=== PATIENT | female | born 1940 | race Caucasian/White ===

== ENCOUNTER → 2017-09-28 | Outpatient (REF) | payer MEDICARE ==
[2014-06-05 15:19] VITALS: BMI 27.3
[~2017-09-28] MED LIST: ACET-1748 PO; ACET-2031 PO; ALB0.5 INH; ALBU8.5H IH; ALBU8.5H12 IH; AMLO-99 PO; ASP325 PO; ASPI-1441 PO; ASPI-1471 PO; ASPI-715 PO; ASPI-719 PO; ASPI-757 PO; ASPI81TA94 PO; AZIT500T47 PO; BACDS PO; BENZ100C4 PO; CALC-488 PO; CEF300 PO; CEFD300C35 PO; CEFU250 PO; CELE100C79 PO; CELEXA; CEPH500C24; CEPH500T7 PO; CHOL200021 PO; CIP500 PO; CIPR-326 PO; CIPR-344 PO; CLO75 PO; CLON-393 PO; CLON1 PO; CRAN400C2 PO; CYC10 PO; DIAZ-308 PO; DOCU-202 PO; DOXY-228 PO; DUONEB INH; ENAL20TA99 PO; GAB300 PO; GABA-549 PO; GLIP-152 PO; GLIP-175 PO; GUA5L PO; GUALA600 PO; HCTZ25 PO; HYDEL PO; HYDR-2966 PO; HYDR-3078 PO; HYDR-385 PO; HYDR2TAB4 PO; HYDR473S4 PO; INSU100C12 SQ; INSU100I30 SQ; INSU500V2 SC; INSU500V2 SUBQ; IPRA3AMP IH; KET10 PO; LANI SC; LANI SQ; LANI SUBQ; LEV500 PO; LEVE500 PO; LEVE500T88 PO; LEVO75TA73 PO; LOR5/325; LOR5/325 PO; LORA-1221 PO; LORA-1254 PO; LORA-1455 PO; LORA-630 PO; MECL25TA9 PO; MEMA10TA18 PO; METF-420 PO; METO-222 PO; METO-235 PO; METO-257 PO; METO200T32 PO; METO200T33 PO; METXL50 PO; NAPR-1043 PO; NEUROTIN; NIT100 PO; NIT4 SL; NITR0.4T3 SL; NITROPATCH TD; NOVOLOG SUBQ; NPH,100V10 SQ; ONDA-153 SL; ONDA-2 PO; ONDA4TAB PO; OXYGEN INH; OXYGENHOME INH; PANT40TA65 PO; PER PO; POLY17PO25 PO; POTA-23 PO; POTA10CA40 PO; POTA20PA10 PO; PRA20 PO; PRAV20TA66 PO; PRE10 PO; PRE20 PO; PRED-314 PO; QUIN20TA43 PO; SERT-184 PO; SULF-198 PO; SUMA100T32 PO; TRAM-420 PO; TRAM100T22 PO; TRAM100T30 PO; VERS120 PO; ZOLP-350 PO; [UNRECOGNIZED DRUG - CODE] PO; [UNRECOGNIZED DRUG - CODE] SQ; [UNRECOGNIZED DRUG - OTHER]; [UNRECOGNIZED DRUG - OTHER] SQ; [UNRECOGNIZED DRUG - OTHER] TOP
== END ==
LOC: ZZSENDIN 15:25
PROVIDERS: ATTEND Physician Assistant
DX: I50.30 Unspecified diastolic (congestive) heart failure (principal)
CPT/HCPCS: 83880

== ENCOUNTER 2017-10-05 17:23 | Inpatient (IN) | payer MEDICARE ==
[~2017-10-05] VITALS: Ht 160 cm; Wt 87.7 kg
[~2017-10-05 17:23] MED LIST changes: -ALB18R INH; -FURO20TA19 PO; -INSU100I30 SUBQ; -INSU200I SQ; -NITR-1 PO; -TAMS0.4C70 PO
[2017-10-05] MEDS ORDERED: NS(*) 0.9% 1000 ML BAG 1,000 ML IV ONE (17:27)
[2017-10-05] MEDS ORDERED: ONDANSETRON 4 MG/2 ML VIAL IVP ONE (17:30)
--- NOTE | 2017-10-05 17:31 | ER Report ---
History and Physical Time Seen By MD: 17:29 Hx. of Stated Complaint: fall head pain HPI/ROS 77-year-old female was out shopping with her family members became weak and dizzy L exiting a store passed out and hit her head on a gas pipe and has a bruise on her right parietal area of her head complains of head pain and neck pain states she has not eaten since breakfast this morning and does have a long history of COPD he is oxygen dependent and sats were mid 80s on ambulances arrival. Daughter tells me she's been working with Esequiel Wooten they have given her Lasix which she's taken a little over one week Allergies: Coded Allergies: morphine (Verified Allergy, Unknown, HIVES, 05/20/17) codeine (Verified Adverse Reaction, Unknown, NAUSEA/VOMITING, 05/20/17) Home Meds Active Scripts Albuterol Sul Hfa 90 Mcg 8 Gm (VENTOLIN HFA 90 MCG 8 GM) 8.5 Gm Hfa.aer.ad, 2 PUFF IH Q4-6H, #1 Prov:DINORAH BLANCO DO 11/21/14 Reported Medications Furosemide (LASIX) 20 Mg Tablet, 1 TAB PO Q8H, TAB 10/05/17 Sertraline Hcl (SERTRALINE HCL) 50 Mg Tablet, 1 TAB PO QDAY, TAB 01/25/17 Oxygen (OXYGEN) Inha, 0 INH, L 06/21/15 Nitroglycerin (NITROSTAT) 0.4 Mg Subl, 0.4 MG SL PRN, TAB 06/21/15 Insulin Aspart (NOVOLOG) 100 Unit/Ml Soln, 14 UNIT SUBQ TID, UNITS 06/21/15 Insulin Glargine (LANTUS) 100 Unit/Ml Soln, 30 UNIT SUBQ BID, UNITS 06/21/15 Aspirin (ASPIR 81) 81 Mg Tablet.dr, 81 MG PO QDAY, TAB 06/21/15 Gabapentin (GABAPENTIN) 300 Mg Capsule, 300 MG PO TID, CAPSULE 06/21/15 Potassium Chloride (POTASSIUM CHLORIDE) 10 Meq Capsule.er, 10 MEQ PO BID, CAP 06/21/15 Pravastatin Sodium (PRAVASTATIN SODIUM) 20 Mg Tablet, 20 MG PO QDAY, TAB 06/21/15 Pantoprazole Sodium (PANTOPRAZOLE SODIUM) 40 Mg Tablet.dr, 40 MG PO QDAY, TAB.SR 06/21/15 Metoprolol Tartrate (METOPROLOL TARTRATE) 100 Mg Tablet, 1 TAB PO BID, TAB 06/21/15 Enalapril Maleate (ENALAPRIL MALEATE) 20 Mg Tablet, 20 MG PO BID, TAB 06/21/15 Amlodipine Besylate (AMLODIPINE BESYLATE) 10 Mg Tablet, 1 TAB PO QDAY, TAB 06/21/15 Past Medical/Surgical History History of laser surgery to the left eye, history of glaucoma, tonsillectomy, CVA, dementia, seizures, peripheral neuropathy, head trauma, memory loss, weakness, NM, CHF, CAD, cardiac catheter, coronary stent, anticoagulate and therapy,Diabetes Reviewed Nurses Notes: Yes Old Medical Records Reviewed: Yes Hx Smoking: No Smoking Status: Former Smoker Exposure to Second Hand Smoke?: Yes Hx Substance Use Disorder: No Hx Alcohol Use: No Family History of: Diabetes Constitutional Vital Sign - Last 24 Hours 10/05/17 10/05/17 10/05/17 10/05/17 17:23 17:27 17:30 17:31 Temp 97.9 Pulse ??? 63 Resp 18 B/P (MAP) 147/93 137/125 (129) 147/93 (111) Pulse Ox 93 O2 Delivery Room Air 10/05/17 10/05/17 10/05/17 10/05/17 17:38 17:45 17:53 18:00 Pulse 63 62 Resp 91 8 B/P (MAP) 138/105 (116) 132/87 (102) Pulse Ox 92 98 10/05/17 10/05/17 10/05/17 10/05/17 18:08 18:17 18:23 18:30 Pulse ??? 62 Resp 11 B/P (MAP) 128/52 (77) 133/72 (92) Pulse Ox 92 10/05/17 10/05/17 10/05/17 10/05/17 18:38 18:45 18:53 19:00 Pulse 70 71 Resp 21 14 B/P (MAP) 137/99 (112) 145/93 (110) Pulse Ox 92 96 10/05/17 10/05/17 10/05/17 19:08 19:15 19:33 Pulse 68 Resp 15 B/P (MAP) 136/75 (95) Pulse Ox 98 O2 Flow Rate 3.0 Physical Exam 77-year-old female is awake alert answers questions had normocephalic she does have bruising in her right parietal aspect of her head tympanic membranes are non-reddened throat is non-reddened neck is supple no JVD slight pain right side with movement she is wearing a c-collar on arrival placed by EMS heart rate is regular chest wall intact abdomen is obese the pain palpation bowel sounds 4 moves all extremities trace edema to bilateral lower extremities Medical Decision Making Data Points Result Diagram: 10/05/17174910/05/171749 Laboratory Hematology Test 10/05/17 17:50 10/05/17 17:51 10/05/17 19:01 Red Blood Count 4.58 M/uL (4.17-5.56) Mean Corpuscular Volume 81.6 fL (80.0-96.0) Mean Corpuscular Hemoglobin 26.9 pg (26.0-33.0) Mean Corpuscular Hemoglobin Concent 33.0 g/dL (32.0-36.0) Red Cell Distribution Width 14.7 % (11.5-14.5) Mean Platelet Volume 9.4 fL (7.2-11.1) Neutrophils (%) (Auto) 44.5 % (39.4-72.5) Lymphocytes (%) (Auto) 42.8 % (17.6-49.6) Monocytes (%) (Auto) 8.8 % (4.1-12.4) Eosinophils (%) (Auto) 3.1 % (0.4-6.7) Basophils (%) (Auto) 0.8 % (0.3-1.4) Nucleated RBC Relative Count (auto) 0.0 /100WBC Neutrophils # (Auto) 3.1 K/uL (2.0-7.4) Lymphocytes # (Auto) 3.0 K/uL (1.3-3.6) Monocytes # (Auto) 0.6 K/uL (0.3-1.0) Eosinophils # (Auto) 0.2 K/uL (0.0-0.5) Basophils # (Auto) 0.1 K/uL (0.0-0.1) Nucleated RBC Absolute Count (auto) 0.00 K/uL Prothrombin Time 14.4 seconds (12.0-14.4) Prothromb Time International Ratio 1.12 Activated Partial Thromboplast Time 30 seconds (23-35) Sodium Level 136 mmol/L (137-145) Potassium Level 4.9 mmol/L (3.5-5.0) Chloride Level 101 mmol/L (98-107) Carbon Dioxide Level 25 mmol/L (22-31) Blood Urea Nitrogen 37 mg/dl (7-18) Creatinine 1.60 mg/dl (0.52-1.04) Glomerular Filtration Rate Calc 31.4 Random Glucose 247 mg/dl (75-110) Calcium Level 9.0 mg/dl (8.4-10.2) Total Bilirubin 0.4 mg/dl (0.2-1.3) Aspartate Amino Transf (AST/SGOT) 30 U/L (0-35) Alanine Aminotransferase (ALT/SGPT) 33 U/L (0-56) Alkaline Phosphatase 103 U/L (0-126) Troponin I < 0.012 ng/ml B-Type Natriuretic Peptide 458 pg/ml (0-100) Total Protein 7.6 gm/dl (6.3-8.2) Albumin 3.8 g/dl (3.5-5.0) Lipase 40 U/L (23-300) Whole Blood Glucose 234 mg/DL (75-110) Urine Color Yellow Urine Clarity Slightly-cloudy Urine pH 5.0 pH (4.8-9.5) Urine Specific [place] 1.012 Urine Protein Negative mg/dL (NEGATIVE) Urine Glucose (UA) 50 mg/dL (NEGATIVE) Urine Ketones Negative mg/dL (NEGATIVE) Urine Blood Negative (NEGATIVE) Urine Nitrite Negative (NEGATIVE) Urine Bilirubin Negative (NEGATIVE) Urine Urobilinogen Negative mg/dL (0.2-1.9) Urine Leukocyte Esterase Negative (NEGATIVE) Urine RBC 1 /HPF (0-2/HPF) Urine WBC 1 /HPF (0-5/HPF) Urine Squamous Epithelial Cells Many /LPF (</=FEW) Urine Bacteria Few /HPF (NONE-FEW) Urine Hyaline Casts Moderate /LPF (NONE-FEW) Urine Mucus Few /HPF (NONE-FEW) Chemistry Test 10/05/17 17:50 10/05/17 17:51 10/05/17 19:01 White Blood Count 7.1 k/uL (4.5-11.0) Red Blood Count 4.58 M/uL (4.17-5.56) Hemoglobin 12.3 g/dL (12.0-16.0) Hematocrit 37.4 % (34.0-47.0) Mean Corpuscular Volume 81.6 fL (80.0-96.0) Mean Corpuscular Hemoglobin 26.9 pg (26.0-33.0) Mean Corpuscular Hemoglobin Concent 33.0 g/dL (32.0-36.0) Red Cell Distribution Width 14.7 % (11.5-14.5) Platelet Count 166 K/uL (150-450) Mean Platelet Volume 9.4 fL (7.2-11.1) Neutrophils (%) (Auto) 44.5 % (39.4-72.5) Lymphocytes (%) (Auto) 42.8 % (17.6-49.6) Monocytes (%) (Auto) 8.8 % (4.1-12.4) Eosinophils (%) (Auto) 3.1 % (0.4-6.7) Basophils (%) (Auto) 0.8 % (0.3-1.4) Nucleated RBC Relative Count (auto) 0.0 /100WBC Neutrophils # (Auto) 3.1 K/uL (2.0-7.4) Lymphocytes # (Auto) 3.0 K/uL (1.3-3.6) Monocytes # (Auto) 0.6 K/uL (0.3-1.0) Eosinophils # (Auto) 0.2 K/uL (0.0-0.5) Basophils # (Auto) 0.1 K/uL (0.0-0.1) Nucleated RBC Absolute Count (auto) 0.00 K/uL Prothrombin Time 14.4 seconds (12.0-14.4) Prothromb Time International Ratio 1.12 Activated Partial Thromboplast Time 30 seconds (23-35) Glomerular Filtration Rate Calc 31.4 Calcium Level 9.0 mg/dl (8.4-10.2) Total Bilirubin 0.4 mg/dl (0.2-1.3) Aspartate Amino Transf (AST/SGOT) 30 U/L (0-35) Alanine Aminotransferase (ALT/SGPT) 33 U/L (0-56) Alkaline Phosphatase 103 U/L (0-126) Troponin I < 0.012 ng/ml B-Type Natriuretic Peptide 458 pg/ml (0-100) Total Protein 7.6 gm/dl (6.3-8.2) Albumin 3.8 g/dl (3.5-5.0) Lipase 40 U/L (23-300) Whole Blood Glucose 234 mg/DL (75-110) Urine Color Yellow Urine Clarity Slightly-cloudy Urine pH 5.0 pH (4.8-9.5) Urine Specific [place] 1.012 Urine Protein Negative mg/dL (NEGATIVE) Urine Glucose (UA) 50 mg/dL (NEGATIVE) Urine Ketones Negative mg/dL (NEGATIVE) Urine Blood Negative (NEGATIVE) Urine Nitrite Negative (NEGATIVE) Urine Bilirubin Negative (NEGATIVE) Urine Urobilinogen Negative mg/dL (0.2-1.9) Urine Leukocyte Esterase Negative (NEGATIVE) Urine RBC 1 /HPF (0-2/HPF) Urine WBC 1 /HPF (0-5/HPF) Urine Squamous Epithelial Cells Many /LPF (</=FEW) Urine Bacteria Few /HPF (NONE-FEW) Urine Hyaline Casts Moderate /LPF (NONE-FEW) Urine Mucus Few /HPF (NONE-FEW) Coagulation Test 10/05/17 17:50 Prothrombin Time 14.4 seconds Prothromb Time International Ratio 1.12 Activated Partial Thromboplast Time 30 seconds Urinalysis Test 10/05/17 19:01 Urine Color Yellow Urine Clarity Slightly-cloudy Urine pH 5.0 pH (4.8-9.5) Urine Specific [place] 1.012 Urine Protein Negative mg/dL (NEGATIVE) Urine Glucose (UA) 50 mg/dL (NEGATIVE) Urine Ketones Negative mg/dL (NEGATIVE) Urine Blood Negative (NEGATIVE) Urine Nitrite Negative (NEGATIVE) Urine Bilirubin Negative (NEGATIVE) Urine Urobilinogen Negative mg/dL (0.2-1.9) Urine Leukocyte Esterase Negative (NEGATIVE) Urine RBC 1 /HPF (0-2/HPF) Urine WBC 1 /HPF (0-5/HPF) Urine Squamous Epithelial Cells Many /LPF (</=FEW) Urine Bacteria Few /HPF (NONE-FEW) Urine Hyaline Casts Moderate /LPF (NONE-FEW) Urine Mucus Few /HPF (NONE-FEW) EKG/Imaging Imaging FACILITY: [facility] [place] PATIENT NAME: Ambar Rodriguez : 1940 MR: [id number] V: [id number] EXAM DATE: ORDERING PHYSICIAN: YARI FLORES TECHNOLOGIST: Location: [facility] [place] Patient: Ambar Rodriguez : 1940 Visit/Account:[id number] Date of Sevice: 10/05/2017 CT Head without contrast and CT Cervical spine: Indication: Fall and hit head. Comparison: CT of the head and cervical spine on 12/07/2014. Technique: CT head: Axial CT images were obtained through the brain from the skull base to the vertex without administration of IV contrast. Reformatted coronal and sagittal images were also obtained. Technique: CT cervical spine: Axial CT imaging of the cervical spine was performed. 2-D sagittal and coronal CT reformats were also obtained. One of the following dose optimization techniques was utilized in the performance of this exam: Automated exposure control; adjustment of the mA and/ or kV according to the patient's size; or use of an iterative reconstruction technique. Specific details can be referenced in the facility's radiology CT exam operational policy. FINDINGS: CT head: No intracranial bleed, midline shift, mass effect, extra-axial fluid collection or hydrocephalus. Age-related shoe atrophy. Periventricular white matter ischemic changes consistent small vessel disease. Small lacunar infarct seen in the right basal ganglia. Mcmahan/white matter differentiation appears normal. No significant change from previous examination. Mild bilateral internal carotid artery calcifications. Bony structures show no fractures or lesions. Sinuses and mastoids visualized are clear. CT cervical spine: The vertebral bodies are aligned. There is mild reverse curvature present most from degenerative changes. No indication of acute fracture or facet dislocation. There is again mild decreased height in the C6 vertebral body. Diffuse osteopenia. There is diffuse bbeh-er-bzrdzpkg degenerative change including disc space narrowing, endplate changes, osteophytes and facet arthropathy. No discrete bony canal stenosis. Multilevel neural foramina narrowing. No obvious disc herniation. The endplates are maintained. Prevertebral soft tissues are normal. Surrounding soft tissues are unremarkable. The thyroid is again mildly enlarged and multinodular with calcination in the left lobe. Lung apices are clear. IMPRESSION: 1. The brain shows senescent changes without acute abnormality. No fracture. 2. No acute osseous or acute alignment abnormality of the cervical spine. Degenerative changes and osteopenia. 3. Continued mild enlarged multinodular thyroid. Report Dictated By: Dave Mckenna at 10/05/2017 6:33 PM Report E-Signed By: Dave Mckenna at 10/05/2017 6:43 PM WSN:[id number]: [facility] [place] PATIENT NAME: Ambar Rodriguez : 1940 MR: [id number] V: [id number] EXAM DATE: ORDERING PHYSICIAN: YARI FLORES TECHNOLOGIST: Location: [facility] [place] Patient: Ambar Rodriguez : 1940 Visit/Account:[id number] Date of Sevice: 10/05/2017 CT Head without contrast and CT Cervical spine: Indication: Fall and hit head. Comparison: CT of the head and cervical spine on 12/07/2014. Technique: CT head: Axial CT images were obtained through the brain from the skull base to the vertex without administration of IV contrast. Reformatted coronal and sagittal images were also obtained. Technique: CT cervical spine: Axial CT imaging of the cervical spine was performed. 2-D sagittal and coronal CT reformats were also obtained. One of the following dose optimization techniques was utilized in the performance of this exam: Automated exposure control; adjustment of the mA and/ or kV according to the patient's size; or use of an iterative reconstruction technique. Specific details can be referenced in the facility's radiology CT exam operational policy. FINDINGS: CT head: No intracranial bleed, midline shift, mass effect, extra-axial fluid collection or hydrocephalus. Age-related shoe atrophy. Periventricular white matter ischemic changes consistent small vessel disease. Small lacunar infarct seen in the right basal ganglia. Mcmahan/white matter differentiation appears normal. No significant change from previous examination. Mild bilateral internal carotid artery calcifications. Bony structures show no fractures or lesions. Sinuses and mastoids visualized are clear. CT cervical spine: The vertebral bodies are aligned. There is mild reverse curvature present most from degenerative changes. No indication of acute fracture or facet dislocation. There is again mild decreased height in the C6 vertebral body. Diffuse osteopenia. There is diffuse zhbo-tu-dqdefugu degenerative change including disc space narrowing, endplate changes, osteophytes and facet arthropathy. No discrete bony canal stenosis. Multilevel neural foramina narrowing. No obvious disc herniation. The endplates are maintained. Prevertebral soft tissues are normal. Surrounding soft tissues are unremarkable. The thyroid is again mildly enlarged and multinodular with calcination in the left lobe. Lung apices are clear. IMPRESSION: 1. The brain shows senescent changes without acute abnormality. No fracture. 2. No acute osseous or acute alignment abnormality of the cervical spine. Degenerative changes and osteopenia. 3. Continued mild enlarged multinodular thyroid. ED Course/Re-evaluation Clinical Indication for ER IV: Hydration ED Course Failed outpatient treatment for fluid diuresis creatinine tonight is 1.6 be [address] Keyes overnight for gentle fluid hydration and repeat check labs tomorrow morning c-collar has been removed CT head and neck have been read as negative Re-evaluation Feeling some better after treatment and still has a headache she rates as a 7 on a 0-10 scale she has been given fentanyl IV for this did talk to family and daughter and daughter in January of aspirated her to be admitted overnight, I did talk to Dr. Keyes hospitalist and he agrees to keep her for IV hydration and recheck labs in the morning Decision to Disposition Date: Oct 05, 2017 Decision to Disposition Time: 19:32 Depart Departure Latest Vital Signs Vital Signs Date Time Temp Pulse Resp B/P (MAP) Pulse Ox O2 Delivery O2 Flow Rate FiO2 10/05/17 19:33 3.0 10/05/17 19:15 136/75 (95) 10/05/17 19:08 68 15 98 10/05/17 17:27 97.9 Room Air Impression: Primary Impression: Syncope Additional Impressions: Dehydration Head injury Diabetes type 2, uncontrolled Condition: Improved Disposition: Admitted from ER Referrals: ESEQUIEL WOOTEN PA-C (PCP) Problem Qualifiers YARI FLORES Oct 05, 2017 17:31
--- NOTE | 2017-10-05 17:49 | EKG ---
[place] [facility] [place] NAME: FAHAD MORENO : [id number] MR: [id number] V: [id number] EXAM DATE: ORDERING PHYSICIAN: YARI FLORES TECHNOLOGIST: NEERU Test Reason : DIZZY Blood Pressure : / mmHG Vent. Rate : 063 BPM Atrial Rate : 063 BPM P-R Int : 182 ms QRS Dur : 086 ms QT Int : 448 ms P-R-T Axes : 071 -12 060 degrees QTc Int : 458 ms Sinus rhythm Left axis No acute appearing findings Confirmed by KALYN MADISON ([id number]) on 10/05/2017 8:19:20 PM Referred By: SHILOH Confirmed By:KALYN MADISON
[2017-10-05 18:05] LABS: PLATELET COUNT, AUTOMATED 166 K/uL (150-450)
[2017-10-05 18:16] LABS: INR 1.12
[2017-10-05] MEDS ORDERED: fentaNYL CITR 100 MCG/2 ML AMP IVP ONE (18:40)
--- NOTE | 2017-10-05 18:48 | RADIOLOGY IMAGING REPORT ---
FACILITY: PATIENT NAME: Ambar Rodriguez : 1940 MR: [id number] V: [id number] EXAM DATE: ORDERING PHYSICIAN: YARI FLORES TECHNOLOGIST: Location: [facility] - [place], [place] Patient: Ambar Rodriguez : 1940 Visit/Account:[id number] Date of Sevice: 10/05/2017 CT Head without contrast and CT Cervical spine: Indication: Fall and hit head. Comparison: CT of the head and cervical spine on 12/07/2014. Technique: CT head: Axial CT images were obtained through the brain from the skull base to the verte x without administration of IV contrast. Reformatted coronal and sagittal images were also obtained. Technique: CT cervical spine: Axial CT imaging of the cervical spine was performed. 2-D sagittal and coronal CT reformats were also obtained. One of the following dose optimization techniques was utilized in the performance of this exam: Autom ated exposure control; adjustment of the mA and/or kV according to the patient's size; or use of an i terative reconstruction technique. Specific details can be referenced in the facility's radiology C T exam operational policy. FINDINGS: CT head: No intracranial bleed, midline shift, mass effect, extra-axial fluid collection or hydrocephalus. Age -related shoe atrophy. Periventricular white matter ischemic changes consistent small vessel disease. Small lacunar infarct seen in the right basal ganglia. Mcmahan/white matter differentiation appears nor mal. No significant change from previous examination. Mild bilateral internal carotid artery calcific ations. Bony structures show no fractures or lesions. Sinuses and mastoids visualized are clear. CT cervical spine: The vertebral bodies are aligned. There is mild reverse curvature present most from degenerative borges ges. No indication of acute fracture or facet dislocation. There is again mild decreased height in th e C6 vertebral body. Diffuse osteopenia. There is diffuse tifb-tl-idstdofg degenerative change includ ing disc space narrowing, endplate changes, osteophytes and facet arthropathy. No discrete bony canal stenosis. Multilevel neural foramina narrowing. No obvious disc herniation. The endplates are mainta ined. Prevertebral soft tissues are normal. Surrounding soft tissues are unremarkable. The thyroid is again mildly enlarged and multinodular with calcination in the left lobe. Lung apices are clear. IMPRESSION: 1. The brain shows senescent changes without acute abnormality. No fracture. 2. No acute osseous or acute alignment abnormality of the cervical spine. Degenerative changes and os teopenia. 3. Continued mild enlarged multinodular thyroid. Report Dictated By: Dave Mckenna at 10/05/2017 6:33 PM Report E-Signed By: Dave Mckenna at 10/05/2017 6:43 PM WSN:[id number]
--- NOTE | 2017-10-05 18:48 | RADIOLOGY IMAGING REPORT ---
FACILITY: [facility] [place] PATIENT NAME: Ambar Rodriguez : 1940 MR: [id number] V: [id number] EXAM DATE: ORDERING PHYSICIAN: YARI FLORES TECHNOLOGIST: Location: [facility] Patient: Ambar Rodriguez : 1940 Visit/Account:[id number] Date of Sevice: 10/05/2017 CT Head without contrast and CT Cervical spine: Indication: Fall and hit head. Comparison: CT of the head and cervical spine on 12/07/2014. Technique: CT head: Axial CT images were obtained through the brain from the skull base to the verte x without administration of IV contrast. Reformatted coronal and sagittal images were also obtained. Technique: CT cervical spine: Axial CT imaging of the cervical spine was performed. 2-D sagittal and coronal CT reformats were also obtained. One of the following dose optimization techniques was utilized in the performance of this exam: Autom ated exposure control; adjustment of the mA and/or kV according to the patient's size; or use of an i terative reconstruction technique. Specific details can be referenced in the facility's radiology C T exam operational policy. FINDINGS: CT head: No intracranial bleed, midline shift, mass effect, extra-axial fluid collection or hydrocephalus. Age -related shoe atrophy. Periventricular white matter ischemic changes consistent small vessel disease. Small lacunar infarct seen in the right basal ganglia. Mcmahan/white matter differentiation appears nor mal. No significant change from previous examination. Mild bilateral internal carotid artery calcific ations. Bony structures show no fractures or lesions. Sinuses and mastoids visualized are clear. CT cervical spine: The vertebral bodies are aligned. There is mild reverse curvature present most from degenerative borges ges. No indication of acute fracture or facet dislocation. There is again mild decreased height in th e C6 vertebral body. Diffuse osteopenia. There is diffuse svyx-sq-pbrmvoup degenerative change includ ing disc space narrowing, endplate changes, osteophytes and facet arthropathy. No discrete bony canal stenosis. Multilevel neural foramina narrowing. No obvious disc herniation. The endplates are mainta ined. Prevertebral soft tissues are normal. Surrounding soft tissues are unremarkable. The thyroid is again mildly enlarged and multinodular with calcination in the left lobe. Lung apices are clear. IMPRESSION: 1. The brain shows senescent changes without acute abnormality. No fracture. 2. No acute osseous or acute alignment abnormality of the cervical spine. Degenerative changes and os teopenia. 3. Continued mild enlarged multinodular thyroid. Report Dictated By: Dave Mckenna at 10/05/2017 6:33 PM Report E-Signed By: Dave Mckenna at 10/05/2017 6:43 PM WSN:[id number]
[2017-10-05] MEDS ORDERED: FURO20TA19 PO (19:04)
[2017-10-05 21:00] VITALS: BP 151/69
[2017-10-05] MEDS ORDERED: INFLUENZA VIRUS VAC 0.5 ML SYR IM ONLY ONE (21:05)
--- NOTE | 2017-10-05 21:19 | History & Physical ---
History of Present Illness Chief Complaint Passed out History of Present Illness 77yo female with PMHx significant for HTN, type 2 DM, dementia, possible CHF. She reports feeling very lightheaded/dizzy and ultimately passing out earlier today while shopping. She struck her right frontal area. She was with family and it is reported she awoke quickly. No reported seizure activity. She denied any other prodromal symptoms such as CP/palpitations/dyspnea. She now has some headache and upper chest pain from striking these areas in her fall. She was evaluated in the ER and found to have evidence of dehydration. Rest of her evaluation was rather unremarkable. She was recommended for admission. History Problems: (1) Type 2 diabetes mellitus Status: Chronic (2) DVT (deep venous thrombosis) Status: Resolved (3) Depression with anxiety Status: Chronic (4) CAD (coronary artery disease) Status: Chronic (5) Fibromyalgia Status: Chronic (6) Intracranial hemorrhage Status: Resolved (7) HTN (hypertension) Status: Chronic (8) Diastolic heart failure Status: Chronic (9) Cerebral vascular disease Status: Chronic (10) Dementia Status: Chronic Home Meds Active Scripts Albuterol Sul Hfa 90 Mcg 8 Gm (VENTOLIN HFA 90 MCG 8 GM) 8.5 Gm Hfa.aer.ad, 2 PUFF IH Q4-6H, #1 Prov:DINORAH BLANCO DO 11/21/14 Reported Medications Furosemide (LASIX) 20 Mg Tablet, 1 TAB PO Q8H, TAB 10/05/17 Sertraline Hcl (SERTRALINE HCL) 50 Mg Tablet, 1 TAB PO QDAY, TAB 01/25/17 Oxygen (OXYGEN) Inha, 0 INH, L 06/21/15 Nitroglycerin (NITROSTAT) 0.4 Mg Subl, 0.4 MG SL PRN, TAB 06/21/15 Insulin Aspart (NOVOLOG) 100 Unit/Ml Soln, 14 UNIT SUBQ TID, UNITS 06/21/15 Insulin Glargine (LANTUS) 100 Unit/Ml Soln, 30 UNIT SUBQ BID, UNITS 06/21/15 Aspirin (ASPIR 81) 81 Mg Tablet.dr, 81 MG PO QDAY, TAB 06/21/15 Gabapentin (GABAPENTIN) 300 Mg Capsule, 300 MG PO TID, CAPSULE 06/21/15 Potassium Chloride (POTASSIUM CHLORIDE) 10 Meq Capsule.er, 10 MEQ PO BID, CAP 06/21/15 Pravastatin Sodium (PRAVASTATIN SODIUM) 20 Mg Tablet, 20 MG PO QDAY, TAB 06/21/15 Pantoprazole Sodium (PANTOPRAZOLE SODIUM) 40 Mg Tablet.dr, 40 MG PO QDAY, TAB.SR 06/21/15 Metoprolol Tartrate (METOPROLOL TARTRATE) 100 Mg Tablet, 1 TAB PO BID, TAB 06/21/15 Enalapril Maleate (ENALAPRIL MALEATE) 20 Mg Tablet, 20 MG PO BID, TAB 06/21/15 Amlodipine Besylate (AMLODIPINE BESYLATE) 10 Mg Tablet, 1 TAB PO QDAY, TAB 06/21/15 Allergies: Coded Allergies: morphine (Verified Allergy, Unknown, HIVES, 05/20/17) codeine (Verified Adverse Reaction, Unknown, NAUSEA/VOMITING, 05/20/17) Patient History: FH: diabetes mellitus FATHER, , Age:56 MOTHER, BROTHER OR SISTER CHILD FH: hypertension FATHER, , Age:56 MOTHER, BROTHER OR SISTER CHILD CHILD Gangrene FATHER, , Age:56 Hx Smoking: No Smoking Status: Former Smoker Exposure to Second Hand Smoke?: Yes Caffeine Intake: Coffee Caffeine/Cups Per Day: 2-3 Hx Alcohol Use: Yes (none currently) Hx Substance Use Disorder: No Social Drug Use: Former Review of Systems Constitutional: No Fever, No Chills Neurological: Syncope, Confusion, Weakness, Dizziness Eyes: No Vision Change ENT: No Hearing Loss Cardiovascular: Chest Pain, Orthostatic Hypotension, No Palpitations Respiratory: No Shortness of Breath, No Cough Gastrointestinal: No Nausea, No Vomiting, No Diarrhea, No Hematemesis, No Hematochezia, No Melena, No Abdominal Pain Genitourinary: No Dysuria, No Hematuria Musculoskeletal: Pain Psychiatric: Depression Exam Vital Signs Vital Signs Date Time Temp Pulse Resp B/P (MAP) Pulse Ox O2 Delivery O2 Flow Rate FiO2 10/05/17 20:12 97.7 10/05/17 19:33 3.0 10/05/17 19:15 136/75 (95) 10/05/17 19:08 68 15 98 10/05/17 17:27 Room Air General Appearance: Alert, Awake, No Acute Distress Neuro: No Gross deficits Eyes: PERRLA (EOMI) ENT: Oropharynx Clear, Other (ecchymosis/hematoma over right frontal area) Neck: No Masses Cardiovascular: Regular Rate and Rhythm Respiratory: Clear to Auscultation Chest: Other (tender over upper sternum/manubrium) GI: Abd Soft and Non-Tender : No CVA Tenderness Extremities: Warm, Perfused Integumentary: Scaly / Dry Skin Medical Decision Making Data Points Result Diagram: 10/05/17 17510/05/17 175 Item Value Date Time B-Type Natriuretic Peptide 458 pg/ml H 10/05/17 1750 Troponin I < 0.012 ng/ml 10/05/17 1750 Lipase 40 U/L 10/05/17 1750 Albumin 3.8 g/dl 10/05/17 1750 Total Protein 7.6 gm/dl 10/05/17 1750 Alkaline Phosphatase 103 U/L 10/05/17 1750 Alanine Aminotransferase (ALT/SGPT) 33 U/L 10/05/17 1750 Aspartate Amino Transf (AST/SGOT) 30 U/L 10/05/17 1750 Total Bilirubin 0.4 mg/dl 10/05/17 1750 Calcium Level 9.0 mg/dl 10/05/17 1750 Activated Partial Thromboplast Time 30 seconds 10/05/17 1750 Prothromb Time International Ratio 1.12 10/05/17 1750 Prothrombin Time 14.4 seconds 10/05/17 1750 Urine Color Yellow 10/05/17 190 Urine Clarity Slightly-cloudy 10/05/171900 Urine pH 5.0 pH 10/05/17 190 Urine Specific [place] 1.012 10/05/17 1901 Urine Protein Negative mg/dL 10/05/17 190 Urine Glucose (UA) 50 mg/dL H 10/05/17 1901 Urine Ketones Negative mg/dL 10/05/17 190 Urine Blood Negative 10/05/17 190 Urine Nitrite Negative 10/05/17 190 Urine Bilirubin Negative 10/05/17 190 Urine Leukocyte Esterase Negative 10/05/17 190 Urine Urobilinogen Negative mg/dL 10/05/17 1901 Urine RBC 1 /HPF 10/05/17 1901 Urine WBC 1 /HPF 10/05/17 1901 Urine Squamous Epithelial Cells Many /LPF H 10/05/17 1901 Urine Bacteria Few /HPF 10/05/17 1901 Urine Hyaline Casts Moderate /LPF H 10/05/171900 Urine Mucus Few /HPF 10/05/171900 EKG / Imaging EKG Interpretation PATIENT NAME: FAHAD RODRIGUEZ : [id number] MR: [id number] V: [id number] EXAM DATE: ORDERING PHYSICIAN: YARI FLORES TECHNOLOGIST: Test Reason : DIZZY Blood Pressure : / mmHG Vent. Rate : 063 BPM Atrial Rate : 063 BPM P-R Int : 182 ms QRS Dur : 086 ms QT Int : 448 ms P-R-T Axes : 071 -12 060 degrees QTc Int : 458 ms Sinus rhythm Left axis No acute appearing findings Confirmed by KALYN MADISON ([id number]) on 10/05/2017 8:19:20 PM Referred By: SHILOH Confirmed By:KALYN MADISON Imaging PATIENT NAME: Fahad Rodriguez : 1940 MR: [id number] V: [id number] EXAM DATE: ORDERING PHYSICIAN: YARI FLORES TECHNOLOGIST: Location: Patient: Fahad Rodriguez : 1940 Visit/Account:[id number] Date of Sevice: 10/05/2017 CT Head without contrast and CT Cervical spine: Indication: Fall and hit head. Comparison: CT of the head and cervical spine on 12/07/2014. Technique: CT head: Axial CT images were obtained through the brain from the skull base to the vertex without administration of IV contrast. Reformatted coronal and sagittal images were also obtained. Technique: CT cervical spine: Axial CT imaging of the cervical spine was performed. 2-D sagittal and coronal CT reformats were also obtained. One of the following dose optimization techniques was utilized in the performance of this exam: Automated exposure control; adjustment of the mA and/ or kV according to the patient's size; or use of an iterative reconstruction technique. Specific details can be referenced in the facility's radiology CT exam operational policy. FINDINGS: CT head: No intracranial bleed, midline shift, mass effect, extra-axial fluid collection or hydrocephalus. Age-related shoe atrophy. Periventricular white matter ischemic changes consistent small vessel disease. Small lacunar infarct seen in the right basal ganglia. Mcmahan/white matter differentiation appears normal. No significant change from previous examination. Mild bilateral internal carotid artery calcifications. Bony structures show no fractures or lesions. Sinuses and mastoids visualized are clear. CT cervical spine: The vertebral bodies are aligned. There is mild reverse curvature present most from degenerative changes. No indication of acute fracture or facet dislocation. There is again mild decreased height in the C6 vertebral body. Diffuse osteopenia. There is diffuse [id number] degenerative change including disc space narrowing, endplate changes, osteophytes and facet arthropathy. No discrete bony canal stenosis. Multilevel neural foramina narrowing. No obvious disc herniation. The endplates are maintained. Prevertebral soft tissues are normal. Surrounding soft tissues are unremarkable. The thyroid is again mildly enlarged and multinodular with calcination in the left lobe. Lung apices are clear. IMPRESSION: 1. The brain shows senescent changes without acute abnormality. No fracture. 2. No acute osseous or acute alignment abnormality of the cervical spine. Degenerative changes and osteopenia. 3. Continued mild enlarged multinodular thyroid. Report Dictated By: Dave Mckenna at 10/05/2017 6:33 PM Report E-Signed By: Dave Mckenna at 10/05/2017 6:43 PM [id number] Assessment and Plan Problems: (1) Syncope Status: Acute Assessment & Plan: Most likely secondary to dehydration secondary to diuretic use. Will give gentle IV fluids and hold diuretics. Will also monitor on telemetry for any dysrhythmias. (2) Dehydration Status: Acute Assessment & Plan: Due to diuretic use. Her Lasix was recently started for LE edema. Will stop this for now. Give gentle IV fluids. (3) Head injury Status: Acute Assessment & Plan: Secondary to fall. CT scan is negative. Watch closely. She has had previous intracranial hemorrhage in past. Will hold off on Lovenox for DVT prophylaxis due to this. Will use GENNARO hose/ambulate. (4) Type 2 diabetes mellitus Status: Chronic Assessment & Plan: Will continue her Lantus 30 units BID and SSI as needed. (5) HTN (hypertension) Status: Chronic Assessment & Plan: Continue her metoprolol. Watch BPs and resume her other medications if needed. (6) Diastolic heart failure Status: Chronic Assessment & Plan: She had an echocardiogram with her telephone claims representative earlier today. Results are not available as of yet. (7) Dementia Status: Chronic Assessment & Plan: Appears fairly mild. Her mental status is reported to be at her baseline. Monitor. (8) Intracranial hemorrhage Status: Resolved Assessment & Plan: Occurred after a fall in 2012. Will hold off on Lovenox for DVT prophylaxis. Copies to: ESEQUIEL WOOTEN PA-C Venous Thromboembolism Antithrombotics Is Pt On Any Antithrombotics?: No Prophylaxis Tx Contraindicated Pharmacological Contraindicati: Hemorrhagic CVA (in past) Heart Failure Ejection Fraction %: 62 RVSP (mmHg): 28 NYHA Class: I Is Patient on LORNA Inhibitor?: Yes Is Patient on Beta Agus?: Yes Admission Weight: 165 Exam Sepsis Risk: No Definite Risk KALYN MADISON MD Oct 05, 2017 21:19
[2017-10-05] MEDS: NS(*) 0.9% 1000 ML BAG 1,000 ML IV PRN (21:30)
[2017-10-05] MEDS: ACETAMINOPHEN 325 MG TAB PO PRN (21:31)
[2017-10-05 23:17] VITALS: BP 123/80
[2017-10-05] MEDS: INSULIN HUM LISPRO 100 UN/ML 3 ML VIAL SUBQ PRN (23:20)
[2017-10-06 05:36] VITALS: BP 124/65
[2017-10-06] MEDS: ACETAMINOPHEN 325 MG TAB PO PRN ×3 (05:39→20:20)
[2017-10-06] MEDS: NS(*) 0.9% 1000 ML BAG 1,000 ML IV PRN ×2 (05:40→21:41)
[2017-10-06 05:45] LABS: PLATELET COUNT, AUTOMATED 149 K/uL (150-450)
[2017-10-06 07:24] VITALS: BP 114/60
[2017-10-06] MEDS ORDERED: INS GLAR 100 UN/ML (ER ONLY) 100 UNIT/ML SUBQ SCH (09:00)
[2017-10-06] MEDS: PANTOPRAZOLE SOD 40 MG TABEC PO SCH (09:33)
[2017-10-06] MEDS: PRAVASTATIN SOD 20 MG TAB PO SCH (09:33)
[2017-10-06] MEDS: SERTRALINE HCL 50 MG TAB PO SCH (09:33)
[2017-10-06] MEDS: GABAPENTIN 300 MG CAP PO SCH ×3 (09:33→20:20)
[2017-10-06] MEDS: METOPROLOL TART 50 MG TAB PO SCH ×2 (09:34→20:20)
[2017-10-06] MEDS ORDERED: INSULIN GLARGINE 100 U/ML 3 ML PEN SUBQ ONE (09:40)
[2017-10-06 11:19] VITALS: BP 128/71
[2017-10-06] MEDS: INSULIN HUM LISPRO 100 UN/ML 3 ML VIAL SUBQ PRN ×3 (12:21→20:21)
--- NOTE | 2017-10-06 12:53 | Hospitalist Progress Note ---
Subjective Progress Notes Subjective The patient states she feels weak. Physical Exam Vital Signs Date Time Temp Pulse Resp B/P (MAP) Pulse Ox O2 Delivery O2 Flow Rate FiO2 10/06/17 11:19 98.0 62 18 128/71 (90) 92 Nasal Cannula 2.0 Intake and Output 10/07/17 07:00 # Voids 1 General Appearance: Alert, Awake Cardiovascular: Regular Rate and Rhythm Result Diagram: 10/06/17 0532 10/06/17 0532 Assessment and Plan Problems: (1) Syncope Status: Chronic Assessment & Plan: Most likely secondary to dehydration secondary to diuretic use. Will give gentle IV fluids and hold diuretics. Will also monitor on telemetry for any dysrhythmias. No dysrhythmias noted thus far. (2) Dehydration Status: Acute Assessment & Plan: Due to diuretic use. Her Lasix was recently started for LE edema. Will stop this for now. Give gentle IV fluids. (3) Acute kidney failure Status: Acute Assessment & Plan: Due to above. Creatinine is improving with IV fluids. (4) Head injury Status: Acute Assessment & Plan: Secondary to fall. CT scan is negative. Watch closely. She has had previous intracranial hemorrhage in past. Will hold off on Lovenox for DVT prophylaxis due to this. Will use GENNARO hose/ambulate. (5) Type 2 diabetes mellitus Status: Chronic Assessment & Plan: Will continue her Lantus 30 units BID and SSI as needed. (6) HTN (hypertension) Status: Chronic Assessment & Plan: Continue her metoprolol. Watch BPs and resume her other medications if needed. (7) Diastolic heart failure Status: Chronic Assessment & Plan: She had an echocardiogram with her salvage clerk earlier today. Results are not available as of yet. (8) Dementia Status: Chronic Assessment & Plan: Appears fairly mild. Her mental status is reported to be at her baseline. Monitor. (9) Intracranial hemorrhage Status: Resolved Assessment & Plan: Occurred after a fall in 2012. Will hold off on Lovenox for DVT prophylaxis. Time Spent on Plan of Care: < 30 min Heart Failure Ejection Fraction %: 62 RVSP (mmHg): 28 NYHA Class: I Is Patient on LORNA Inhibitor?: Yes Is Patient on Beta Agus?: Yes Admission Weight: 165 Exam Sepsis Risk: No Definite Risk OXANA MADISON MD Oct 06, 2017 12:52
[2017-10-06 13:03] VITALS: BMI 34.2
[2017-10-06 15:29] VITALS: BP 133/75
[2017-10-06] MEDS ORDERED: INSU200I SQ (16:52)
[2017-10-06] MEDS ORDERED: NITR-1 PO (16:52)
[2017-10-06] MEDS ORDERED: GABA-549 PO (16:52)
[2017-10-06 19:20] VITALS: BP 132/63
[2017-10-06] MEDS ORDERED: MAGNESIUM HYDROXIDE* 30ML UDCP PO PRN (20:30)
[2017-10-06] MEDS ORDERED: BISACODYL 10 MG SUPP PR PRN (20:30)
[2017-10-06] MEDS: POLYETHYLENE GLYCOL 17 GM PKT PO SCH (20:30)
[2017-10-06] MEDS ORDERED: INSULIN GLARGINE 100 U/ML 3 ML PEN SUBQ SCH (21:00)
[2017-10-06] MEDS: DOCUSATE SODIUM 100 MG CAP PO SCH (21:05)
[2017-10-06 23:08] VITALS: BP 153/70
[2017-10-07 03:51] VITALS: BP 154/108
[2017-10-07 06:07] LABS: PLATELET COUNT, AUTOMATED 144 K/uL (150-450)
[2017-10-07 07:36] VITALS: BP 135/65
[2017-10-07] MEDS: METOPROLOL TART 50 MG TAB PO SCH ×2 (08:54→20:51)
[2017-10-07] MEDS: GABAPENTIN 300 MG CAP PO SCH ×3 (08:54→20:51)
[2017-10-07] MEDS: SERTRALINE HCL 50 MG TAB PO SCH (08:54)
[2017-10-07] MEDS: PANTOPRAZOLE SOD 40 MG TABEC PO SCH (08:54)
[2017-10-07] MEDS: PRAVASTATIN SOD 20 MG TAB PO SCH (08:54)
[2017-10-07] MEDS: POLYETHYLENE GLYCOL 17 GM PKT PO SCH (08:54)
[2017-10-07] MEDS: ACETAMINOPHEN 325 MG TAB PO PRN ×2 (08:54→14:13)
[2017-10-07] MEDS: DOCUSATE SODIUM 100 MG CAP PO SCH ×2 (08:54→20:51)
[2017-10-07] MEDS ORDERED: INSULIN GLARGINE 100 U/ML 3 ML PEN SUBQ SCH (09:00)
[2017-10-07 11:34] VITALS: BP 141/76
--- NOTE | 2017-10-07 11:42 | Hospitalist Progress Note ---
Subjective Progress Notes Subjective She is moving in the room near baseline. She reports a continued head ache and neck pain. Glucose was 43 this morning and she was a little groggy. It was 83 about 1.5 hours later. She runs in the 200-300's at home. Physical Exam Vital Signs Date Time Temp Pulse Resp B/P (MAP) Pulse Ox O2 Delivery O2 Flow Rate FiO2 10/07/17 11:34 98.0 64 18 141/76 (97) 95 Nasal Cannula 1.5 Intake and Output 10/08/17 07:00 Intake Total 1533 ml Balance 1533 ml Intake Oral 240 ml IV Total 1293 ml # Voids 1 General Appearance: Alert, Awake, No Acute Distress Cardiovascular: Regular Rate and Rhythm Respiratory: Clear to Auscultation Result Diagram: 10/07/1752110/07/17521 Assessment and Plan Problems: (1) Syncope Status: Chronic Assessment & Plan: Most likely secondary to dehydration secondary to diuretic use. Cannot rule out hypoglycemia. Improving with hydration. Will saline lock. Continue telemetry for any dysrhythmias. No dysrhythmias noted thus far. (2) Dehydration Status: Acute Assessment & Plan: Due to diuretic use. Her Lasix was recently started for LE edema. Will stop this for now. Hydrated. Will saline lock and follow. (3) Acute kidney failure Status: Acute Assessment & Plan: Due to above. Creatinine is improving with IV fluids. (4) Type 2 diabetes mellitus Status: Chronic Assessment & Plan: She had a glucose of 43 this morning and she felt groggy. Will hold her Lantus 30 units BID and follow glucose. Will restart at a reduced dose when glucose stabilizes. SSI as needed, but only before meals. (5) Head injury Status: Acute Assessment & Plan: Secondary to fall. CT scan is negative. Watch closely. She has had previous intracranial hemorrhage in past. Will hold off on Lovenox for DVT prophylaxis due to this. Will use GENNARO hose/ambulate. (6) HTN (hypertension) Status: Chronic Assessment & Plan: Continue her metoprolol. Watch BPs and resume her other medications if needed. (7) Diastolic heart failure Status: Chronic Assessment & Plan: She had an echocardiogram with her sanitarian inspector the day of admission. It showed an EF of 59% and was relatively unchanged from previous. (8) Dementia Status: Chronic Assessment & Plan: Appears fairly mild. Her mental status is reported to be at her baseline. Monitor. (9) Intracranial hemorrhage Status: Resolved Assessment & Plan: Occurred after a fall in 2012. Will hold off on Lovenox for DVT prophylaxis. Heart Failure Ejection Fraction %: 62 RVSP (mmHg): 28 NYHA Class: I Is Patient on LORNA Inhibitor?: Yes Is Patient on Beta Agus?: Yes Admission Weight: 165 Exam Sepsis Risk: No Definite Risk VASU CURTIS MD Oct 07, 2017 11:42
[2017-10-07] MEDS: INSULIN HUM LISPRO 100 UN/ML 3 ML VIAL SUBQ PRN ×2 (11:46→16:47)
[2017-10-07] MEDS ORDERED: CYCLOBENZAPRINE HCL 10 MG TAB PO PRN (15:25)
[2017-10-07 15:42] VITALS: BP 168/79
[2017-10-07 19:11] VITALS: BP 155/66
[2017-10-07 23:28] VITALS: BP 185/86
[2017-10-08] MEDS: ACETAMINOPHEN 325 MG TAB PO PRN ×3 (01:10→20:03)
[2017-10-08] MEDS: EUCALYPTUS/MENTHOL LOZ MM PRN (01:11)
[2017-10-08 02:34] VITALS: BP 162/76
[2017-10-08 05:40] LABS: PLATELET COUNT, AUTOMATED 142 K/uL (150-450)
[2017-10-08 07:53] VITALS: BP 157/76
[2017-10-08] MEDS: INSULIN HUM LISPRO 100 UN/ML 3 ML VIAL SUBQ PRN ×3 (08:00→17:27)
[2017-10-08] MEDS ORDERED: ALB18R INH (08:30)
[2017-10-08] MEDS: DOCUSATE SODIUM 100 MG CAP PO SCH ×2 (08:58→21:19)
[2017-10-08] MEDS: PRAVASTATIN SOD 20 MG TAB PO SCH (08:58)
[2017-10-08] MEDS: METOPROLOL TART 50 MG TAB PO SCH ×2 (08:58→21:25)
[2017-10-08] MEDS: POLYETHYLENE GLYCOL 17 GM PKT PO SCH (08:58)
[2017-10-08] MEDS: SERTRALINE HCL 50 MG TAB PO SCH (08:58)
[2017-10-08] MEDS: GABAPENTIN 300 MG CAP PO SCH ×3 (08:58→21:25)
[2017-10-08] MEDS: PANTOPRAZOLE SOD 40 MG TABEC PO SCH (08:58)
[2017-10-08] MEDS ORDERED: INSULIN GLARGINE 100 U/ML 3 ML PEN SUBQ SCH (09:00)
--- NOTE | 2017-10-08 13:22 | Hospitalist Progress Note ---
Subjective Progress Notes Subjective She c/o pelvic discomfort and urinary incontinence. Otherwise she reports feeling improved. Physical Exam Vital Signs Date Time Temp Pulse Resp B/P (MAP) Pulse Ox O2 Delivery O2 Flow Rate FiO2 10/08/17 07:53 98.3 68 20 157/76 (103) 96 Nasal Cannula 1.5 Intake and Output 10/09/17 07:00 Intake Total 200 ml Balance 200 ml Intake Oral 200 ml General Appearance: Alert, Awake Cardiovascular: Regular Rate and Rhythm Respiratory: Clear to Auscultation Chest: No Tenderness GI: Other (Soft with reported tenderness over suprapubic region/no guarding/ rebound) Extremities: Warm, Perfused Result Diagram: 10/08/17 0530 10/08/17 0530 Assessment and Plan Problems: (1) Syncope Status: Chronic Assessment & Plan: Most likely secondary to dehydration secondary to diuretic use. Improved with hydration. Continue telemetry for any dysrhythmias - none noted thus far. (2) Dehydration Status: Acute Assessment & Plan: Due to diuretic use. Her Lasix was recently started for LE edema. We have stopped it for now. Will allow PCP to decide if necessary to resume. (3) Acute kidney failure Status: Acute Assessment & Plan: Due to above. Creatinine is improved (0.9 this AM) with IV fluids. (4) Type 2 diabetes mellitus Status: Chronic Assessment & Plan: She had a glucose of 43 yesterday AM and she felt groggy. We stopped her Lantus 30 units BID. We restarted at a reduced dose (20 units daily) this AM. Will use SSI as needed, but only before meals. (5) Head injury Status: Acute Assessment & Plan: Secondary to fall. CT scan is negative. Watch closely. She has had previous intracranial hemorrhage in past. Will hold off on Lovenox for DVT prophylaxis due to this. Will use GENNARO hose/ambulate. (6) HTN (hypertension) Status: Chronic Assessment & Plan: Continue her metoprolol. Watch BPs and resume her other medications if needed. (7) Diastolic heart failure Status: Chronic Assessment & Plan: She had an echocardiogram with her info specialist the day of admission. It showed an EF of 59% and was relatively unchanged from previous. (8) Dementia Status: Chronic Assessment & Plan: Appears fairly mild. Her mental status is reported to be at her baseline. Monitor. (9) Intracranial hemorrhage Status: Resolved Assessment & Plan: Occurred after a fall in 2012. Will hold off on Lovenox for DVT prophylaxis. (10) Urinary retention Status: Chronic Assessment & Plan: She has approximately 500ml post-void residual on bladder scan. Will place Núñez cath today. Will contact Dr. Vilchis who has seen Mrs. Rodriguez in the past and has performed several urologic procedures. Heart Failure Ejection Fraction %: 62 RVSP (mmHg): 28 NYHA Class: I Is Patient on LORNA Inhibitor?: Yes Is Patient on Beta Agus?: Yes Admission Weight: 165 Exam Sepsis Risk: No Definite Risk KALYN MADISON MD Oct 08, 2017 13:22
[2017-10-08 14:18] VITALS: BP 148/66
[2017-10-08 19:45] VITALS: BP 153/78
[2017-10-09 06:29] VITALS: BP 171/80
[2017-10-09 08:00] VITALS: BP 162/77
[2017-10-09] MEDS: INSULIN HUM LISPRO 100 UN/ML 3 ML VIAL SUBQ PRN ×4 (08:11→20:50)
[2017-10-09] MEDS ORDERED: ALBUTEROL 2.5 MG/3 ML NEB NEB PRN (08:45)
[2017-10-09] MEDS: DOCUSATE SODIUM 100 MG CAP PO SCH ×2 (09:15→20:49)
[2017-10-09] MEDS: METOPROLOL TART 50 MG TAB PO SCH ×2 (09:15→20:49)
[2017-10-09] MEDS: PANTOPRAZOLE SOD 40 MG TABEC PO SCH (09:16)
[2017-10-09] MEDS: GABAPENTIN 300 MG CAP PO SCH ×3 (09:16→20:49)
[2017-10-09] MEDS: PRAVASTATIN SOD 20 MG TAB PO SCH (09:16)
[2017-10-09] MEDS: SERTRALINE HCL 50 MG TAB PO SCH (09:17)
[2017-10-09] MEDS: INSULIN GLARGINE 100 U/ML 3 ML PEN SUBQ SCH ×2 (09:18→20:49)
[2017-10-09] MEDS: POLYETHYLENE GLYCOL 17 GM PKT PO SCH (09:18)
[2017-10-09] MEDS: amLODIPine BESYL(*) 5 MG TAB PO SCH (10:48)
[2017-10-09 12:09] VITALS: BP 157/84
--- NOTE | 2017-10-09 12:15 | Hospitalist Progress Note ---
Subjective Progress Notes Subjective The patient complains that her vision in her R eye remains blurry after falling and hitting her head. Physical Exam Vital Signs Date Time Temp Pulse Resp B/P (MAP) Pulse Ox O2 Delivery O2 Flow Rate FiO2 10/09/17 08:00 97.6 67 12 162/77 (105) 96 Nasal Cannula 1.0 Intake and Output 10/10/17 07:00 Intake Total 200 ml Balance 200 ml Intake Oral 200 ml # Bowel Movements 1 General Appearance: Alert, Awake, No Acute Distress Eyes: Other (Will perform fundoscopic exam after rounds.) Cardiovascular: Regular Rate and Rhythm Respiratory: Clear to Auscultation GI: Soft and Non-Tender Extremities: Perfused Psych: Appropriate Mood & Affect Result Diagram: 10/08/1752910/08/17529 Assessment and Plan Problems: (1) Syncope Status: Chronic Assessment & Plan: Most likely secondary to dehydration secondary to diuretic use. Improved with hydration. Continue telemetry for any dysrhythmias - none noted thus far. BP has improved with hydration. (2) Dehydration Status: Acute Assessment & Plan: Due to diuretic use. Her Lasix was recently started for LE edema. We have stopped it for now. Will allow PCP to decide if necessary to resume. (3) Acute kidney failure Status: Acute Assessment & Plan: Due to above. Creatinine is improved (0.9 this AM) with IV fluids. (4) Type 2 diabetes mellitus Status: Chronic Assessment & Plan: She had a glucose of 43 yesterday AM and she felt groggy. We stopped her Lantus 30 units BID. We restarted at a reduced dose (20 units daily) this AM, but BS were high. Will place on 15u bid. . Will use SSI as needed, but only before meals. (5) Head injury Status: Acute Assessment & Plan: Secondary to fall. CT scan is negative. Watch closely. She has had previous intracranial hemorrhage in past. Will hold off on Lovenox for DVT prophylaxis due to this. Will use GENNARO hose/ambulate. (6) HTN (hypertension) Status: Chronic Assessment & Plan: BP now high. Continue her metoprolol. Will add back amlodipine today. Watch BPs and resume her enalapril if needed. (7) Diastolic heart failure Status: Chronic Assessment & Plan: She had an echocardiogram with her milk collector the day of admission. It showed an EF of 59% and was relatively unchanged from previous. (8) Dementia Status: Chronic Assessment & Plan: Appears fairly mild. Her mental status is reported to be at her baseline. Monitor. (9) Intracranial hemorrhage Status: Resolved Assessment & Plan: Occurred after a fall in 2012. Will hold off on Lovenox for DVT prophylaxis. (10) Urinary retention Status: Chronic Assessment & Plan: She has approximately 500ml post-void residual on bladder scan. Núñez cath placed. Dr. Vilchis, who has seen Mrs. Rodriguez in the past and has performed several urologic procedures, has been consulted. Time Spent on Plan of Care: < 30 min Heart Failure Ejection Fraction %: 62 RVSP (mmHg): 28 NYHA Class: I Is Patient on LORNA Inhibitor?: Yes Is Patient on Beta Agus?: Yes Admission Weight: 165 Exam Sepsis Risk: No Definite Risk OXANA MADISON MD Oct 09, 2017 12:15
--- NOTE | 2017-10-09 14:40 | Miscellaneous Provider Note ---
Miscellaneous Provider Note Note The patient complains that her R eye is painful and her vision is blurred. Attempted to perform fundoscopic exam on patient. She was unable to hold her eyelids open and could not hold her eye still. When I could get a quick look it appeared her lens was cloudy and I could not see the retina at all. The patient states she had cataract surgery many years ago. She will need to see her eye doctor as an outpatient. OXANA MADISON MD Oct 09, 2017 14:40
[2017-10-09 15:46] VITALS: BP 167/70
[2017-10-09] MEDS: ACETAMINOPHEN 325 MG TAB PO PRN (18:02)
[2017-10-09 19:58] VITALS: BP 152/85
[2017-10-10 00:39] VITALS: BP 137/71
[2017-10-10 02:42] VITALS: BP 134/74
[2017-10-10 05:48] LABS: PLATELET COUNT, AUTOMATED 170 K/uL (150-450)
[2017-10-10 08:00] VITALS: BP 149/85
[2017-10-10] MEDS: SERTRALINE HCL 50 MG TAB PO SCH (09:45)
[2017-10-10] MEDS: POLYETHYLENE GLYCOL 17 GM PKT PO SCH (09:45)
[2017-10-10] MEDS: amLODIPine BESYL(*) 5 MG TAB PO SCH ×2 (09:45→10:23)
[2017-10-10] MEDS: DOCUSATE SODIUM 100 MG CAP PO SCH ×2 (09:45→20:43)
[2017-10-10] MEDS: PRAVASTATIN SOD 20 MG TAB PO SCH (09:45)
[2017-10-10] MEDS: INSULIN GLARGINE 100 U/ML 3 ML PEN SUBQ SCH ×2 (09:45→20:43)
[2017-10-10] MEDS: PANTOPRAZOLE SOD 40 MG TABEC PO SCH (09:45)
[2017-10-10] MEDS: GABAPENTIN 300 MG CAP PO SCH ×3 (09:45→20:43)
[2017-10-10 10:05] VITALS: Ht 160 cm; Wt 87.7 kg
--- NOTE | 2017-10-10 11:15 | Hospitalist Progress Note ---
Subjective Progress Notes Subjective This patient was admitted for syncope. She had no acute events overnight. Patient Complains of: Cardiovascular: No: Chest Pain Respiratory: No: Shortness of Breath Physical Exam Vital Signs Date Time Temp Pulse Resp B/P (MAP) Pulse Ox O2 Delivery O2 Flow Rate FiO2 10/10/17 02:42 98.0 65 18 134/74 (94) 99 Nasal Cannula 2.0 Cardiovascular: Regular Rate and Rhythm Respiratory: Clear to Auscultation Result Diagram: 10/10/1751610/10/17516 Assessment and Plan Problems: (1) Syncope Status: Chronic Assessment & Plan: Most likely secondary to dehydration from diuretic use. She has improved with IV fluids and stopping her Lasix. (2) Dehydration Status: Acute Assessment & Plan: Resolved with IV fluids. (3) Acute kidney failure Status: Acute Assessment & Plan: Resolved with IV fluids. (4) Type 2 diabetes mellitus Status: Chronic Assessment & Plan: She is on chronic treatment with Lantus, but we did decrease her dose secondary to hypoglycemia. She is on coverage with sliding scale level #2. (5) Head injury Status: Acute Assessment & Plan: A CT of the head was negative for acute injury. (6) HTN (hypertension) Status: Chronic Assessment & Plan: She has been on chronic treatment with metoprolol, amlodipine, and enalapril. We have restarted the metoprolol and amlodipine, but the enalapril remains on hold. (7) Diastolic heart failure Status: Chronic Assessment & Plan: She had an echocardiogram with her tow feeder the day of admission. It showed an EF of 59% and was relatively unchanged from previous. Her daily weights have been stable. (8) Dementia Status: Chronic Assessment & Plan: Appears fairly mild. Her mental status is reported to be at her baseline. Monitor. (9) Intracranial hemorrhage Status: Resolved Assessment & Plan: Occurred after a fall in 2012. Will hold off on Lovenox for DVT prophylaxis. (10) Urinary retention Status: Chronic Assessment & Plan: Dr. Vilchis has been following this. Heart Failure Ejection Fraction %: 62 RVSP (mmHg): 28 NYHA Class: I Is Patient on LORNA Inhibitor?: Yes Is Patient on Beta Agus?: Yes Admission Weight: 165 Exam Sepsis Risk: No Definite Risk KAMRAN SANDERS DO Oct 10, 2017 11:15
[2017-10-10] MEDS: INSULIN HUM LISPRO 100 UN/ML 3 ML VIAL SUBQ PRN ×2 (12:22→17:07)
[2017-10-10] MEDS: METOPROLOL TART 50 MG TAB PO SCH ×2 (12:38→20:43)
[2017-10-10] MEDS ORDERED: TAMSULOSIN HCL 0.4 MG CAP PO SCH (15:00)
--- NOTE | 2017-10-10 16:32 | CONSULTATION ---
EVENT DATE: October 10, 2017 ATTENDING PHYSICIAN Jessie Keyes MD CONSULTING PHYSICIAN Meet Vilchis MD REASON FOR CONSULTATION This is a 77-year-old [place] female whom I was asked to see for urinary retention. Catheterization drained 500 mL. Patient states she gets up to void five to seven times at night and leaks all the way to the bathroom. Patient states also during the daytime whenever she needs to urinate, she is urinating every 30 minutes to an hour. Patient goes through approximately six to eight pads per day. Patient has a problem with recurrent urinary tract infections and yeast infections especially over the past year. Patient is status post severe cerebrovascular accident approximately five years ago and had the onset of issues with urinary incontinence since that time. Patient was found to have a creatinine of 1.6 which readily resolved itself to 0.9 after rehydration. IMPRESSION 1. Dehydration. 2. Probable flow urinary incontinence. 3. Probable neurogenic bladder secondary to cerebral vascular accident approximately five years ago. PLAN Urine for culture and sensitivity. Patient will probably need cystoscopy and cystometrics to evaluate her lower urinary tract. Thank you for letting me share in the care of your patient. REYES
[2017-10-10 18:08] VITALS: BP 136/76
[2017-10-10] MEDS: ACETAMINOPHEN 325 MG TAB PO PRN (18:40)
[2017-10-10] MEDS: CIPROFLOXACIN 500 MG TAB PO SCH (20:43)
[2017-10-10] MEDS: EUCALYPTUS/MENTHOL LOZ MM PRN (20:44)
[2017-10-11] MEDS: ACETAMINOPHEN 325 MG TAB PO PRN (03:09)
[2017-10-11 03:35] VITALS: BP 139/70
[2017-10-11 07:45] VITALS: BP 125/60
[2017-10-11] MEDS: DOCUSATE SODIUM 100 MG CAP PO SCH (08:04)
[2017-10-11] MEDS: METOPROLOL TART 50 MG TAB PO SCH (08:04)
[2017-10-11] MEDS: GABAPENTIN 300 MG CAP PO SCH ×2 (08:04→13:37)
[2017-10-11] MEDS: PRAVASTATIN SOD 20 MG TAB PO SCH (08:05)
[2017-10-11] MEDS: PANTOPRAZOLE SOD 40 MG TABEC PO SCH (08:05)
[2017-10-11] MEDS: SERTRALINE HCL 50 MG TAB PO SCH (08:05)
[2017-10-11] MEDS: POLYETHYLENE GLYCOL 17 GM PKT PO SCH (08:06)
[2017-10-11] MEDS: INSULIN GLARGINE 100 U/ML 3 ML PEN SUBQ SCH (08:06)
[2017-10-11] MEDS ORDERED: TAMSULOSIN HCL 0.4 MG CAP PO SCH (09:00)
[2017-10-11] MEDS ORDERED: amLODIPine BESYL(*) 5 MG TAB PO SCH (09:00)
[2017-10-11] MEDS: CIPROFLOXACIN 500 MG TAB PO SCH (09:27)
[2017-10-11] MEDS ORDERED: INFLUENZA VIRUS VAC 0.5 ML SYR IM ONLY ONE (09:43)
[2017-10-11] MEDS: INSULIN HUM LISPRO 100 UN/ML 3 ML VIAL SUBQ PRN (12:22)
[2017-10-11] MEDS ORDERED: GABA-549 PO (12:52)
[2017-10-11] MEDS ORDERED: INSU100I30 SUBQ (12:52)
[2017-10-11] MEDS ORDERED: TAMS0.4C70 PO (12:52)
--- NOTE | 2017-10-11 13:08 | Hospitalist Depart ---
Discharge Summary Reason for Hosp/Final Diag: (1) Syncope Status: Chronic Hospital Course & Plan: Most likely secondary to dehydration from diuretic use. She has improved with IV fluids and stopping her Lasix. (2) Type 2 diabetes mellitus Status: Chronic Hospital Course & Plan: She is on chronic treatment with Lantus, but we did decrease her dose secondary to hypoglycemia. Now she is on 15 units bid. Her HgA1c is 10, so suspect dietary non-compliance and potentially medication non- compliance. She is in more danger of hypoglycemia causing morbidity then the hyperglycemia, but will defer to her PCP about changes in the regimen. (3) Dehydration Status: Resolved Hospital Course & Plan: Resolved with IV fluids. (4) Acute kidney failure Status: Resolved Hospital Course & Plan: Resolved with IV fluids. (5) Head injury Status: Acute Hospital Course & Plan: A CT of the head was negative for acute injury. She still has a mild headache, but no worrisome signs or symptoms. (6) HTN (hypertension) Status: Chronic Hospital Course & Plan: She has been on chronic treatment with metoprolol, amlodipine, and enalapril. We have restarted the metoprolol and amlodipine, but the enalapril remains on hold. BP is stable. She will follow up with her PCP to revaluate need for it. (7) Diastolic heart failure Status: Chronic Hospital Course & Plan: She had an echocardiogram with her tong hooker the day of admission. It showed an EF of 59% and was relatively unchanged from previous. Her daily weights have been stable. (8) Dementia Status: Chronic Hospital Course & Plan: Appears fairly mild. Her mental status is reported to be at her baseline. Monitor. (9) Intracranial hemorrhage Status: Resolved Hospital Course & Plan: Occurred after a fall in 2012. She never received Lovenox for DVT prophylaxis. (10) Urinary retention Status: Chronic Hospital Course & Plan: Dr. Pan has been following this. Departure Weight (Pounds): 193 Weight (Ounces): 6.0 Result Diagram: 10/10/17 0517 10/10/17 0517 Item Value Date Time White Blood Count 7.1 k/uL 10/05/17 1750 White Blood Count 6.7 k/uL 10/06/17 0532 White Blood Count 7.7 k/uL 10/07/17 0522 White Blood Count 10.2 k/uL 10/08/17 0530 White Blood Count 7.2 k/uL 10/10/17 0517 Hemoglobin 11.6 g/dL L 10/10/17 0517 Hemoglobin 11.0 g/dL L 10/08/17 0530 Hemoglobin 10.7 g/dL L 10/07/17 0522 Hemoglobin 11.4 g/dL L 10/06/17 0532 Hemoglobin 12.3 g/dL 10/05/17 1750 Platelet Count 166 K/uL 10/05/17 1750 Platelet Count 149 K/uL L 10/06/17 0532 Platelet Count 144 K/uL L 10/07/17 0522 Platelet Count 142 K/uL L 10/08/17 0530 Platelet Count 170 K/uL 10/10/17 0517 Prothromb Time International Ratio 1.12 10/05/17 1750 Troponin I < 0.012 ng/ml 10/05/17 1750 Total Bilirubin 0.4 mg/dl 10/05/17 1750 Aspartate Amino Transf (AST/SGOT) 30 U/L 10/05/17 1750 Alanine Aminotransferase (ALT/SGPT) 33 U/L 10/05/17 1750 Alkaline Phosphatase 103 U/L 10/05/17 1750 Lipase 40 U/L 10/05/17 1750 Blood Urea Nitrogen 37 mg/dl H 10/05/17 1750 Creatinine 1.60 mg/dl H 10/05/17 1750 Sodium Level 136 mmol/L L 10/05/17 1750 Potassium Level 4.9 mmol/L 10/05/17 1750 Random Glucose 247 mg/dl H 10/05/17 1750 B-Type Natriuretic Peptide 458 pg/ml H 10/05/17 1750 Troponin I < 0.012 ng/ml 10/06/17 0532 Thyroid Stimulating Hormone (TSH) 0.62 uIU/ml 10/06/17 0532 Blood Urea Nitrogen 33 mg/dl H 10/06/17 0532 Creatinine 1.30 mg/dl H 10/06/17 0532 Sodium Level 137 mmol/L 10/06/17 0532 Potassium Level 4.9 mmol/L 10/06/17 0532 Chloride Level 106 mmol/L 10/06/17 0532 Carbon Dioxide Level 23 mmol/L 10/06/17 0532 Random Glucose 43 mg/dl *L 10/07/17521 Creatinine 1.00 mg/dl 10/07/17 0522 Blood Urea Nitrogen 27 mg/dl H 10/07/17 0522 Carbon Dioxide Level 24 mmol/L 10/07/17 0522 Chloride Level 109 mmol/L H 10/07/17 0522 Potassium Level 4.5 mmol/L 10/07/17 0522 Sodium Level 141 mmol/L 10/07/17 0522 Hemoglobin A1c 10.0 % H 10/07/17 0522 Sodium Level 137 mmol/L 10/08/17 0530 Potassium Level 4.5 mmol/L 10/08/17 0530 Chloride Level 106 mmol/L 10/08/17 0530 Carbon Dioxide Level 24 mmol/L 10/08/17 0530 Blood Urea Nitrogen 17 mg/dl 10/08/17 0530 Creatinine 0.90 mg/dl 10/08/17 05 Glomerular Filtration Rate Calc > 60.0 10/08/17 05 Random Glucose 175 mg/dl H 10/08/17 0530 Sodium Level 138 mmol/L 10/10/17 0517 Potassium Level 4.3 mmol/L 10/10/17 0517 Chloride Level 105 mmol/L 10/10/17 0517 Carbon Dioxide Level 27 mmol/L 10/10/17 0517 Blood Urea Nitrogen 18 mg/dl 10/10/17 0517 Creatinine 0.80 mg/dl 10/10/17516 SPEC #: [id number] THANG: 10/09/17 STATUS: COMP REQ #: [id number] RECD: 10/09/[address]: MIKE PAN MD SOURCE: [facility] ENTR: 10/09/[address] [facility] [address]: ESEQUIEL WOOTEN PA-C SPDESC: KALYN MADISON MD ORDERED: CULT URINE COMMENTS: Has specimen been collected/obtained? Y Procedure Result Verified URINE CULTURE Final 10/11/17-917 NO GROWTH AFTER 2 DAYS Imaging 10/05/[address] - 1. The brain shows senescent changes without acute abnormality. No fracture. 2. No acute osseous or acute alignment abnormality of the cervical spine. Degenerative changes and osteopenia. 3. Continued mild enlarged multinodular thyroid. 10/05/[address] - 1. The brain shows senescent changes without acute abnormality. No fracture. 2. No acute osseous or acute alignment abnormality of the cervical spine. Degenerative changes and osteopenia. 3. Continued mild enlarged multinodular thyroid. EKG Vent. Rate : 063 BPM Atrial Rate : 063 BPM P-R Int : 182 ms QRS Dur : 086 ms QT Int : 448 ms P-R-T Axes : 071 -12 060 degrees QTc Int : 458 ms Sinus rhythm Left axis No acute appearing findings Confirmed by KALYN MADISON ([id number]) on 10/05/2017 8:19:20 PM Referred By: SHILOH Confirmed By:KALYN MADISON Condition: Improved Discharge: Home Health PT/OT Follow Up For: PT For Strengthening Home Health RN Follow Up For: Nursing Assessment Home Health TERRITORY SERVICE REPRESENTATIVE Follow Up For: ADL Assistance Discharge Instructions Home Meds Active Scripts Gabapentin (GABAPENTIN) 300 Mg Capsule, 300 MG PO TID for 30 Days, CAPSULE Prov:VASU CURTIS MD 10/11/17 Tamsulosin Hcl (TAMSULOSIN HCL) 0.4 Mg Cap.er.24h, 0.4 MG PO QDAY for 30 Days, Prov:VASU CURTIS MD 10/11/17 Insulin Glargine,Hum.rec.anlog (LANTUS SOLOSTAR) 100 Unit/1 Ml Insuln.pen, 15 UNIT SUBQ BID for 30 Days, Prov:VASU CURTIS MD 10/11/17 Reported Medications Albuterol Sulfate (VENTOLIN HFA) 18 Gm Inh, 1-2 PUFF INH Q4-6H Y for SHORTNESS OF BREATH, INH 10/08/17 Insulin Lispro (Humalog Kwikpen) 200 Unit/1 Ml Insuln.pen, 18 UNITS SQ TID 10/06/17 Oxygen (OXYGEN) Inha, 0 INH, L 06/21/15 Nitroglycerin (NITROSTAT) 0.4 Mg Subl, 0.4 MG SL PRN, TAB 06/21/15 Aspirin (ASPIR 81) 81 Mg Tablet.dr, 81 MG PO QDAY, TAB 06/21/15 Pravastatin Sodium (PRAVASTATIN SODIUM) 20 Mg Tablet, 20 MG PO HS, TAB 06/21/15 Pantoprazole Sodium (PANTOPRAZOLE SODIUM) 40 Mg Tablet.dr, 40 MG PO QDAY, TAB.SR 06/21/15 Metoprolol Tartrate (METOPROLOL TARTRATE) 100 Mg Tablet, 50 MG PO BID, TAB 06/21/15 Amlodipine Besylate (AMLODIPINE BESYLATE) 10 Mg Tablet, 1 TAB PO QDAY, TAB 06/21/15 Discontinued Reported Medications Nitrofurantoin Macrocrystal (NITROFURANTOIN) 100 Mg Capsule, 100 MG PO BID, CAPSULE 10/06/17 Gabapentin (GABAPENTIN) 300 Mg Capsule, 300 MG PO NOON, CAPSULE 10/06/17 Furosemide (LASIX) 20 Mg Tablet, 1 TAB PO DAILY, TAB 10/05/17 Insulin Glargine (LANTUS) 100 Unit/Ml Soln, 30 UNIT SUBQ BID, UNITS 06/21/15 Gabapentin (GABAPENTIN) 300 Mg Capsule, 600 MG PO BID, CAPSULE 06/21/15 Potassium Chloride (POTASSIUM CHLORIDE) 10 Meq Capsule.er, 10 MEQ PO DAILY, CAP 06/21/15 Enalapril Maleate (ENALAPRIL MALEATE) 20 Mg Tablet, 20 MG PO BID, TAB 06/21/15 Sertraline Hcl (SERTRALINE HCL) 50 Mg Tablet, 1 TAB PO QDAY, TAB 01/25/17 Insulin Aspart (NOVOLOG) 100 Unit/Ml Soln, 14 UNIT SUBQ TID, UNITS 06/21/15 Discontinued Scripts Albuterol Sul Hfa 90 Mcg 8 Gm (VENTOLIN HFA 90 MCG 8 GM) 8.5 Gm Hfa.aer.ad, 2 PUFF IH Q4-6H, #1 Prov:DINORAH BLANCO DO 11/21/14 Diet: Diabetic, Fluid Restricted, No Added Salt (ANUP) Activity: As Tolerated Special Instructions: Follow up with PCP in 1-2 weeks. Go to ER for glucose <60 or >400. Call your PCP for glucose consistently <80 or >300. Don't drink more than 2 quarts daily of all fluid. Weigh yourself daily. Call your PCP for an increase of 5 pounds from baseline Copies to: ESEQUIEL WOOTEN PA-C Venous Thromboembolism Antithrombotics Is Pt On Any Antithrombotics?: No Heart Failure Ejection Fraction %: 62 RVSP (mmHg): 28 NYHA Class: I Is Patient on LORNA Inhibitor?: Yes Is Patient on Beta Agus?: Yes Admission Weight: 165 [id number] Certification Face to Face Home Health Certification Institutional Provider conducted the [id number] encounter. Electronic Undersigning Physician Certifies Home Health. I certify that the patient has been under my care and that I had a [id number] encounter that meets the physician [id number] encounter requirements with this patient. This patient is home-bound due to safety issues and continues to require assistance with ADL's. I certify that based on my findings, that Nursing, Aides and the following Home Health services are medically necessary: Medical Necessity: Nursing, Rehab Date Face to Face Conducted: Oct 11, 2017 VASU CURTIS MD Oct 11, 2017 13:08
[2017-10-11] MEDS ORDERED: SULF-198 PO (13:38)
== END 2017-10-11 14:05 | disposition home health service (06) | DRG 683 ==
LOC: ER 17:32 → MED 19:55 → INTOOBSV 19:55 → OBSVTOIN 10-08
PROVIDERS: ADMIT Internal Medicine; ATTEND Internal Medicine
DX: N17.9 Acute kidney failure, unspecified (principal); I50.32 Chronic diastolic (congestive) heart failure; E86.0 Dehydration; T50.2X5A Adverse effect of carbonic-anhydrase inhibitors, benzothiadiazides and other diuretics, initial encounter; E11.649 Type 2 diabetes mellitus with hypoglycemia without coma; S09.90XA Unspecified injury of head, initial encounter; I11.0 Hypertensive heart disease with heart failure; F03.90 Unspecified dementia, unspecified severity, without behavioral disturbance, psychotic disturbance, mood disturbance, and anxiety; R33.9 Retention of urine, unspecified; S00.83XA Contusion of other part of head, initial encounter; H40.9 Unspecified glaucoma; E11.42 Type 2 diabetes mellitus with diabetic polyneuropathy; I25.2 Old myocardial infarction; I25.10 Atherosclerotic heart disease of native coronary artery without angina pectoris; J44.9 Chronic obstructive pulmonary disease, unspecified; R55 Syncope and collapse; E11.65 Type 2 diabetes mellitus with hyperglycemia; M79.7 Fibromyalgia; F41.8 Other specified anxiety disorders; Z23 Encounter for immunization; N39.490 Overflow incontinence; I67.9 Cerebrovascular disease, unspecified; I69.398 Other sequelae of cerebral infarction; H53.8 Other visual disturbances; N31.9 Neuromuscular dysfunction of bladder, unspecified; W18.00XA Striking against unspecified object with subsequent fall, initial encounter; Y93.89 Activity, other specified; Y92.512 Supermarket, store or market as the place of occurrence of the external cause; Y99.8 Other external cause status; Z86.718 Personal history of other venous thrombosis and embolism; Z90.49 Acquired absence of other specified parts of digestive tract; Z79.4 Long term (current) use of insulin; Z88.5 Allergy status to narcotic agent; Z88.8 Allergy status to other drugs, medicaments and biological substances; Z95.1 Presence of aortocoronary bypass graft; Z79.01 Long term (current) use of anticoagulants; Z87.891 Personal history of nicotine dependence; Z99.81 Dependence on supplemental oxygen; Z91.14 Patient's other noncompliance with medication regimen; Z91.11 Patient's noncompliance with dietary regimen; Z90.710 Acquired absence of both cervix and uterus
CPT/HCPCS: 36415; 36416; 70450; 72125; 81001; 82040; 82247; 82310; 82374; 82435; 82565; 82947; 82948; 83036; 83690; 83880; 84075; 84132; 84155; 84295; 84443; 84450; 84460; 84484; 84520; 85025; 85610; 85730; 87088; 90471; 90674; 93005; 93306; 94640; 96361; 96372; 96374; 96375; 97161; 97165; 99284; G0378; J1815; J2405; J3010; J7030; J7613

== ENCOUNTER → 2017-10-05 | Outpatient (CLI) | payer MEDICARE ==
[2014-06-05 15:19] VITALS: BMI 27.3
[~2017-10-05] MED LIST changes: +ALB18R INH; +FURO20TA19 PO; +INSU200I SQ; +NITR-1 PO
--- NOTE | 2017-10-07 20:07 | RADIOLOGY IMAGING REPORT ---
FACILITY: [facility] [place] PATIENT NAME: FAHAD MORENO : [id number] MR: [id number] V: [id number] EXAM DATE: ORDERING PHYSICIAN: ESEQUIEL WOOTEN TECHNOLOGIST: Ale De Leon EXAMINATION:TWO-DIMENSIONAL ECHOCARDIOGRAPH REASON:CONGESTIVE HEART FAILURE AND SHORTNESS OF BREATH. 2D Measurements (normal values in centimeters) LV endLV endRV endVent.LV PostAorticLeftPercent DiastolicSystolicDiastolicSeptumWallRootAtriumShortening (3.5-5.7)(0.9-2.6)(0.6-1.1)(0.6-1.1)(2.0-3.7)(1.9-4.0)(25-35%) [id number]% STROKE VOLUME: 60 mL ESTIMATED EJECTION FRACTION:59% PARASTERNAL LONG AXIS: Overall left ventricular systolic function does appear to be normal. No specific wall motion abnormalities are noted. The aortic valve and mitral valve both appear to open normally. Color examination of the valves reveals a trace of mitral and tricuspid insufficiency present. PARASTERNAL SHORT AXIS: Overall left ventricular function again appears to be normal and chamber sizes appear to be normal. Aortic valve is trileaflet in configuration and appears to open normally with mild aortic sclerosis but no stenosis. Color examination of the pulmonic valve reveals a trace of pulmonic insufficiency present. APICAL FOUR AND TWO CHAMBER: Normal left ventricular ejection fraction and normal chamber sizes. Aortic valve area and mitral valve area both measure within normal ranges at 2.2 and 2.9 cm2 respectively. Left atrial volume is mildly increased in size. It is 35 mL/m2. Right atrial volume is measured within normal range at 23 mL/m2. Trace of mitral and tricuspid insufficiency is noted. The tricuspid regurgitation V-max is measured at 2.85 m/sec. SUBCOSTAL VIEW: Difficult to obtain but no pericardial effusion was noted. No atrial septal or ventricular septal defects were detected but the view was technically difficult. The TAPSE is measured within normal range at 2.3%. Doppler examination of the mitral valve in diastole does reveal a normal pattern but there is reversal with Valsalva suggesting moderate decrease in diastolic function. IVC is normal in size. OVERALL IMPRESSION: 1. Normal left ventricular ejection fraction of 59% with a grade 2( moderate) decrease in diastolic function. 2. Chamber sizes are normal except the left atrial volume which is mildly increased at 35 mL/m2. 3. A trileaflet aortic valve with mild aortic sclerosis and no other abnormalities are noted. 4. A trace of mitral, tricuspid and pulmonic insufficiency with estimated right ventricular systolic pressures at the upper range of normal at 35 mmHg. 5. In comparison to the last examination done on 12/17/2011 diastolic function has decreased, otherwise, no changes. Dictated by: Elisabet Rangel M.D. on 10/05/2017 at 20:41 Transcribed by: MAITE on 10/07/2017 at 9:42 Approved by: Elisabet Rangel M.D. on 10/07/2017 at 20:06 [facility]
== END ==
LOC: US 04:27
PROVIDERS: ATTEND Physician Assistant
DX: I70.0 Atherosclerosis of aorta (principal); I34.0 Nonrheumatic mitral (valve) insufficiency; I07.1 Rheumatic tricuspid insufficiency; I37.1 Nonrheumatic pulmonary valve insufficiency; I51.7 Cardiomegaly
CPT/HCPCS: 93306

== ENCOUNTER → 2017-10-05 | Outpatient (CLI) | payer MEDICARE ==
[~2017-10-05] MED LIST changes: +INSU100I30 SUBQ; +TAMS0.4C70 PO
[2017-10-10 10:05] VITALS: BMI 34.2
== END ==
LOC: AMB 17:02
PROVIDERS: ATTEND Nurse Practitioner
DX: S00.83XA Contusion of other part of head, initial encounter (principal); M54.2 Cervicalgia; R51 Headache; W18.39XA Other fall on same level, initial encounter
CPT/HCPCS: A0425; A0427

== ENCOUNTER 2017-10-24 12:56 | Emergency (ER) | payer MEDICARE ==
[2017-10-10 10:05] VITALS: Ht 160 cm; Wt 87.7 kg
[~2017-10-24] VITALS: Ht 160 cm; Wt 87.7 kg
--- NOTE | 2017-10-24 13:06 | ER Report ---
History and Physical Time Seen By MD: 13:04 HPI/ROS CHIEF COMPLAINT: Abdominal pain and dark stool chest pain shortness of breath and dizziness HISTORY OF PRESENT ILLNESS: 77-year-old female comes in via EMS she said less today she's noticed some darkened stools and some bloody stool condition she's had vague nonspecific nonlocalized abdominal pain also describing some shortness of breath and she had intermittent bout of chest discomfort which is subsequently resolved. Patient describes her abdominal pain is dull aching cramping in all 4 quadrants. Patient denies any urinary concerns or issues. Patient states she is not actively short of breath just doesn't feel right. Patient reportedly has a stroke history. REVIEW OF SYSTEMS: Respiratory: No cough, no dyspnea. Cardiovascular: No chest pain, no palpitations. Gastrointestinal: Nonspecific nonlocalized abdominal pain Musculoskeletal: No back pain. Remainder of the 14 system rev: Yes Allergies: Coded Allergies: morphine (Verified Allergy, Unknown, HIVES, 10/24/17) codeine (Verified Adverse Reaction, Unknown, NAUSEA/VOMITING, 10/24/17) Home Meds Active Scripts Gabapentin (GABAPENTIN) 300 Mg Capsule, 300 MG PO TID for 30 Days, CAPSULE Prov:VASU CURTIS MD 10/11/17 Tamsulosin Hcl (TAMSULOSIN HCL) 0.4 Mg Cap.er.24h, 0.4 MG PO QDAY for 30 Days, Prov:VASU CURTIS MD 10/11/17 Insulin Glargine,Hum.rec.anlog (LANTUS SOLOSTAR) 100 Unit/1 Ml Insuln.pen, 15 UNIT SUBQ BID for 30 Days, Prov:VASU CURTIS MD 10/11/17 Reported Medications Sulfamethoxazole/Trimet 800-160 Mg Tab (BACTRIM DS TABLET) 1 Each Tablet, 1 TAB PO Q12H, #15 TAB 10/11/17 Insulin Lispro (Humalog Kwikpen) 200 Unit/1 Ml Insuln.pen, 18 UNITS SQ TID 10/06/17 Oxygen (OXYGEN) Inha, 0 INH, L 06/21/15 Nitroglycerin (NITROSTAT) 0.4 Mg Subl, 0.4 MG SL PRN, TAB 06/21/15 Aspirin (ASPIR 81) 81 Mg Tablet.dr, 81 MG PO QDAY, TAB 06/21/15 Pravastatin Sodium (PRAVASTATIN SODIUM) 20 Mg Tablet, 20 MG PO HS, TAB 06/21/15 Pantoprazole Sodium (PANTOPRAZOLE SODIUM) 40 Mg Tablet.dr, 40 MG PO QDAY, TAB.SR 06/21/15 Metoprolol Tartrate (METOPROLOL TARTRATE) 100 Mg Tablet, 50 MG PO BID, TAB 06/21/15 Amlodipine Besylate (AMLODIPINE BESYLATE) 10 Mg Tablet, 1 TAB PO QDAY, TAB 06/21/15 Discontinued Reported Medications Albuterol Sulfate (VENTOLIN HFA) 18 Gm Inh, 1-2 PUFF INH Q4-6H Y for SHORTNESS OF BREATH, INH 10/08/17 Reviewed Nurses Notes: Yes Old Medical Records Reviewed: Yes Hx Smoking: No Smoking Status: Former Smoker Exposure to Second Hand Smoke?: Yes Hx Substance Use Disorder: No Hx Alcohol Use: Yes (none currently) Constitutional Vital Sign - Last 24 Hours 10/24/17 10/24/17 10/24/17 10/24/17 13:02 13:04 13:04 13:08 Temp 97.9 Pulse 60 Resp 14 B/P (MAP) 143/78 (99) 145/84 145/84 (104) Pulse Ox 90 O2 Delivery Nasal Cannula O2 Flow Rate 2.0 10/24/17 10/24/17 10/24/17 10/24/17 13:11 13:26 13:30 13:41 Pulse 57 60 60 Resp 13 8 12 B/P (MAP) 151/78 (102) Pulse Ox 99 99 99 10/24/17 10/24/17 10/24/17 10/24/17 13:56 14:00 14:11 14:34 Pulse 61 57 Resp 10 B/P (MAP) 136/80 (98) 143/72 (95) Pulse Ox 99 10/24/17 10/24/17 10/24/17 10/24/17 14:41 14:46 15:00 15:16 Pulse 56 55 56 Resp 12 15 14 B/P (MAP) 147/66 (93) Pulse Ox 99 99 100 10/24/17 10/24/17 15:30 15:31 Pulse 56 Resp 11 B/P (MAP) 140/90 (107) Pulse Ox 100 Physical Exam General Appearance: The patient is alert, has no immediate need for airway protection and no current signs of toxicity. [ ] Eyes: Pupils equal and round no injection. Respiratory: Chest is non tender, lungs are clear to auscultation. Cardiac: regular rate and rhythm [ ] Gastrointestinal: Abdomen is cut some mild tenderness to deep palpation primarily in the left lower quadrant no rebound guarding or masses rectal exam deferred Musculoskeletal: Neck: Neck is supple and non tender. Extremities have full range of motion and are non tender. Skin: No rashes or lesions. Neurological exam GCS of 15 alert and oriented 4 no focal neurological deficits noted DIFFERENTIAL DIAGNOSIS: After history and physical exam differential diagnosis was considered for enteritis gastroenteritis small bowel obstruction GI bleed cardiac abnormality Medical Decision Making Data Points Result Diagram: 10/24/17 1250 10/24/17 1250 Laboratory Hematology Test 10/24/17 12:50 10/24/17 16:45 Red Blood Count 4.60 M/uL (4.17-5.56) Mean Corpuscular Volume 82.8 fL (80.0-96.0) Mean Corpuscular Hemoglobin 27.0 pg (26.0-33.0) Mean Corpuscular Hemoglobin Concent 32.6 g/dL (32.0-36.0) Red Cell Distribution Width 14.3 % (11.5-14.5) Mean Platelet Volume 9.0 fL (7.2-11.1) Neutrophils (%) (Auto) 55.9 % (39.4-72.5) Lymphocytes (%) (Auto) 31.3 % (17.6-49.6) Monocytes (%) (Auto) 7.9 % (4.1-12.4) Eosinophils (%) (Auto) 3.9 % (0.4-6.7) Basophils (%) (Auto) 1.0 % (0.3-1.4) Nucleated RBC Relative Count (auto) 0.1 /100WBC Neutrophils # (Auto) 3.5 K/uL (2.0-7.4) Lymphocytes # (Auto) 2.0 K/uL (1.3-3.6) Monocytes # (Auto) 0.5 K/uL (0.3-1.0) Eosinophils # (Auto) 0.2 K/uL (0.0-0.5) Basophils # (Auto) 0.1 K/uL (0.0-0.1) Nucleated RBC Absolute Count (auto) 0.00 K/uL Peripheral Blood Smear No Y/N Prothrombin Time 14.4 seconds (12.0-14.4) Prothromb Time International Ratio 1.12 Activated Partial Thromboplast Time 30 seconds (23-35) D-Dimer Quantitative (PE/DVT) 0.71 ug/ml (0-0.50) Sodium Level 139 mmol/L (137-145) Potassium Level 4.3 mmol/L (3.5-5.0) Chloride Level 103 mmol/L (98-107) Carbon Dioxide Level 26 mmol/L (22-31) Blood Urea Nitrogen 18 mg/dl (7-18) Creatinine 0.80 mg/dl (0.52-1.04) Glomerular Filtration Rate Calc > 60.0 Random Glucose 202 mg/dl (75-110) Calcium Level 9.1 mg/dl (8.4-10.2) Total Bilirubin 0.6 mg/dl (0.2-1.3) Aspartate Amino Transf (AST/SGOT) 35 U/L (0-35) Alanine Aminotransferase (ALT/SGPT) 45 U/L (0-56) Alkaline Phosphatase 135 U/L (0-126) Troponin I < 0.012 ng/ml Total Protein 7.6 gm/dl (6.3-8.2) Albumin 3.6 g/dl (3.5-5.0) Urine Color Yellow Urine Clarity Clear Urine pH 7.0 pH (4.8-9.5) Urine Specific [place] 1.054 Urine Protein Negative mg/dL (NEGATIVE) Urine Glucose (UA) 50 mg/dL (NEGATIVE) Urine Ketones Negative mg/dL (NEGATIVE) Urine Blood Small (NEGATIVE) Urine Nitrite Negative (NEGATIVE) Urine Bilirubin Negative (NEGATIVE) Urine Urobilinogen 2.0 mg/dL (0.2-1.9) Urine Leukocyte Esterase Negative (NEGATIVE) Urine RBC 3 /HPF (0-2/HPF) Urine WBC None /HPF (0-5/HPF) Urine Squamous Epithelial Cells Many /LPF (</=FEW) Urine Bacteria Few /HPF (NONE-FEW) Urine Mucus None /HPF (NONE-FEW) Chemistry Test 10/24/17 12:50 10/24/17 16:45 White Blood Count 6.3 k/uL (4.5-11.0) Red Blood Count 4.60 M/uL (4.17-5.56) Hemoglobin 12.4 g/dL (12.0-16.0) Hematocrit 38.1 % (34.0-47.0) Mean Corpuscular Volume 82.8 fL (80.0-96.0) Mean Corpuscular Hemoglobin 27.0 pg (26.0-33.0) Mean Corpuscular Hemoglobin Concent 32.6 g/dL (32.0-36.0) Red Cell Distribution Width 14.3 % (11.5-14.5) Platelet Count 248 K/uL (150-450) Mean Platelet Volume 9.0 fL (7.2-11.1) Neutrophils (%) (Auto) 55.9 % (39.4-72.5) Lymphocytes (%) (Auto) 31.3 % (17.6-49.6) Monocytes (%) (Auto) 7.9 % (4.1-12.4) Eosinophils (%) (Auto) 3.9 % (0.4-6.7) Basophils (%) (Auto) 1.0 % (0.3-1.4) Nucleated RBC Relative Count (auto) 0.1 /100WBC Neutrophils # (Auto) 3.5 K/uL (2.0-7.4) Lymphocytes # (Auto) 2.0 K/uL (1.3-3.6) Monocytes # (Auto) 0.5 K/uL (0.3-1.0) Eosinophils # (Auto) 0.2 K/uL (0.0-0.5) Basophils # (Auto) 0.1 K/uL (0.0-0.1) Nucleated RBC Absolute Count (auto) 0.00 K/uL Peripheral Blood Smear No Y/N Prothrombin Time 14.4 seconds (12.0-14.4) Prothromb Time International Ratio 1.12 Activated Partial Thromboplast Time 30 seconds (23-35) D-Dimer Quantitative (PE/DVT) 0.71 ug/ml (0-0.50) Glomerular Filtration Rate Calc > 60.0 Calcium Level 9.1 mg/dl (8.4-10.2) Total Bilirubin 0.6 mg/dl (0.2-1.3) Aspartate Amino Transf (AST/SGOT) 35 U/L (0-35) Alanine Aminotransferase (ALT/SGPT) 45 U/L (0-56) Alkaline Phosphatase 135 U/L (0-126) Troponin I < 0.012 ng/ml Total Protein 7.6 gm/dl (6.3-8.2) Albumin 3.6 g/dl (3.5-5.0) Urine Color Yellow Urine Clarity Clear Urine pH 7.0 pH (4.8-9.5) Urine Specific [place] 1.054 Urine Protein Negative mg/dL (NEGATIVE) Urine Glucose (UA) 50 mg/dL (NEGATIVE) Urine Ketones Negative mg/dL (NEGATIVE) Urine Blood Small (NEGATIVE) Urine Nitrite Negative (NEGATIVE) Urine Bilirubin Negative (NEGATIVE) Urine Urobilinogen 2.0 mg/dL (0.2-1.9) Urine Leukocyte Esterase Negative (NEGATIVE) Urine RBC 3 /HPF (0-2/HPF) Urine WBC None /HPF (0-5/HPF) Urine Squamous Epithelial Cells Many /LPF (</=FEW) Urine Bacteria Few /HPF (NONE-FEW) Urine Mucus None /HPF (NONE-FEW) Coagulation Test 10/24/17 12:50 Prothrombin Time 14.4 seconds Prothromb Time International Ratio 1.12 Activated Partial Thromboplast Time 30 seconds D-Dimer Quantitative (PE/DVT) 0.71 ug/ml Urinalysis Test 10/24/17 16:45 Urine Color Yellow Urine Clarity Clear Urine pH 7.0 pH (4.8-9.5) Urine Specific [place] 1.054 Urine Protein Negative mg/dL (NEGATIVE) Urine Glucose (UA) 50 mg/dL (NEGATIVE) Urine Ketones Negative mg/dL (NEGATIVE) Urine Blood Small (NEGATIVE) Urine Nitrite Negative (NEGATIVE) Urine Bilirubin Negative (NEGATIVE) Urine Urobilinogen 2.0 mg/dL (0.2-1.9) Urine Leukocyte Esterase Negative (NEGATIVE) Urine RBC 3 /HPF (0-2/HPF) Urine WBC None /HPF (0-5/HPF) Urine Squamous Epithelial Cells Many /LPF (</=FEW) Urine Bacteria Few /HPF (NONE-FEW) Urine Mucus None /HPF (NONE-FEW) ED Course/Re-evaluation ED Course ED clinical course medical decision exam Female just generally doesn't feel well CT head chest abdomen and pelvis were all performed and were negative for anything acute findings she does have some issues with the concern of possible multiple myeloma advised her to follow-up with primary care urinalysis results of bloodwork relatively unremarkable she received some fluids is resting currently and ready for discharge diagnoses viral syndrome Decision to Disposition Date: Oct 24, 2017 Decision to Disposition Time: 17:25 Depart Departure Latest Vital Signs Vital Signs Date Time Temp Pulse Resp B/P (MAP) Pulse Ox O2 Delivery O2 Flow Rate FiO2 10/24/17 15:31 56 11 100 10/24/17 15:30 140/90 (107) 10/24/17 13:08 2.0 10/24/17 13:04 97.9 Nasal Cannula Impression: Primary Impression: Viral syndrome Condition: Improved Disposition: HOME OR SELF-CARE Referrals: ESEQUIEL WOOTEN PA-C (PCP) 5 Days Patient Instructions: Viral Syndrome (DC) MARIA C ALEXANDRE MD Oct 24, 2017 13:06
[2017-10-24] MEDS ORDERED: IOPAMIDOL 76% 75 ML INFUS BTL 75 ML ONE ×2 (13:13→15:37)
[2017-10-24] MEDS ORDERED: NS 0.9% 20 ML SDV 40 ML ONE (13:13)
[2017-10-24 13:18] LABS: PLATELET COUNT, AUTOMATED 248 K/uL (150-450)
--- NOTE | 2017-10-24 13:18 | EKG ---
[place] [facility] [place] NAME[place] FAHAD MORENO : [id number] MR: [id number] V: [id number] EXAM DATE: ORDERING PHYSICIAN: MARIA C ALEXANDRE TECHNOLOGIST: Benton Guillory Reason : Blood Pressure : / mmHG Vent. Rate : 059 BPM Atrial Rate : 059 BPM P-R Int : 174 ms QRS Dur : 080 ms QT Int : 440 ms P-R-T Axes : 060 -02 074 degrees QTc Int : 435 ms Sinus bradycardia Otherwise normal ECG When compared with ECG of 05-OCT-2017 17:39, Unchanged Confirmed by VASU CURTIS ([id number]) on 10/24/2017 5:18:45 PM Referred By: Confirmed By:VASU CURTIS
[2017-10-24 13:25] LABS: INR 1.12
--- NOTE | 2017-10-24 14:49 | RADIOLOGY IMAGING REPORT ---
FACILITY: [facility] PATIENT NAME: Ambar Rodriguez : 1940 MR: [id number] V: [id number] EXAM DATE: ORDERING PHYSICIAN: MARIA C ALEXANDRE TECHNOLOGIST: Location: [facility] [place] Patient: Ambar Rodriguez : 1940 Visit/Account:[id number] Date of Sevice: 10/24/2017 EXAMINATION: CT head without IV contrast HISTORY: Pain. TECHNIQUE: Axial CT images of the head were obtained from the vertex to the skull base without IV c ontrast, with coronal and sagittal 2D reconstructed images. One of the following dose optimization techniques was utilized in the performance of this exam: Autom ated exposure control; adjustment of the mA and/or kV according to the patient's size; or use of an i terative reconstruction technique. Specific details can be referenced in the facility's radiology C T exam operational policy. COMPARISON: 10/05/2017. FINDINGS: There is mild age-appropriate parenchymal volume loss, with stable patchy low attenuation in the deep white matter, suggesting chronic small vessel ischemic change. Intracranial vascular calcifications. No CT evidence of intracranial hemorrhage, mass lesion, or acute infarct. No midline shift or extra-a xial fluid collections. Mcmahan-white differentiation is maintained. The calvarium is intact. The partially visualized paranasal sinuses and mastoid air cells are unopaci fied. IMPRESSION: 1. No CT evidence of acute intracranial pathology. 2. Stable chronic age-related changes. Report Dictated By: Arcadio Santamaria MD at 10/24/2017 2:36 PM Report E-Signed By: Arcadio Santamaria MD at 10/24/2017 2:45 PM WSN:[id number]
--- NOTE | 2017-10-24 14:55 | RADIOLOGY IMAGING REPORT ---
FACILITY: [facility] PATIENT NAME: Ambar Rodriguez : 1940 MR: [id number] V: [id number] EXAM DATE: ORDERING PHYSICIAN: MARIA C ALEXANDRE TECHNOLOGIST: Location: [facility] - [place] Patient: Ambar Rodriguez : 1940 Visit/Account:[id number] Date of Sevice: 10/24/2017 EXAMINATION: CT abdomen and pelvis with IV contrast HISTORY: Pain. TECHNIQUE: Axial CT images of the abdomen and pelvis were obtained with IV contrast, with coronal a nd sagittal 2D reconstructed images. One of the following dose optimization techniques was utilized in the performance of this exam: Autom ated exposure control; adjustment of the mA and/or kV according to the patient's size; or use of an i terative reconstruction technique. Specific details can be referenced in the facility's radiology C T exam operational policy. Contrast: 75 mL of IV Isovue-370. COMPARISON: 05/10/2017. FINDINGS: Liver: Negative. Gallbladder and bile ducts: Cholecystectomy. No bile duct dilatation. Spleen: Negative. Pancreas: Stable mild parenchymal atrophy. No acute peripancreatic stranding. Adrenal glands: Negative. Kidneys: Negative. No hydronephrosis or urinary calculi. Bowel and peritoneum: The small bowel and colon are normal in caliber, without evidence of obstructi on or any focal inflammatory process. No bowel wall thickening. The appendix is not visualized in the right lower quadrant. It may be atrophic or surgically absent. No free fluid or free intraperitoneal air. Pelvic structures: Hysterectomy. The urinary bladder is unremarkable. Lymph node assessment: Negative. Vessels: Moderate vascular calcifications. Normal caliber abdominal aorta. Musculoskeletal: No acute osseous findings. Multilevel degenerative changes throughout the spine. Body wall: Small fat-containing umbilical hernia. There is some stable chronic soft tissue thickenin g along the subcutaneous fat of the right and left abdominal wall just below the level of the umbilic us. Lung bases: Negative. IMPRESSION: 1. No CT evidence of acute intra-abdominal pathology. 2. Prior cholecystectomy and hysterectomy. 3. Other nonacute findings as described. Report Dictated By: Arcadio Santamaria MD at 10/24/2017 2:45 PM Report E-Signed By: Arcadio Santamaria MD at 10/24/2017 2:51 PM WSN:[email or web address]
--- NOTE | 2017-10-24 15:12 | RADIOLOGY IMAGING REPORT ---
FACILITY: [facility] PATIENT NAME: Ambar Rodriguez : 1940 MR: [id number] V: [id number] EXAM DATE: ORDERING PHYSICIAN: MARIA C ALEXANDRE TECHNOLOGIST: Location: [facility] [place] Patient: Ambar Rodriguez : 1940 Visit/Account:[id number] Date of Sevice: 10/24/2017 Exam type: CHEST PA AND LAT History: Shortness of breath Comparison: Is 2016. Findings: Mild chronic initial prominence of the lungs remains unchanged. Cardiac silhouette also mildly in en larged but unchanged. There is no evidence of acute effusions infiltrates or edema. This mild ectas ia the thoracic aorta and mild spondylotic changes of the thoracic spine. IMPRESSION: 1. Mild cardiomegaly unchanged Mild interstitial prominence of the lungs unchanged with no evidence of acute pulmonary consolidation Report Dictated By: Lydia Schultz MD at 10/24/2017 3:06 PM Report E-Signed By: Lydia Schultz MD at 10/24/2017 3:07 PM WSN:[email or web address]
[2017-10-24] MEDS ORDERED: EMS NS 0.9%(*) 1000 ML BAG 1,000 ML IV ONE (15:15)
[2017-10-24] MEDS ORDERED: NS 0.9% 20 ML SDV 100 ML ONE (15:37)
--- NOTE | 2017-10-24 16:26 | RADIOLOGY IMAGING REPORT ---
FACILITY: [facility] PATIENT NAME: Ambar Rodriguez : 1940 MR: [id number] V: [id number] EXAM DATE: ORDERING PHYSICIAN: MARIA C ALEXANDRE TECHNOLOGIST: Location: [facility] Patient: Ambar Rodriguez : 1940 Visit/Account:[id number] Date of Sevice: 10/24/2017 CTA CHEST WW/O CNTR (PULM ANG) Provided history: pe ro Additional pertinent history: none TECHNIQUE: Pulmonary embolus protocol - Thin-slice axial imaging of the chest was performed during maximal pulmo nary arterial opacification with intravenous nonionic iodinated contrast. 3D coronal slab MIPs and 2D reconstructions in the coronal and sagittal planes were performed to aid in pulmonary embolus detect ion. [employer] images have been stored on PACS. EKG gating: no Contrast: 75 ml Isovue 370 One of the following dose optimization techniques was utilized in the performance of this exam: Autom ated exposure control; adjustment of the mA and/or kV according to the patient's size; or use of an i terative reconstruction technique. Specific details can be referenced in the facility's radiology C T exam operational policy. COMPARISON STUDIES: CTA chest 05/27/14 FINDINGS: Angiographic Findings: Pulmonary arteries: There are no filling defects in the main, right, left, lobar, segmental or visual ized sub-segmental branches of the pulmonary arterial system Thoracic aorta: Moderate calcification. No obvious dissection. Additional non-angiographic findings: Lungs / pleura / keenan: negative Lower neck: Mildly enlarged heterogenous thyroid noted. No dominant mass appreciated. Mediastinum: negative Heart / pericardium: Moderate concentric LVH. Other Vessels: Advanced three-vessel coronary artery calcification. Body wall: negative Upper abdomen: negative Lymph nodes: negative Bones: There are multifocal lucencies in the thoracic vertebral bodies and the sternum but with a sim ilar pattern to prior examination. Although myeloma would be a consideration, stability from prior in termediate against that. IMPRESSION: 1. No CT evidence of acute pulmonary embolism. No acute pulmonary disease. 2. Heavily calcified coronary arteries. 3. Multifocal osseous lucencies but little change from 2014. See above comments. Report called to MARIA C ALEXANDRE, 10/24/2017 4:12 PM. Report Dictated By: Nav Oden MD at 10/24/2017 4:12 PM Report E-Signed By: Nav Oden MD at 10/24/2017 4:22 PM WSN:[id number]
[2017-10-24 17:30] VITALS: BP 144/88
== END 2017-10-24 18:00 | disposition home or self-care (01) ==
LOC: ER 13:07
DX: B34.9 Viral infection, unspecified (principal); R42 Dizziness and giddiness; R07.89 Other chest pain
CPT/HCPCS: 70450; 71046; 71275; 74177; 81001; 84484; 85025; 85379; 85610; 85730; 93005; 96360; 96361; 99284; J7050; Q9967; 82040; 82247; 82310; 82374; 82435; 82565; 82947; 84075; 84132; 84155; 84295; 84450; 84460; 84520

== ENCOUNTER → 2017-10-24 | Outpatient (CLI) | payer MEDICARE ==
[2017-10-10 10:05] VITALS: BMI 34.2
[~2017-10-24] MED LIST changes: +ALB18R INH; +FURO20TA19 PO; +INSU100I30 SUBQ; +INSU200I SQ; +NITR-1 PO; +TAMS0.4C70 PO
== END ==
LOC: AMB 12:20
PROVIDERS: ATTEND Nurse Practitioner
DX: K92.1 Melena (principal); R19.30 Abdominal rigidity, unspecified site; R51 Headache; M54.2 Cervicalgia
CPT/HCPCS: A0425; A0427

== ENCOUNTER 2018-01-01 13:59 | Emergency (ER) | payer MEDICARE ==
[2017-10-10 10:05] VITALS: Wt 87.7 kg
--- NOTE | 2018-01-01 14:57 | ER Report ---
History and Physical Time Seen By MD: 14:56 Hx. of Stated Complaint: Abdominal pain HPI/ROS Patient is 77-year-old female ambulatory to the ER complains of periumbilical abdominal pain 24 hours states that she's been nauseated and vomiting have multiple episodes of diarrhea no fever or chills Allergies: Coded Allergies: morphine (Verified Allergy, Unknown, HIVES, 01/01/18) codeine (Verified Adverse Reaction, Unknown, NAUSEA/VOMITING, 01/01/18) Home Meds Active Scripts Cephalexin 500 Mg Tab (KEFLEX 500 MG TAB) 500 Mg Tablet, 500 MG PO Q6H, #28 TAB Prov:YARI FLORES APRN-C 01/01/18 Ondansetron (ZOFRAN ODT) 4 Mg Tab.rapdis, 4 MG PO Q6H Y for NAUSEA/VOMITING, # 30 TAB.DORA Prov:YARI FLORES APRN-C 01/01/18 Gabapentin (GABAPENTIN) 300 Mg Capsule, 300 MG PO TID for 30 Days, CAPSULE Prov:VASU CURTIS MD 10/11/17 Tamsulosin Hcl (TAMSULOSIN HCL) 0.4 Mg Cap.er.24h, 0.4 MG PO QDAY for 30 Days, Prov:VASU CURTIS MD 10/11/17 Insulin Glargine 100 Un/Ml Pen (LANTUS SOLOSTAR PEN) 100 Unit/1 Ml Insuln.pen, 15 UNIT SUBQ BID for 30 Days, Prov:VASU CURTIS MD 10/11/17 Reported Medications Sulfamethoxazole/Trimet 800-160 Mg Tab (BACTRIM DS TABLET) 1 Each Tablet, 1 TAB PO Q12H, #15 TAB 10/11/17 Insulin Lispro 200 UN/ML PEN (Humalog Kwikpen) 200 Unit/1 Ml Insuln.pen, 18 UNITS SQ TID 10/06/17 Oxygen (OXYGEN) Inha, 0 INH, L 06/21/15 Nitroglycerin (NITROSTAT) 0.4 Mg Subl, 0.4 MG SL PRN, TAB 06/21/15 Aspirin (ASPIR 81) 81 Mg Tablet.dr, 81 MG PO QDAY, TAB 06/21/15 Pravastatin Sodium (PRAVASTATIN SODIUM) 20 Mg Tablet, 20 MG PO HS, TAB 06/21/15 Pantoprazole Sodium (PANTOPRAZOLE SODIUM) 40 Mg Tablet.dr, 40 MG PO QDAY, TAB.SR 06/21/15 Metoprolol Tartrate (METOPROLOL TARTRATE) 100 Mg Tablet, 50 MG PO BID, TAB 06/21/15 Amlodipine Besylate (AMLODIPINE BESYLATE) 10 Mg Tablet, 1 TAB PO QDAY, TAB 06/21/15 Past Medical/Surgical History Glaucoma, tonsillectomy, CVA, TIA, dementia, seizures, headaches, Hx Smoking: No Smoking Status: Former Smoker Exposure to Second Hand Smoke?: Yes Hx Substance Use Disorder: No Hx Alcohol Use: Yes (none currently) Constitutional Vital Sign - Last 24 Hours 01/01/18 14:58 Temp 98.3 Pulse 84 Resp 16 B/P (MAP) 207/90 Pulse Ox 92 O2 Delivery Room Air Physical Exam General Appearance: [The patient is alert, L distress lysing bed with her eyes closed family or close proximity has no immediate need for airway protection and no current signs of toxicity.] [ ] Eyes: Pupils equal and round no injection. Respiratory: Chest is non tender, lungs are clear to auscultation. Cardiac: regular rate and rhythm [ ] Gastrointestinal: Abdomen is soft mildly tender bowel sounds are hyperactive mild tenderness mid epigastric area Musculoskeletal: Neck: Neck is supple and non tender. Extremities have full range of motion and are non tender. Skin: No rashes or lesions. [ ] DIFFERENTIAL DIAGNOSIS: After history and physical exam differential diagnosis was considered for [gastritis, versus cholecystitis, versus bowel obstruction, ] Medical Decision Making Data Points Result Diagram: 01/01/18 1500 01/01/18 1500 Laboratory Hematology Test 01/01/18 14:53 01/01/18 15:00 Urine Color Yellow Urine Clarity Cloudy Urine pH 6.0 pH (4.8-9.5) Urine Specific Byron 1.026 Urine Protein 500 mg/dL (NEGATIVE) Urine Glucose (UA) 500 mg/dL (NEGATIVE) Urine Ketones 20 mg/dL (NEGATIVE) Urine Blood Small (NEGATIVE) Urine Nitrite Positive (NEGATIVE) Urine Bilirubin Negative (NEGATIVE) Urine Urobilinogen Negative mg/dL (0.2-1.9) Urine Leukocyte Esterase Negative (NEGATIVE) Urine RBC 5 /HPF (0-2/HPF) Urine WBC 6 /HPF (0-5/HPF) Urine Squamous Epithelial Cells Many /LPF (</=FEW) Urine Bacteria Few /HPF (NONE-FEW) Urine Mucus None /HPF (NONE-FEW) Red Blood Count 5.17 M/uL (4.17-5.56) Mean Corpuscular Volume 81.8 fL (80.0-96.0) Mean Corpuscular Hemoglobin 27.2 pg (26.0-33.0) Mean Corpuscular Hemoglobin Concent 33.2 g/dL (32.0-36.0) Red Cell Distribution Width 14.0 % (11.5-14.5) Mean Platelet Volume 9.5 fL (7.2-11.1) Neutrophils (%) (Auto) 77.7 % (39.4-72.5) Lymphocytes (%) (Auto) 16.1 % (17.6-49.6) Monocytes (%) (Auto) 5.7 % (4.1-12.4) Eosinophils (%) (Auto) 0.3 % (0.4-6.7) Basophils (%) (Auto) 0.2 % (0.3-1.4) Nucleated RBC Relative Count (auto) 0.1 /100WBC Neutrophils # (Auto) 4.8 K/uL (2.0-7.4) Lymphocytes # (Auto) 1.0 K/uL (1.3-3.6) Monocytes # (Auto) 0.4 K/uL (0.3-1.0) Eosinophils # (Auto) 0.0 K/uL (0.0-0.5) Basophils # (Auto) 0.0 K/uL (0.0-0.1) Nucleated RBC Absolute Count (auto) 0.00 K/uL Prothrombin Time 15.4 seconds (12.0-14.4) Prothromb Time International Ratio 1.21 Activated Partial Thromboplast Time 29 seconds (23-35) Sodium Level 138 mmol/L (137-145) Potassium Level 3.9 mmol/L (3.5-5.0) Chloride Level 100 mmol/L (98-107) Carbon Dioxide Level 24 mmol/L (22-31) Blood Urea Nitrogen 18 mg/dl (7-18) Creatinine 0.70 mg/dl (0.52-1.04) Glomerular Filtration Rate Calc > 60.0 Random Glucose 284 mg/dl (75-110) Calcium Level 9.2 mg/dl (8.4-10.2) Total Bilirubin 0.7 mg/dl (0.2-1.3) Aspartate Amino Transf (AST/SGOT) 40 U/L (0-35) Alanine Aminotransferase (ALT/SGPT) 34 U/L (0-56) Alkaline Phosphatase 122 U/L (0-126) Troponin I < 0.012 ng/ml B-Type Natriuretic Peptide 531 pg/ml (0-100) Total Protein 7.8 gm/dl (6.3-8.2) Albumin 3.8 g/dl (3.5-5.0) Amylase Level 65 U/L (0-110) Lipase 16 U/L (23-300) Chemistry Test 01/01/18 14:53 01/01/18 15:00 Urine Color Yellow Urine Clarity Cloudy Urine pH 6.0 pH (4.8-9.5) Urine Specific Byron 1.026 Urine Protein 500 mg/dL (NEGATIVE) Urine Glucose (UA) 500 mg/dL (NEGATIVE) Urine Ketones 20 mg/dL (NEGATIVE) Urine Blood Small (NEGATIVE) Urine Nitrite Positive (NEGATIVE) Urine Bilirubin Negative (NEGATIVE) Urine Urobilinogen Negative mg/dL (0.2-1.9) Urine Leukocyte Esterase Negative (NEGATIVE) Urine RBC 5 /HPF (0-2/HPF) Urine WBC 6 /HPF (0-5/HPF) Urine Squamous Epithelial Cells Many /LPF (</=FEW) Urine Bacteria Few /HPF (NONE-FEW) Urine Mucus None /HPF (NONE-FEW) White Blood Count 6.2 k/uL (4.5-11.0) Red Blood Count 5.17 M/uL (4.17-5.56) Hemoglobin 14.0 g/dL (12.0-16.0) Hematocrit 42.3 % (34.0-47.0) Mean Corpuscular Volume 81.8 fL (80.0-96.0) Mean Corpuscular Hemoglobin 27.2 pg (26.0-33.0) Mean Corpuscular Hemoglobin Concent 33.2 g/dL (32.0-36.0) Red Cell Distribution Width 14.0 % (11.5-14.5) Platelet Count 199 K/uL (150-450) Mean Platelet Volume 9.5 fL (7.2-11.1) Neutrophils (%) (Auto) 77.7 % (39.4-72.5) Lymphocytes (%) (Auto) 16.1 % (17.6-49.6) Monocytes (%) (Auto) 5.7 % (4.1-12.4) Eosinophils (%) (Auto) 0.3 % (0.4-6.7) Basophils (%) (Auto) 0.2 % (0.3-1.4) Nucleated RBC Relative Count (auto) 0.1 /100WBC Neutrophils # (Auto) 4.8 K/uL (2.0-7.4) Lymphocytes # (Auto) 1.0 K/uL (1.3-3.6) Monocytes # (Auto) 0.4 K/uL (0.3-1.0) Eosinophils # (Auto) 0.0 K/uL (0.0-0.5) Basophils # (Auto) 0.0 K/uL (0.0-0.1) Nucleated RBC Absolute Count (auto) 0.00 K/uL Prothrombin Time 15.4 seconds (12.0-14.4) Prothromb Time International Ratio 1.21 Activated Partial Thromboplast Time 29 seconds (23-35) Glomerular Filtration Rate Calc > 60.0 Calcium Level 9.2 mg/dl (8.4-10.2) Total Bilirubin 0.7 mg/dl (0.2-1.3) Aspartate Amino Transf (AST/SGOT) 40 U/L (0-35) Alanine Aminotransferase (ALT/SGPT) 34 U/L (0-56) Alkaline Phosphatase 122 U/L (0-126) Troponin I < 0.012 ng/ml B-Type Natriuretic Peptide 531 pg/ml (0-100) Total Protein 7.8 gm/dl (6.3-8.2) Albumin 3.8 g/dl (3.5-5.0) Amylase Level 65 U/L (0-110) Lipase 16 U/L (23-300) Coagulation Test 01/01/18 15:00 Prothrombin Time 15.4 seconds Prothromb Time International Ratio 1.21 Activated Partial Thromboplast Time 29 seconds Urinalysis Test 01/01/18 14:53 Urine Color Yellow Urine Clarity Cloudy Urine pH 6.0 pH (4.8-9.5) Urine Specific Byron 1.026 Urine Protein 500 mg/dL (NEGATIVE) Urine Glucose (UA) 500 mg/dL (NEGATIVE) Urine Ketones 20 mg/dL (NEGATIVE) Urine Blood Small (NEGATIVE) Urine Nitrite Positive (NEGATIVE) Urine Bilirubin Negative (NEGATIVE) Urine Urobilinogen Negative mg/dL (0.2-1.9) Urine Leukocyte Esterase Negative (NEGATIVE) Urine RBC 5 /HPF (0-2/HPF) Urine WBC 6 /HPF (0-5/HPF) Urine Squamous Epithelial Cells Many /LPF (</=FEW) Urine Bacteria Few /HPF (NONE-FEW) Urine Mucus None /HPF (NONE-FEW) ED Course/Re-evaluation Clinical Indication for ER IV: Hydration ED Course Received IV fluids feels better after Zofran and fentanyl CAT scan of the abdomen just showed fluid-filled loops of bowel did talk to family saying this was a gastroenteritis sort of picture we'll send her home with Zofran for nausea she has a small UTI him to treat her with a gram of Rocephin IV and home with Keflex Re-evaluation Diagnosis with gastroenteritis, UTI home with prescriptions for Zofran and Keflex Decision to Disposition Date: Jan 01, 2018 Decision to Disposition Time: 18:18 Depart Departure Latest Vital Signs Vital Signs Date Time Temp Pulse Resp B/P (MAP) Pulse Ox O2 Delivery O2 Flow Rate FiO2 01/01/18 14:58 98.3 84 16 207/90 92 Room Air Impression: Primary Impression: UTI (urinary tract infection) Additional Impression: Gastroenteritis Condition: Improved Disposition: HOME OR SELF-CARE Referrals: ESEQUIEL WOOTEN PA-C (PCP) 5 Days New Scripts Cephalexin 500 Mg Tab (KEFLEX 500 MG TAB) 500 Mg Tablet 500 MG PO Q6H, #28 TAB Prov: YARI FLORES 01/01/18 Ondansetron (ZOFRAN ODT) 4 Mg Tab.rapdis 4 MG PO Q6H Y for NAUSEA/VOMITING, #30 TAB.DORA Prov: YARI FLORES 01/01/18 Patient Instructions: Gastroenteritis (ED), Urinary Tract Infection in Women ( ED) Additional Instructions: Keflex 504 times a day 7 days, push oral fluids, Problem Qualifiers YARI FLORES Jan 01, 2018 14:57
[2018-01-01] MEDS ORDERED: NS(*) 0.9% 1000 ML BAG 1,000 ML IV ONE (15:10)
[2018-01-01] MEDS ORDERED: ONDANSETRON 4 MG/2 ML VIAL IVP ONE (15:10)
[2018-01-01 15:19] LABS: PLATELET COUNT, AUTOMATED 199 K/uL (150-450)
[2018-01-01 15:26] LABS: INR 1.21
--- NOTE | 2018-01-01 15:35 | RADIOLOGY IMAGING REPORT ---
FACILITY: PATIENT NAME: Ambar Rodriguez : 1940 MR: [id number] V: [id number] EXAM DATE: ORDERING PHYSICIAN: YARI FLORES TECHNOLOGIST: Location: [facility] Patient: Ambar Rodriguez : 1940 Visit/Account:[id number] Date of Sevice: 01/01/2018 CHEST SINGLE AP Indication: Dyspnea and vomiting.. Comparison: 10/24/2017. Findings: Cardiomediastinal silhouette and pulmonary vessels within normal limits for the technique. There is no focal infiltrate or lobar consolidation. No pneumothorax or pleural effusion. No nodule. Chronic interstitial changes. Upper abdomen is unremarkable. No acute bony abnormality. IMPRESSION: 1. No acute cardiopulmonary process. Report Dictated By: Dave Mckenna at 01/01/2018 3:28 PM Report E-Signed By: Dave Mckenna at 01/01/2018 3:30 PM WSN:[id number]
--- NOTE | 2018-01-01 15:39 | EKG ---
FACILITY: [facility] [place] PATIENT NAME: FAHAD MORENO : [id number] MR: [id number] V: [id number] EXAM DATE: ORDERING PHYSICIAN: YARI FLORES TECHNOLOGIST: NEERU Test Reason : NAUSEA Blood Pressure : / mmHG Vent. Rate : 068 BPM Atrial Rate : 068 BPM P-R Int : 166 ms QRS Dur : 084 ms QT Int : 434 ms P-R-T Axes : 066 -16 064 degrees QTc Int : 461 ms Sinus rhythm Left axis Poor R wave progression anteriorly Borderline ECG Confirmed by KALYN MADISON ([id number]) on 01/01/2018 5:13:16 PM Referred By: SHILOH Confirmed By:KALYN MADISON
[2018-01-01] MEDS ORDERED: fentaNYL CITR 100 MCG/2 ML AMP IVP ONE (16:20)
[2018-01-01] MEDS ORDERED: IOPAMIDOL 76% 75 ML INFUS BTL 75 ML ONE (16:33)
--- NOTE | 2018-01-01 17:15 | RADIOLOGY IMAGING REPORT ---
FACILITY: [facility] [place] PATIENT NAME: Abmar Rodriguez : 1940 MR: [id number] V: [id number] EXAM DATE: ORDERING PHYSICIAN: YARI FLORES TECHNOLOGIST: Location: [facility] [place] Patient: Ambar Rodriguez : 1940 Visit/Account:[id number] Date of Sevice: 01/01/2018 ABDOMEN/PELVIS WITH CONTRAST HISTORY: abd pain vomiting TECHNIQUE: Following administration of IV contrast contiguous axial images acquired through the abdom en/pelvis. Coronal and sagittal reformatting also performed. Dose Lowering Technique One of the following dose optimization techniques was utilized in the performance of this exam: Autom ated exposure control; adjustment of the mA and/or kV according to the patient's size; or use of an i terative reconstruction technique. Specific details can be referenced in the facility's radiology C T exam operational policy. CONTRAST: 75 mL Isovue-370 COMPARISON: There is a small amount of atelectasis in the inferior right middle lobe FINDINGS: Visualized lung bases: Negative. Hepatobiliary: Postsurgical changes from a cholecystectomy Spleen: Negative. Adrenals: Negative. Pancreas: Negative. Kidneys ureters or bladder: No hydronephrosis or nephrolithiasis. There is air within the urinary bl adder. Genitalia: Hysterectomy GI: There are several minimally prominent fluid-filled loops of small bowel in the left mid abdomen although transitional point is not seen. This does not appear to represent an obstructive pattern. There is a small hiatal hernia Vessels/spaces/nodes: Severe vascular calcifications throughout the abdomen and pelvis Bones/soft tissues: Multilevel spondylotic changes throughout the visualized thoracolumbar spine. C hronic soft tissue thickening seen along the subtendinous fat intra-abdominal wall just below the lev el the umbilicus small periumbilical hernia containing fat Additional findings: None pertinent. IMPRESSION: There are several minimally prominent fluid-filled loops of small bowel in the left mid abdomen altho ugh no transitional point is seen. This does not appear to represent an obstructive pattern. Small hiatal hernia Small umbilical hernia containing fat Postsurgical changes from a cholecystectomy and hysterectomy Small amount of atelectasis inferior right middle lobe Report Dictated By: Lydia Schultz MD at 01/01/2018 4:59 PM Report E-Signed By: Lydia Schultz MD at 01/01/2018 5:11 PM WSN:[id number]
[2018-01-01] MEDS ORDERED: cefTRIAXone 1 GM VIAL IVP ONE (17:40)
[2018-01-01] MEDS ORDERED: ONDA4TAB PO (17:41)
[2018-01-01] MEDS ORDERED: CEPH500T7 PO (17:41)
[2018-01-01 18:00] VITALS: BP 201/104
== END 2018-01-01 18:20 | disposition home or self-care (01) ==
LOC: ER 14:48
DX: N39.0 Urinary tract infection, site not specified (principal); K52.9 Noninfective gastroenteritis and colitis, unspecified
CPT/HCPCS: 71045; 74177; 81001; 82150; 83690; 83880; 84484; 85025; 85610; 85730; 87088; 93005; 96361; 96374; 96375; 99284; J0696; J2405; J3010; J7030; Q9967; 82040; 82247; 82310; 82374; 82435; 82565; 82947; 84075; 84132; 84155; 84295; 84450; 84460; 84520; 87077; 87186

== ENCOUNTER 2018-07-12 10:30 | Emergency (ER) | payer MEDICARE ==
[2017-10-10 10:05] VITALS: Wt 83.5 kg
[~2018-07-12 10:30] MED LIST changes: +AMLO-113 PO; -AMLO-99 PO; -METF-420 PO; +METF-452 PO; -POTA20PA10 PO; +POTA20PA31 PO
--- NOTE | 2018-07-12 10:36 | ER Report ---
History and Physical Time Seen By MD: 10:36 HPI/ROS CHIEF COMPLAINT: Myalgias, fatigue, congestion, nausea, abdominal cramping pain HISTORY OF PRESENT ILLNESS: Patient is a 78-year-old female here with complaints of the above with concern for dark stools, diarrhea for the past several days. Patient has been tolerating by mouth intake but feels nauseous with abdominal cramping, diffuse myalgias, congestion, sore throat. Patient is hemodynamically stable at time of evaluation and in no acute distress. Patient is afebrile at time of evaluation. Patient has no history of GI bleed or bleeding dyscrasia. Patient also complains of ongoing right proximal arm pain with no gross deformity REVIEW OF SYSTEMS: Constitutional: Subjective fever, chills. Eyes: No discharge. ENT: + sore throat. Cardiovascular: No chest pain, no palpitations. Respiratory: + cough, + mild shortness of breath. Gastrointestinal: Crampy abdominal pain, no vomiting, + nausea, intermittent dark stools Genitourinary: No hematuria. Musculoskeletal: No back pain. Skin: No rashes. Neurological: + headache. Allergies: Coded Allergies: morphine (Verified Allergy, Unknown, HIVES, 01/01/18) codeine (Verified Adverse Reaction, Unknown, NAUSEA/VOMITING, 01/01/18) Home Meds Active Scripts Cephalexin 500 Mg Tab (KEFLEX 500 MG TAB) 500 Mg Tablet, 500 MG PO Q6H, #28 TAB Prov:YARI FLORES APRN-C 01/01/18 Ondansetron (ZOFRAN ODT) 4 Mg Tab.rapdis, 4 MG PO Q6H PRN for NAUSEA/VOMITING, #30 TAB.DORA Prov:YARI FLORES APRN-C 01/01/18 Gabapentin (GABAPENTIN) 300 Mg Capsule, 300 MG PO TID for 30 Days, CAPSULE Prov:VASU CURTIS MD 10/11/17 Tamsulosin Hcl (TAMSULOSIN HCL) 0.4 Mg Cap.er.24h, 0.4 MG PO QDAY for 30 Days, Prov:VASU CURTIS MD 10/11/17 Insulin Glargine 100 Un/Ml Pen (LANTUS SOLOSTAR PEN) 100 Unit/1 Ml Insuln.pen, 15 UNIT SUBQ BID for 30 Days, Prov:VASU CURTIS MD 10/11/17 Reported Medications Sulfamethoxazole/Trimet 800-160 Mg Tab (BACTRIM DS TABLET) 1 Each Tablet, 1 TAB PO Q12H, #15 TAB 10/11/17 Insulin Lispro 200 UN/ML PEN (Humalog Kwikpen) 200 Unit/1 Ml Insuln.pen, 18 UNITS SQ TID 10/06/17 Oxygen (OXYGEN) Inha, 0 INH, L 06/21/15 Nitroglycerin (NITROSTAT) 0.4 Mg Subl, 0.4 MG SL PRN, TAB 06/21/15 Aspirin (ASPIR 81) 81 Mg Tablet.dr, 81 MG PO QDAY, TAB 06/21/15 Pravastatin Sodium (PRAVASTATIN SODIUM) 20 Mg Tablet, 20 MG PO HS, TAB 06/21/15 Pantoprazole Sodium (PANTOPRAZOLE SODIUM) 40 Mg Tablet.dr, 40 MG PO QDAY, TAB.SR 06/21/15 Metoprolol Tartrate (METOPROLOL TARTRATE) 100 Mg Tablet, 50 MG PO BID, TAB 06/21/15 Amlodipine Besylate (AMLODIPINE BESYLATE) 10 Mg Tablet, 1 TAB PO QDAY, TAB 06/21/15 Hx Smoking: No Smoking Status: Former Smoker Exposure to Second Hand Smoke?: Yes Hx Substance Use Disorder: No Hx Alcohol Use: Yes (none currently) Constitutional Vital Sign - Last 24 Hours 07/12/18 07/12/18 07/12/18 07/12/18 10:34 10:53 11:00 11:30 Temp 98.4 Pulse 74 70 Resp 20 B/P (MAP) 204/97 198/85 (122) 197/89 (125) 202/90 (127) Pulse Ox 89 95 96 O2 Delivery Room Air 07/12/18 07/12/18 07/12/18 07/12/18 12:00 12:30 12:30 13:00 Pulse 66 66 65 B/P (MAP) 211/105 (140) 205/117 (146) 210/93 (132) Pulse Ox 96 95 95 93 Physical Exam General Appearance: The patient is alert, has no immediate need for airway protection and no signs of toxicity. NAD Eyes: Pupils equal and round no pallor or injection. ENT, Mouth: Mucous membranes are moist. Respiratory: There are no retractions, lungs are clear to auscultation. Cardiovascular: Regular rate and rhythm. Gastrointestinal: Abdomen is soft and + mildly tender, no masses, bowel sounds normal. Neurological: No focal neuro deficits, NV intact in extremities Skin: Warm and dry, no rashes. Musculoskeletal: Neck is supple non tender. Extremities are nontender, nonswollen and have full range of motion. DIFFERENTIAL DIAGNOSIS: After history and physical exam differential diagnosis was considered for influenza, viral syndrome, dehydration, GI bleed, electrolyte abnormality, pharyngitis Medical Decision Making Data Points Result Diagram: 07/12/18 1055 07/12/18 1055 Laboratory Hematology Test 07/12/18 10:54 07/12/18 10:55 Influenza Virus Type A (PCR) Negative (NEGATIVE) Influenza Virus Type B (PCR) Negative (NEGATIVE) Red Blood Count 4.70 M/uL (4.17-5.56) Mean Corpuscular Volume 83.7 fL (80.0-96.0) Mean Corpuscular Hemoglobin 27.1 pg (26.0-33.0) Mean Corpuscular Hemoglobin Concent 32.4 g/dL (32.0-36.0) Red Cell Distribution Width 14.8 % (11.5-14.5) Mean Platelet Volume 8.8 fL (7.2-11.1) Neutrophils (%) (Auto) 57.2 % (39.4-72.5) Lymphocytes (%) (Auto) 29.7 % (17.6-49.6) Monocytes (%) (Auto) 8.0 % (4.1-12.4) Eosinophils (%) (Auto) 4.4 % (0.4-6.7) Basophils (%) (Auto) 0.7 % (0.3-1.4) Nucleated RBC Relative Count (auto) 0.0 /100WBC Neutrophils # (Auto) 3.3 K/uL (2.0-7.4) Lymphocytes # (Auto) 1.7 K/uL (1.3-3.6) Monocytes # (Auto) 0.5 K/uL (0.3-1.0) Eosinophils # (Auto) 0.3 K/uL (0.0-0.5) Basophils # (Auto) 0.0 K/uL (0.0-0.1) Nucleated RBC Absolute Count (auto) 0.00 K/uL Prothrombin Time 14.2 seconds (12.0-14.4) Prothromb Time International Ratio 1.10 Activated Partial Thromboplast Time 32 seconds (23-35) Sodium Level 142 mmol/L (137-145) Potassium Level 3.8 mmol/L (3.5-5.0) Chloride Level 104 mmol/L (98-107) Carbon Dioxide Level 31 mmol/L (22-31) Blood Urea Nitrogen 17 mg/dl (7-18) Creatinine 0.60 mg/dl (0.52-1.04) Glomerular Filtration Rate Calc > 60.0 Random Glucose 194 mg/dl (75-110) Lactate 0.9 mmol/L (0.7-2.1) Calcium Level 9.0 mg/dl (8.4-10.2) Total Bilirubin 0.5 mg/dl (0.2-1.3) Aspartate Amino Transf (AST/SGOT) 25 U/L (0-35) Alanine Aminotransferase (ALT/SGPT) 28 U/L (0-56) Alkaline Phosphatase 93 U/L (0-126) Total Protein 7.1 g/dl (6.3-8.2) Albumin 3.5 g/dl (3.5-5.0) Lipase 11 U/L (23-300) Chemistry Test 07/12/18 10:54 07/12/18 10:55 Influenza Virus Type A (PCR) Negative (NEGATIVE) Influenza Virus Type B (PCR) Negative (NEGATIVE) White Blood Count 5.8 k/uL (4.5-11.0) Red Blood Count 4.70 M/uL (4.17-5.56) Hemoglobin 12.7 g/dL (12.0-16.0) Hematocrit 39.3 % (34.0-47.0) Mean Corpuscular Volume 83.7 fL (80.0-96.0) Mean Corpuscular Hemoglobin 27.1 pg (26.0-33.0) Mean Corpuscular Hemoglobin Concent 32.4 g/dL (32.0-36.0) Red Cell Distribution Width 14.8 % (11.5-14.5) Platelet Count 177 K/uL (150-450) Mean Platelet Volume 8.8 fL (7.2-11.1) Neutrophils (%) (Auto) 57.2 % (39.4-72.5) Lymphocytes (%) (Auto) 29.7 % (17.6-49.6) Monocytes (%) (Auto) 8.0 % (4.1-12.4) Eosinophils (%) (Auto) 4.4 % (0.4-6.7) Basophils (%) (Auto) 0.7 % (0.3-1.4) Nucleated RBC Relative Count (auto) 0.0 /100WBC Neutrophils # (Auto) 3.3 K/uL (2.0-7.4) Lymphocytes # (Auto) 1.7 K/uL (1.3-3.6) Monocytes # (Auto) 0.5 K/uL (0.3-1.0) Eosinophils # (Auto) 0.3 K/uL (0.0-0.5) Basophils # (Auto) 0.0 K/uL (0.0-0.1) Nucleated RBC Absolute Count (auto) 0.00 K/uL Prothrombin Time 14.2 seconds (12.0-14.4) Prothromb Time International Ratio 1.10 Activated Partial Thromboplast Time 32 seconds (23-35) Glomerular Filtration Rate Calc > 60.0 Lactate 0.9 mmol/L (0.7-2.1) Calcium Level 9.0 mg/dl (8.4-10.2) Total Bilirubin 0.5 mg/dl (0.2-1.3) Aspartate Amino Transf (AST/SGOT) 25 U/L (0-35) Alanine Aminotransferase (ALT/SGPT) 28 U/L (0-56) Alkaline Phosphatase 93 U/L (0-126) Total Protein 7.1 g/dl (6.3-8.2) Albumin 3.5 g/dl (3.5-5.0) Lipase 11 U/L (23-300) Coagulation Test 07/12/18 10:55 Prothrombin Time 14.2 seconds Prothromb Time International Ratio 1.10 Activated Partial Thromboplast Time 32 seconds EKG/Imaging Imaging EXAMINATION: Chest radiographs 2 views HISTORY: Shortness of breath, chest pain. COMPARISON: 01/01/2018. FINDINGS: Frontal and lateral views of the chest are submitted. Lines/tubes: Coronary artery stents. Lungs/pleura: No focal consolidation or pleural effusion. Pulmonary vascularity is within normal limits. No evidence of pneumothorax. Heart: Negative. Mediastinum: Calcified plaque of the thoracic aorta. Bony structures/body wall: Mild degenerative changes in the thoracic spine and shoulders. IMPRESSION: No radiographic evidence of acute cardiopulmonary disease. CCESSION #: [id number] INDICATION: pain. DATE: 07/12/2018 12:49 PM. TECHNIQUE: HUMERUS RIGHT COMPARISON: Chest radiograph January 01, 2018 FINDINGS: Bony alignment is normal without evidence of fracture or dislocation. There may be a small effusion with calcific debris or crystals at the AC joint. The area of raised cortex at the mid humeral shaft corresponds to the deltoid insertion. IMPRESSION: No acute osseous abnormality. ED Course/Re-evaluation ED Course Patient is a 78-year-old female here with complaints of nausea, diffuse myalgias, mild shortness breath, intermittent dark stools, loose stools, sore throat, congestion, cough. Patient also complains of intermittent right humerus pain. No acute fracture was identified on x-ray. Due to the patient shortness of breath, chest x-ray was completed which showed no acute pulmonary abnormalities or signs of infection or consolidations. Patient was given IV fluids, Zofran, Tylenol for symptom management. Patient had significant relief of symptoms prior to discharge. Labs showed no acute abnormalities, no leukocytosis or electrolyte abnormalities. Lactate was unremarkable. No further imaging was indicated at this time. Patient was advised to drink plenty of water and follow up with PCP in the next several days. Patient was advised to return promptly if she develop worsening symptoms, inability to tolerate by mouth intake. H&H was stable. Patient complains likely secondary to a viral illness. Conservative management indicated. Decision to Disposition Date: Jul 12, 2018 Decision to Disposition Time: 13:00 Depart Departure Latest Vital Signs Vital Signs Date Time Temp Pulse Resp B/P (MAP) Pulse Ox O2 Delivery O2 Flow Rate FiO2 07/12/18 13:00 65 210/93 (132) 93 07/12/18 10:34 98.4 20 Room Air Impression: Primary Impression: Dehydration Additional Impressions: Nausea Body aches Condition: Improved Disposition: HOME OR SELF-CARE Referrals: ESEQUIEL WOOTEN PA-C (PCP) Patient Instructions: Dehydration (ED) Additional Instructions: Please drink plenty of water. Please follow-up with your family doctor in the next 2 days. Please return promptly if you develop worsening symptoms, difficulty maintaining hydration, develop high fevers, shortness breath, chest pain, abdominal pain. Problem Qualifiers CONNIE PORTILLO DO Jul 12, 2018 10:36
[2018-07-12] MEDS ORDERED: NS(*) 0.9% 1000 ML BAG 1,000 ML IV ONE (10:46)
[2018-07-12] MEDS ORDERED: ONDANSETRON 4 MG/2 ML VIAL IVP ONE (10:50)
[2018-07-12 11:06] LABS: PLATELET COUNT, AUTOMATED 177 K/uL (150-450)
[2018-07-12 11:11] LABS: INR 1.1
--- NOTE | 2018-07-12 12:08 | RADIOLOGY IMAGING REPORT ---
[place] [facility] [place]IENT NAME: Ambar Rodriguez : 1940 MR: [id number] V: [id number] EXAM DATE: ORDERING PHYSICIAN: CONNIE PORTILLO TECHNOLOGIST: Location: [facility] - [place] Patient: Ambar Rodriguez : 1940 Visit/Account:[id number] Date of Sevice: 07/12/2018 EXAMINATION: Chest radiographs 2 views HISTORY: Shortness of breath, chest pain. COMPARISON: 01/01/2018. FINDINGS: Frontal and lateral views of the chest are submitted. Lines/tubes: Coronary artery stents. Lungs/pleura: No focal consolidation or pleural effusion. Pulmonary vascularity is within normal martinez its. No evidence of pneumothorax. Heart: Negative. Mediastinum: Calcified plaque of the thoracic aorta. Bony structures/body wall: Mild degenerative changes in the thoracic spine and shoulders. IMPRESSION: No radiographic evidence of acute cardiopulmonary disease. Report Dictated By: Cade Marte MD at 07/12/2018 12:02 PM Report E-Signed By: Cade Marte MD at 07/12/2018 12:04 PM WSN:[id number]
[2018-07-12] MEDS ORDERED: ACETAMINOPHEN 500 MG TAB PO ONE (12:20)
--- NOTE | 2018-07-12 12:55 | RADIOLOGY IMAGING REPORT ---
FACILITY: [facility] PATIENT NAME: Ambar Rodriguez : 1940 MR: [id number] V: [id number] EXAM DATE: ORDERING PHYSICIAN: CONNIE PORTILLO TECHNOLOGIST: Location: [facility] Patient: Ambar Rodriguez : 1940 Visit/Account:[id number] Date of Sevice: 07/12/2018 INDICATION: pain. DATE: 07/12/2018 12:49 PM. TECHNIQUE: HUMERUS RIGHT COMPARISON: Chest radiograph January 01, 2018 FINDINGS: Bony alignment is normal without evidence of fracture or dislocation. There may be a small effusion with calcific debris or crystals at the AC joint. The area of raised cortex at the mid hum eral shaft corresponds to the deltoid insertion. IMPRESSION: No acute osseous abnormality. Report Dictated By: Heather Bowling MD at 07/12/2018 12:49 PM Report E-Signed By: Heather Bowling MD at 07/12/2018 12:52 PM WSN:[email or web address]
[2018-07-12 13:00] VITALS: BP 210/93
== END 2018-07-12 13:21 | disposition home or self-care (01) ==
LOC: ER 10:38
DX: E86.0 Dehydration (principal); R11.0 Nausea
CPT/HCPCS: 71046; 73060; 83605; 83690; 85025; 85610; 85730; 87502; 96361; 96374; 99284; A9270; J2405; J7030; 82040; 82247; 82310; 82374; 82435; 82565; 82947; 84075; 84132; 84155; 84295; 84450; 84460; 84520

== ENCOUNTER 2018-11-12 15:59 | Emergency (ER) | payer MEDICARE, MEDICAID ==
[2017-10-10 10:05] VITALS: Wt 84.4 kg
[~2018-11-12 15:59] MED LIST changes: -AMLO-113 PO; +AMLO-127 PO
--- NOTE | 2018-11-12 16:02 | ER Report ---
History and Physical Time Seen By MD: 16:01 HPI/ROS CHIEF COMPLAINT: Right hip and knee pain HISTORY OF PRESENT ILLNESS: Patient is a 78-year-old female here with complaints of right hip and right shoulder pain. Patient reportedly had a fall several weeks ago has had persistent numbness, pain since time of fall. This morning p atient reports worsening pain in the right hip prompting evaluation. Patient is neurovascularly intact at time of evaluation, able to bear weight. Denies recurrent trauma REVIEW OF SYSTEMS: Constitutional: No fever, no chills. Eyes: No discharge. ENT: No sore throat. Cardiovascular: No chest pain, no palpitations. Respiratory: No cough, no shortness of breath. Gastrointestinal: No abdominal pain, no vomiting. Genitourinary: No hematuria. Musculoskeletal: Right hip and right shoulder pain Skin: No rashes. Neurological: No headache. Neurovascular exam intact Allergies: Coded Allergies: morphine (Verified Allergy, Unknown, HIVES, 11/12/18) codeine (Verified Adverse Reaction, Unknown, NAUSEA/VOMITING, 11/12/18) Home Meds Active Scripts Tramadol Hcl (TRAMADOL HCL) 50 Mg Tablet, 50 MG PO Q6H PRN for PAIN, #10 TAB 0 Refills Prov:CONNIE PORTILLO DO 11/12/18 Gabapentin (GABAPENTIN) 300 Mg Capsule, 300 MG PO TID for 30 Days, CAPSULE Prov:VASU CURTIS MD 10/11/17 Insulin Glargine 100 Un/Ml Pen (LANTUS SOLOSTAR PEN) 100 Unit/1 Ml Insuln.pen, 15 UNIT SUBQ BID for 30 Days, Prov:VASU CURTIS MD 10/11/17 Reported Medications Insulin Lispro 200 UN/ML PEN (Humalog Kwikpen) 200 Unit/1 Ml Insuln.pen, 18 UNITS SQ TID 10/06/17 Oxygen (OXYGEN) Inha, 0 INH, L 06/21/15 Nitroglycerin (NITROSTAT) 0.4 Mg Subl, 0.4 MG SL PRN, TAB 06/21/15 Aspirin (ASPIR 81) 81 Mg Tablet.dr, 81 MG PO QDAY, TAB 06/21/15 Pravastatin Sodium (PRAVASTATIN SODIUM) 20 Mg Tablet, 20 MG PO HS, TAB 06/21/15 Pantoprazole Sodium (PANTOPRAZOLE SODIUM) 40 Mg Tablet.dr, 40 MG PO QDAY, TAB.SR 06/21/15 Metoprolol Tartrate (METOPROLOL TARTRATE) 100 Mg Tablet, 50 MG PO BID, TAB 06/21/15 Discontinued Reported Medications Sulfamethoxazole/Trimet 800-160 Mg Tab (BACTRIM DS TABLET) 1 Each Tablet, 1 TAB PO Q12H, #15 TAB 10/11/17 Amlodipine Besylate (AMLODIPINE BESYLATE) 10 Mg Tablet, 1 TAB PO QDAY, TAB 06/21/15 Discontinued Scripts Cephalexin 500 Mg Tab (KEFLEX 500 MG TAB) 500 Mg Tablet, 500 MG PO Q6H, #28 TAB Prov:YARI FLORES APRN-Comfort 01/01/18 Ondansetron (ZOFRAN ODT) 4 Mg Tab.rapdis, 4 MG PO Q6H PRN for NAUSEA/VOMITING, #30 TAB.DORA Prov:YARI FLORES APRN-Comfort 01/01/18 Tamsulosin Hcl (TAMSULOSIN HCL) 0.4 Mg Cap.er.24h, 0.4 MG PO QDAY for 30 Days, Prov:VASU CURTIS MD 10/11/17 Hx Smoking: No Smoking Status: Former Smoker Exposure to Second Hand Smoke?: Yes Hx Substance Use Disorder: No Hx Alcohol Use: Yes (none currently) Constitutional Vital Sign - Last 24 Hours 11/12/18 11/12/18 11/12/18 11/12/18 16:07 16:12 16:15 16:30 Temp 98.5 Pulse 70 68 67 Resp 16 B/P (MAP) 196/77 179/100 (126) Pulse Ox 84 98 96 O2 Delivery Room Air O2 Flow Rate 2.0 11/12/18 11/12/18 11/12/18 11/12/18 16:45 17:00 17:15 17:30 Pulse 70 68 66 B/P (MAP) 182/89 (120) 158/72 (100) Pulse Ox 98 99 99 98 Physical Exam General Appearance: The patient is alert, has no immediate need for airway protection and no signs of toxicity. No acute distress Eyes: Pupils equal and round no pallor or injection. ENT, Mouth: Mucous membranes are moist. Respiratory: There are no retractions, lungs are clear to auscultation. Cardiovascular: Regular rate and rhythm. Gastrointestinal: Abdomen is soft and non tender, no masses, bowel sounds normal. Neurological: Neurovascular exam intact in distal extremities. No focal neurological findings at time of evaluation Skin: Warm and dry, no rashes. Musculoskeletal: Neck is supple non tender. Tenderness with range of motion of the right shoulder and tenderness on palpation of the right anterior hip. [ ] DIFFERENTIAL DIAGNOSIS: After history and physical exam differential diagnosis was considered for fracture, contusion, arthritis, degenerative changes Medical Decision Making EKG/Imaging Imaging Location: [facility] Patient: Ambar Rodriguez : 1940 Visit/Account:[id number] Date of Sevice: 11/12/2018 Exam type: HIP RIGHT History: Pain in right shoulder and right hip Comparison: April 28, 2013. Findings: Two views of the right hip demonstrates no evidence of acute fracture or dislocation. There are surgical clips in the right inguinal region. There are moderate spondylotic changes the visualized lower lumbar spine. IMPRESSION: 1. No evidence of acute fracture-dislocation involving the right hip Location: [facility] Patient: Ambar Rodriguez : 1940 Visit/Account:[id number] Date of Sevice: 11/12/2018 Exam type: SHOULDER MIN 2 VIEWS RIGHT History: pain Comparison: None Findings: Four views of the right shoulder demonstrates no evidence of acute fracture. There appears to be mild anterior inferior subluxation of the right humeral head with respect to the glenoid there are moderate degenerative changes of the right AC joint. IMPRESSION: 1. Suggestion of mild anterior inferior subluxation of the right humeral head with respect to the glenoid. No fracture identified ED Course/Re-evaluation ED Course Patient is a 78-year-old female with reports of chronic pain in hands, shoulders, hips bilaterally with recent worsening pain in the right hip starting this morning, persistent right shoulder pain with range of motion. Patient denies recurrent trauma but did have a fall several weeks prior. There is no obvious bony deformity, neurovascular exam is intact in all extremities. X-ray imaging was completed of the right shoulder and right hip with no acute findings of fracture. Recommend a follow-up with physical therapy, possible rheumatologic evaluation for ongoing arthritis. Patient was given prescription for tramadol, recommend NSAIDs for inflammation. Return precautions were provided. Decision to Disposition Date: Nov 12, 2018 Decision to Disposition Time: 17:35 Depart Departure Latest Vital Signs Vital Signs Date Time Temp Pulse Resp B/P (MAP) Pulse Ox O2 Delivery O2 Flow Rate FiO2 11/12/18 17:30 66 158/72 (100) 98 11/12/18 16:12 2.0 11/12/18 16:07 98.5 16 Room Air Impression: Primary Impression: Hip arthritis Additional Impression: Shoulder pain Condition: Improved Disposition: HOME OR SELF-CARE Referrals: KAMRAN ALANIS MD (PCP) New Scripts Tramadol Hcl (TRAMADOL HCL) 50 Mg Tablet 50 MG PO Q6H PRN for PAIN, #10 TAB 0 Refills Prov: CONNIE PORTILLO DO 11/12/18 Patient Instructions: Arthritis (ED) Additional Instructions: Please consider following up with physical therapy, rheumatology if indicated for further evaluation of your arthritis. Please consider taking Tylenol or ibuprofen as needed for pain control. You may take 1 tramadol every 6-8 hours as needed for breakthrough pain. Please follow-up with your primary care provider for further treatment and evaluation. No acute fractures were identified on x- ray imaging. Please consider mobility training or low impact exercise such as water aerobics. Problem Qualifiers CONNIE PORTILLO DO Nov 12, 2018 16:02
--- NOTE | 2018-11-12 17:13 | RADIOLOGY IMAGING REPORT ---
FACILITY: [facility] - [place] PATIENT NAME: Ambar Rodriguez : 1940 MR: [id number] V: [id number] EXAM DATE: [id number] ORDERING PHYSICIAN: CONNIE PORTILLO TECHNOLOGIST: Location: [facility] - [place] Patient: Ambar Rodriguez : 1940 Visit/Account:[id number] Date of Sevice: 11/12/2018 Exam type: HIP RIGHT History: Pain in right shoulder and right hip Comparison: April 28, 2013. Findings: Two views of the right hip demonstrates no evidence of acute fracture or dislocation. There are surg ical clips in the right inguinal region. There are moderate spondylotic changes the visualized lower lumbar spine. IMPRESSION: 1. No evidence of acute fracture-dislocation involving the right hip Report Dictated By: Lydia Schultz MD at 11/12/2018 5:08 PM Report E-Signed By: Lydia Schultz MD at 11/12/2018 5:09 PM WSN:[email or web address]
--- NOTE | 2018-11-12 17:16 | RADIOLOGY IMAGING REPORT ---
FACILITY: [facility] - [place] PATIENT NAME: Ambar Rodriguez : 1940 MR: [id number] V: [id number] EXAM DATE: [id number] ORDERING PHYSICIAN: CONNIE PORTILLO TECHNOLOGIST: Location: [facility] [place] Patient: Ambar Rodriguez : 1940 Visit/Account:[id number] Date of Sevice: 11/12/2018 Exam type: SHOULDER MIN 2 VIEWS RIGHT History: pain Comparison: None Findings: Four views of the right shoulder demonstrates no evidence of acute fracture. There appears to be mil d anterior inferior subluxation of the right humeral head with respect to the glenoid there are moder ate degenerative changes of the right AC joint. IMPRESSION: 1. Suggestion of mild anterior inferior subluxation of the right humeral head with respect to the gl enoid. No fracture identified Moderate right AC joint degenerative changes Report Dictated By: Lydia Schultz MD at 11/12/2018 5:09 PM Report E-Signed By: Lydia Schultz MD at 11/12/2018 5:11 PM WSN:[email or web address]
[2018-11-12 17:30] VITALS: BP 158/72
[2018-11-12] MEDS ORDERED: TRAM-420 PO (17:41)
== END 2018-11-12 18:05 | disposition home or self-care (01) ==
LOC: ER 16:10
DX: M16.11 Unilateral primary osteoarthritis, right hip (principal); M25.511 Pain in right shoulder
CPT/HCPCS: 99284

== ENCOUNTER 2019-01-15 10:33 | Inpatient (IN) | payer MEDICARE, MEDICAID ==
[2017-10-10 10:05] VITALS: Ht 162.6 cm; Wt 87.5 kg
[~2019-01-15] VITALS: Ht 162.6 cm; Wt 87.5 kg
[2019-01-15] MEDS ORDERED: ASPIRIN 81 MG CHEW PO ONE (10:50)
[2019-01-15] MEDS ORDERED: SERT-184 PO (11:04)
[2019-01-15] MEDS ORDERED: INSU100I10 SQ (11:04)
--- NOTE | 2019-01-15 11:05 | EKG ---
FACILITY: [facility] - [place] PATIENT NAME: FAHAD MORENO : [id number] MR: [id number] V: [id number] EXAM DATE: ORDERING PHYSICIAN: MARIA C ALEXANDRE TECHNOLOGIST: CARYN Guillory Reason : CP Blood Pressure : / mmHG Vent. Rate : 063 BPM Atrial Rate : 063 BPM P-R Int : 194 ms QRS Dur : 088 ms QT Int : 446 ms P-R-T Axes : 087 -16 066 degrees QTc Int : 456 ms Normal sinus rhythm Normal ECG When compared with ECG of 01-JAN-2018 15:22, No significant change was found Confirmed by Setfano Waters ([id number]) on 01/15/2019 7:46:53 PM Referred By: Confirmed By:Stefano Lopez
[2019-01-15 11:07] LABS: PLATELET COUNT, AUTOMATED 203 K/uL (150-450)
--- NOTE | 2019-01-15 11:14 | ER Report ---
History and Physical Time Seen By MD: 10:50 Hx. of Stated Complaint: patient and patients family state that the patient has been having leg pain, leg swelling and chest pain that started last night; patient fell a few months ago and states that she has right shoulder pain HPI/ROS CHIEF COMPLAINT: Chest pain and leg swelling HISTORY OF PRESENT ILLNESS: 78-year-old female comes emergency Department today with several days of noting bilateral lower extremity pitting edema. Patient has also had intermittent chest discomfort. She has a long history of chronic pain complaints including arthritic shoulders up with this volume lower 70s reportedly is new. Patient denies nausea vomiting diarrhea fever chills chest pain is dull and achy episodic comes and goes no loosening relieving factors no history of cardiac issues. Patient is also had many many months of a dry nonproductive cough and seen multiple times by various physicians no known etiology or diagnosis REVIEW OF SYSTEMS: Respiratory: Cough no shortness of breath Cardiovascular: Chest pain lower extremity swelling Gastrointestinal: No vomiting, no abdominal pain. Musculoskeletal: No back pain. Remainder of the 14 system rev: Yes Allergies: Coded Allergies: morphine (Verified Allergy, Unknown, HIVES, 11/12/18) codeine (Verified Adverse Reaction, Unknown, NAUSEA/VOMITING, 11/12/18) Home Meds Active Scripts Gabapentin (GABAPENTIN) 300 Mg Capsule, 300 MG PO TID for 30 Days, CAPSULE Prov:VASU CURTIS MD 10/11/17 Reported Medications Insulin Glargine,Hum.rec.anlog (Basaglar Kwikpen U-100) 100 Unit/Ml (3 Ml) Insuln.pen, 30 UNIT SQ 01/15/19 Sertraline Hcl (SERTRALINE HCL) 50 Mg Tablet, 1 TAB PO QDAY, TAB 01/15/19 Insulin Lispro 200 UN/ML PEN (Humalog Kwikpen) 200 Unit/1 Ml Insuln.pen, 18 UNITS SQ TID 10/06/17 Oxygen (OXYGEN) Inha, 0 INH, L 06/21/15 Nitroglycerin (NITROSTAT) 0.4 Mg Subl, 0.4 MG SL PRN, TAB 06/21/15 Aspirin (ASPIR 81) 81 Mg Tablet.dr, 81 MG PO QDAY, TAB 06/21/15 Pravastatin Sodium (PRAVASTATIN SODIUM) 20 Mg Tablet, 20 MG PO HS, TAB 15 Pantoprazole Sodium (PANTOPRAZOLE SODIUM) 40 Mg Tablet.dr, 40 MG PO QDAY, TAB.SR 06/21/15 Metoprolol Tartrate (METOPROLOL TARTRATE) 100 Mg Tablet, 50 MG PO BID, TAB 06/21/15 Discontinued Scripts Tramadol Hcl (TRAMADOL HCL) 50 Mg Tablet, 50 MG PO Q6H PRN for PAIN, #10 TAB 0 Refills Prov:CONNIE PORTILLO DO 11/12/18 Insulin Glargine 100 Un/Ml Pen (LANTUS SOLOSTAR PEN) 100 Unit/1 Ml Insuln.pen, 15 UNIT SUBQ BID for 30 Days, Prov:VASU CURTIS MD 10/11/17 Reviewed Nurses Notes: Yes Old Medical Records Reviewed: Yes Hx Smoking: No Smoking Status: Former Smoker Exposure to Second Hand Smoke?: Yes Hx Substance Use Disorder: No Hx Alcohol Use: Yes (none currently) Constitutional Vital Sign - Last 24 Hours 01/15/19 01/15/19 01/15/19 01/15/19 10:41 10:41 10:45 10:48 Temp 98.7 Pulse 64 Resp 18 B/P (MAP) 217/145 217/145 (169) 212/122 (152) Pulse Ox 97 O2 Delivery Nasal Cannula O2 Flow Rate 2.0 01/15/19 01/15/19 01/15/19 01/15/19 11:00 11:03 11:21 11:56 Pulse 58 Resp 11 B/P (MAP) 206/87 (126) 168/85 (112) 189/109 (135) Pulse Ox 98 01/15/19 01/15/19 01/15/19 01/15/19 12:00 12:03 12:08 12:12 Pulse 60 59 Resp 12 12 12 B/P (MAP) 193/83 (119) Pulse Ox 98 99 99 01/15/19 01/15/19 01/15/19 01/15/19 12:30 12:38 12:43 13:00 Pulse 57 58 Resp 8 6 B/P (MAP) 186/86 (119) 197/94 (128) Pulse Ox 93 100 01/15/19 13:13 Pulse 60 Resp 10 Pulse Ox 97 Physical Exam General Appearance: [The patient is alert, has no immediate need for airway protection and no current signs of toxicity.] [ ] Eyes: Pupils equal and round no injection. Respiratory: Chest is non tender, lungs are clear to auscultation. Cardiac: regular rate and rhythm [ ] Gastrointestinal: Abdomen is soft and non tender, no masses, bowel sounds normal. Musculoskeletal: Right shoulder pain with range of motion consistent with baseline neurovascular intact Neck is supple and non tender. Extremities have full range of motion and are non tender. Skin: +1 to +2 pitting edema bilaterally lower extremity [ ] DIFFERENTIAL DIAGNOSIS: After history and physical exam differential diagnosis was considered for CHF COPD cardiac issues DVT pulmonary emboli Medical Decision Making Data Points Result Diagram: 01/15/19 1053 01/15/19 1053 Laboratory Hematology Test 01/15/19 10:53 Red Blood Count 4.85 M/uL (4.17-5.56) Mean Corpuscular Volume 83.8 fL (80.0-96.0) Mean Corpuscular Hemoglobin 27.0 pg (26.0-33.0) Mean Corpuscular Hemoglobin Concent 32.2 g/dL (32.0-36.0) Red Cell Distribution Width 13.9 % (11.5-14.5) Mean Platelet Volume 9.3 fL (7.2-11.1) Neutrophils (%) (Auto) 50.0 % (39.4-72.5) Lymphocytes (%) (Auto) 36.0 % (17.6-49.6) Monocytes (%) (Auto) 8.3 % (4.1-12.4) Eosinophils (%) (Auto) 5.0 % (0.4-6.7) Basophils (%) (Auto) 0.7 % (0.3-1.4) Nucleated RBC Relative Count (auto) 0.2 /100WBC Neutrophils # (Auto) 2.8 K/uL (2.0-7.4) Lymphocytes # (Auto) 2.0 K/uL (1.3-3.6) Monocytes # (Auto) 0.5 K/uL (0.3-1.0) Eosinophils # (Auto) 0.3 K/uL (0.0-0.5) Basophils # (Auto) 0.0 K/uL (0.0-0.1) Nucleated RBC Absolute Count (auto) 0.01 K/uL D-Dimer Quantitative (PE/DVT) 0.82 ug/ml (0-0.50) Sodium Level 142 mmol/L (137-145) Potassium Level 4.0 mmol/L (3.5-5.0) Chloride Level 105 mmol/L (98-107) Carbon Dioxide Level 33 mmol/L (22-31) Blood Urea Nitrogen 14 mg/dl (7-18) Creatinine 0.70 mg/dl (0.52-1.04) Glomerular Filtration Rate Calc > 60.0 Random Glucose 213 mg/dl (75-110) Calcium Level 9.2 mg/dl (8.4-10.2) Total Bilirubin 0.3 mg/dl (0.2-1.3) Aspartate Amino Transf (AST/SGOT) 24 U/L (0-35) Alanine Aminotransferase (ALT/SGPT) 17 U/L (0-56) Alkaline Phosphatase 105 U/L (0-126) Troponin I < 0.012 ng/ml B-Type Natriuretic Peptide 372 pg/ml (0-100) Total Protein 7.4 g/dl (6.3-8.2) Albumin 3.6 g/dl (3.5-5.0) Chemistry Test 01/15/19 10:53 White Blood Count 5.7 k/uL (4.5-11.0) Red Blood Count 4.85 M/uL (4.17-5.56) Hemoglobin 13.1 g/dL (12.0-16.0) Hematocrit 40.7 % (34.0-47.0) Mean Corpuscular Volume 83.8 fL (80.0-96.0) Mean Corpuscular Hemoglobin 27.0 pg (26.0-33.0) Mean Corpuscular Hemoglobin Concent 32.2 g/dL (32.0-36.0) Red Cell Distribution Width 13.9 % (11.5-14.5) Platelet Count 203 K/uL (150-450) Mean Platelet Volume 9.3 fL (7.2-11.1) Neutrophils (%) (Auto) 50.0 % (39.4-72.5) Lymphocytes (%) (Auto) 36.0 % (17.6-49.6) Monocytes (%) (Auto) 8.3 % (4.1-12.4) Eosinophils (%) (Auto) 5.0 % (0.4-6.7) Basophils (%) (Auto) 0.7 % (0.3-1.4) Nucleated RBC Relative Count (auto) 0.2 /100WBC Neutrophils # (Auto) 2.8 K/uL (2.0-7.4) Lymphocytes # (Auto) 2.0 K/uL (1.3-3.6) Monocytes # (Auto) 0.5 K/uL (0.3-1.0) Eosinophils # (Auto) 0.3 K/uL (0.0-0.5) Basophils # (Auto) 0.0 K/uL (0.0-0.1) Nucleated RBC Absolute Count (auto) 0.01 K/uL D-Dimer Quantitative (PE/DVT) 0.82 ug/ml (0-0.50) Glomerular Filtration Rate Calc > 60.0 Calcium Level 9.2 mg/dl (8.4-10.2) Total Bilirubin 0.3 mg/dl (0.2-1.3) Aspartate Amino Transf (AST/SGOT) 24 U/L (0-35) Alanine Aminotransferase (ALT/SGPT) 17 U/L (0-56) Alkaline Phosphatase 105 U/L (0-126) Troponin I < 0.012 ng/ml B-Type Natriuretic Peptide 372 pg/ml (0-100) Total Protein 7.4 g/dl (6.3-8.2) Albumin 3.6 g/dl (3.5-5.0) Coagulation Test 01/15/19 10:53 D-Dimer Quantitative (PE/DVT) 0.82 ug/ml ED Course/Re-evaluation ED Course ED course of a sexual female with bilateral lower extremity swelling and mild nonspecific chest discomfort long history of dementia and other various comorb idities to this leg swelling is new evaluation does show +1 to +2 pitting edema BNP greater than 370 chest x-ray was negative CT scan and she'll due to an elevated exam was also negative. Rest of the workup including bilateral lower extremity Dopplers were also negative this is new-onset CHF. Primary care outpatient echocardiogram to be performed Decision to Disposition Date: January 15, 2019 Decision to Disposition Time: 13:45 Depart Departure Latest Vital Signs Vital Signs Date Time Temp Pulse Resp B/P (MAP) Pulse Ox O2 Delivery O2 Flow Rate FiO2 01/15/19 13:13 60 10 97 01/15/19 13:00 197/94 (128) 01/15/19 10:41 98.7 Nasal Cannula 01/15/19 10:41 2.0 Impression: Primary Impression: Congestive heart failure Condition: Improved Disposition: HOME OR SELF-CARE Referrals: KAMRAN ALANIS MD (PCP) 2 Days Departure Forms: Medications Reconciliation, Patient Portal Information, ER Transition Record Patient Instructions: Congestive Heart Failure Zones MARIA C ALEXANDRE MD January 15, 2019 11:14
[2019-01-15] MEDS ORDERED: IOPAMIDOL 76% 150 ML INFUS BTL 150 ML ONE (11:36)
[2019-01-15] MEDS ORDERED: NS(*) 0.9% 50 ML BAG 50 ML ONE (11:37)
[2019-01-15] MEDS ORDERED: KETOROLAC 30 MG/ML VIAL IVP ONE (12:05)
--- NOTE | 2019-01-15 12:15 | RADIOLOGY IMAGING REPORT ---
FACILITY: [facility] - [place] PATIENT NAME: Ambar Rodriguez : 1940 MR: [id number] V: [id number] EXAM DATE: ORDERING PHYSICIAN: MARIA C ALEXANDRE TECHNOLOGIST: Location: [facility] - [place] Patient: Ambar Rodriguez : 1940 Visit/Account:[id number] Date of Sevice: 01/15/2019 Technique: CHEST PA LAT HISTORY: Chest pain Comparison studies: 07/12/2018 FINDINGS: No acute airspace consolidation. No pleural effusion. The cardiac silhouette is unchanged . IMPRESSION: 1. No acute cardiopulmonary process Report Dictated By: Eriberto Ann DO at 01/15/2019 12:02 PM Report E-Signed By: Eriberto Ann DO at 01/15/2019 12:11 PM WSN:[id number]
--- NOTE | 2019-01-15 12:51 | RADIOLOGY IMAGING REPORT ---
FACILITY: [facility] - [place] PATIENT NAME: Ambar Rodriguez : 1940 MR: [id number] V: [id number] EXAM DATE: ORDERING PHYSICIAN: MARIA C ALEXANDRE TECHNOLOGIST: Location: [facility] Patient: Ambar Rodriguez : 1940 Visit/Account:[id number] Date of Sevice: 01/15/2019 CT CTA CHEST W & W/O CON HISTORY: Renal cell carcinoma ADDITIONAL HISTORY: None. TECHNIQUE: CTA chest without and with contrast. 3D coronal slab MIPs and 2D reconstructions in the coronal and sagittal planes were also created. CT renal mass protocol is followed. One of the followi dose optimization techniques was utilized in the performance of this exam: automated exposure cont rol; adjustment of the mA and/or kv according to patient size; or use of iterative reconstruction cristin hnique. Specific details can be referenced in the facility's radiology CT exam operational policy. CONTRAST: 120 cc of Isovue-370 COMPARISON: None. FINDINGS: Vessels: No acute filling defect within the main, lobar or segmental pulmonary arteries. Extensive c alcification of the coronary arteries. Lower neck: Enlarged heterogeneous thyroid with calcifications. Heart and pericardium: Negative Mediastinum/hilum/lymph nodes: Calcified subcarinal lymph nodes. Lungs/pleura: Negative. Visualized upper abdomen: Cholecystectomy. Bones/soft tissues: Negative. Other findings: None significant IMPRESSION: 1. No acute filling defect within the pulmonary arteries. 2. No other acute chest process identified. 3. Severe calcification of the coronary arteries. Report Dictated By: Brandon Gallagher MD at 01/15/2019 12:10 PM Report E-Signed By: Brandon Gallagher MD at 01/15/2019 12:46 PM WSN:[id number]
--- NOTE | 2019-01-15 13:18 | RADIOLOGY IMAGING REPORT ---
FACILITY: [facility] PATIENT NAME: Ambar Rodriguez : 1940 MR: [id number] V: [id number] EXAM DATE: ORDERING PHYSICIAN: MARIA C ALEXANDRE TECHNOLOGIST: Location: [facility] - [place] Patient: Ambar Rodriguez : 1940 Visit/Account:[id number] Date of Sevice: 01/15/2019 US VENOGRAM EXTREMITY, BILATERAL HISTORY: swelling ADDITIONAL Bilateral lower extremity duplex venous ultrasound Comparison: None Available Findings: Duplex Doppler and color flow imaging was performed. The bilateral common femoral, femoral , and popliteal veins are all patent and compressible with normal Doppler wave forms. There are norm al responses to augmentation. The visualized calf veins are patent. Impression: 1. No evidence of deep venous thrombosis of the bilateral lower extremities. Report Dictated By: Dg Gonsalez MD at 01/15/2019 1:12 PM Report E-Signed By: Dg Gonsalez MD at 01/15/2019 1:13 PM WSN:[id number]
--- NOTE | 2019-01-15 13:37 | RADIOLOGY IMAGING REPORT ---
FACILITY: [facility] PATIENT NAME: Ambar Rodriguez : 1940 MR: [id number] V: [id number] EXAM DATE: ORDERING PHYSICIAN: MARIA C ALEXANDRE TECHNOLOGIST: Location: [facility] Patient: Ambar Rodriguez : 1940 Visit/Account:[id number] Date of Sevice: 01/15/2019 Exam type: KUB SINGLE VIEW ABDOMEN History: constipation Comparison: January 26, 2017. Findings: There is a nonspecific bowel gas pattern present. There is no gross evidence organomegaly. There ar e surgical clips in right upper quadrant of the abdomen. Contrast is seen in the nondilated renal co llecting systems ureters and bladder from today's CTA of the chest. Surgical clips also seen in the right inguinal region IMPRESSION: 1. Nonspecific bowel gas pattern Report Dictated By: Lydia Schultz MD at 01/15/2019 1:32 PM Report E-Signed By: Lydia Schultz MD at 01/15/2019 1:33 PM WSN:[email or web address]
[2019-01-15] MEDS ORDERED: cloNIDine HCL 0.1 MG TAB PO ONE (14:00)
[2019-01-15] MEDS ORDERED: NITROGLYCERIN 5 MG/ML IV PRN (14:05)
[2019-01-15] MEDS ORDERED: NITROGLYCERIN 0.4 MG SUBL SL ONE (14:20)
[2019-01-15 16:22] VITALS: BP 176/86
[2019-01-15] MEDS ORDERED: FLUSH 10 ML SYR IVP PRN (17:25)
[2019-01-15] MEDS ORDERED: LOSARTAN POTASSIUM 50 MG TAB PO ONE (18:00)
[2019-01-15 19:10] VITALS: BP 160/104
--- NOTE | 2019-01-15 19:30 | History & Physical ---
History of Present Illness Chief Complaint chest discomfort History of Present Illness 78F presented with chest discomfort. PMHx significant for HTN, COPD on 2L baseline, DM, HFpEF. Was seen and cleared in ER for cardiac cause of chest pain, work up for CHF was recommended and she was to be discharged to follow up with PCP. BP remained elevated and after treatment which transiently lowered it again rebounded to hypertensive urgency levels. She was admitted fro BP control. History Problems: (1) Type 2 diabetes mellitus Status: Chronic (2) HTN (hypertension) Status: Chronic (3) Fibromyalgia Status: Chronic (4) Diastolic heart failure Status: Chronic Home Meds Active Scripts Gabapentin (GABAPENTIN) 300 Mg Capsule, 300 MG PO TID for 30 Days, CAPSULE Prov:VASU CURTIS MD 10/11/17 Reported Medications Insulin Glargine,Hum.rec.anlog (Basaglar Kwikpen U-100) 100 Unit/Ml (3 Ml) Insuln.pen, 30 UNIT SQ 01/15/19 Sertraline Hcl (SERTRALINE HCL) 50 Mg Tablet, 1 TAB PO QDAY, TAB 01/15/19 Insulin Lispro 200 UN/ML PEN (Humalog Kwikpen) 200 Unit/1 Ml Insuln.pen, 18 UNITS SQ TID 10/06/17 Oxygen (OXYGEN) Inha, 0 INH, L 06/21/15 Nitroglycerin (NITROSTAT) 0.4 Mg Subl, 0.4 MG SL PRN, TAB 06/21/15 Aspirin (ASPIR 81) 81 Mg Tablet.dr, 81 MG PO QDAY, TAB 06/21/15 Pravastatin Sodium (PRAVASTATIN SODIUM) 20 Mg Tablet, 20 MG PO HS, TAB 06/21/15 Pantoprazole Sodium (PANTOPRAZOLE SODIUM) 40 Mg Tablet.dr, 40 MG PO QDAY, TAB.SR 06/21/15 Metoprolol Tartrate (METOPROLOL TARTRATE) 100 Mg Tablet, 50 MG PO BID, TAB 06/21/15 Discontinued Scripts Tramadol Hcl (TRAMADOL HCL) 50 Mg Tablet, 50 MG PO Q6H PRN for PAIN, #10 TAB 0 Refills Prov:CONNIE PORTILLO DO 11/12/18 Insulin Glargine 100 Un/Ml Pen (LANTUS SOLOSTAR PEN) 100 Unit/1 Ml Insuln.pen, 15 UNIT SUBQ BID for 30 Days, Prov:VASU CURTIS MD 10/11/17 Allergies: Coded Allergies: morphine (Verified Allergy, Unknown, HIVES, 11/12/18) codeine (Verified Adverse Reaction, Unknown, NAUSEA/VOMITING, 11/12/18) Patient History: FH: diabetes mellitus FATHER, , Age:56 MOTHER, BROTHER OR SISTER CHILD FH: hypertension FATHER, , Age:56 MOTHER, BROTHER OR SISTER CHILD CHILD Gangrene FATHER, , Age:56 Hx Smoking: Yes Smoking Status: Former Smoker Exposure to Second Hand Smoke?: Yes Caffeine Intake: Coffee, Soda Caffeine/Cups Per Day: 2-3 Hx Alcohol Use: No Hx Substance Use Disorder: No Social Drug Use: Former Review of Systems Cardiovascular: Other (orthopnea) Exam Vital Signs Vital Signs Date Time Temp Pulse Resp B/P (MAP) Pulse Ox O2 Delivery O2 Flow Rate FiO2 01/15/19 19:10 98.1 66 16 160/104 (122) 96 Nasal Cannula 2.0 General Appearance: Alert, Awake, No Acute Distress, Afebrile Neuro: No Gross deficits ENT: Normal Cardiovascular: Normal Rhythm & Peripheral Pulses Respiratory: Other (decreased breathsounds) GI: Abd Soft and Non-Tender Musculoskeletal: No Weakness/Pain Extremities: Soft and Non Tender, Warm, Pulses, Perfused, Edema (trace pitting to mid painting) Medical Decision Making Data Points Result Diagram: 01/15/19 1053 01/15/19 1053 Assessment and Plan Problems: (1) Hypertensive urgency Assessment & Plan: She is only on metoprolol as outpatient. Previous cough with LORNA, given DM will start ARB in addition to metoprolol and possible dis continuation of metoprolol as no obvious indication other than HTN. Troponin were negative in ER, EKG no acute ST changes. (2) Diastolic heart failure Status: Chronic Assessment & Plan: Per review previous diagnosis of HFpEF. No immediate indication for diuresis, appears stable. (3) Type 2 diabetes mellitus Status: Chronic Assessment & Plan: On long acting insulin 30U and mealtime 18U TID. Decreased doses of 15U Lantus and 10U TID with meals started. Monitor ACHS. Venous Thromboembolism Antithrombotics Is Pt On Any Antithrombotics?: Yes Heart Failure Ejection Fraction %: 62 RVSP (mmHg): 28 NYHA Class: I Is Patient on LORNA Inhibitor?: Yes Is Patient on Beta Agus?: Yes Admission Weight: 165 Exam Sepsis Risk: No Definite Risk GROVER PITA JAIN DO January 15, 2019 19:30
[2019-01-15] MEDS: ACETAMINOPHEN 500 MG TAB PO PRN (19:49)
[2019-01-15] MEDS: INSULIN GLARGINE 100 U/ML 3 ML PEN SUBQ SCH (21:03)
[2019-01-15] MEDS: GABAPENTIN 300 MG CAP PO SCH (21:04)
[2019-01-15] MEDS: PRAVASTATIN SOD 20 MG TAB PO SCH (21:04)
[2019-01-15] MEDS: METOPROLOL TART 50 MG TAB PO SCH (21:04)
[2019-01-15 23:35] VITALS: BP 181/83
[2019-01-15 23:39] VITALS: BP 195/80
[2019-01-16] VITALS (13 sets, daily range): BP systolic 161–204; BP diastolic 66–119
[2019-01-16] MEDS: INSULIN HUM LISPRO 100 UN/ML 3 ML VIAL SUBQ SCH ×3 (08:13→16:30)
[2019-01-16] MEDS ORDERED: LOSARTAN POTASSIUM 50 MG TAB PO SCH (09:00)
[2019-01-16] MEDS: ENOXAPARIN 40 MG/0.4ML SYR SC SCH (10:26)
[2019-01-16] MEDS: GABAPENTIN 300 MG CAP PO SCH ×3 (10:26→21:07)
[2019-01-16] MEDS: METOPROLOL TART 50 MG TAB PO SCH ×2 (10:27→21:07)
[2019-01-16] MEDS: SERTRALINE HCL 50 MG TAB PO SCH (10:27)
[2019-01-16] MEDS: PANTOPRAZOLE SOD 40 MG TABEC PO SCH (10:28)
[2019-01-16] MEDS: ASPIRIN 81 MG ENTERIC COATED PO SCH (10:28)
--- NOTE | 2019-01-16 10:42 | Hospitalist Progress Note ---
Subjective Progress Notes Subjective She reports feeling improved. Less dyspnea. Physical Exam Vital Signs Date Time Temp Pulse Resp B/P (MAP) Pulse Ox O2 Delivery O2 Flow Rate FiO2 01/16/19 10:23 70 191/88 (122) 01/16/19 07:30 90 Nasal Cannula 1.0 01/16/19 06:42 97.7 18 Intake and Output 01/16/19 07:00 Intake Total 300 ml Output Total 0 ml Balance 300 ml Intake Oral 300 ml Output Urine Total 0 ml # Voids 5 General Appearance: Alert, Awake Cardiovascular: Other (Regular with systolic murmur) Respiratory: Other (fairly clear) GI: Soft and Non-Tender Extremities: Warm, Perfused, Edema (t) Result Diagram: 01/15/19 1053 01/15/19 1053 Assessment and Plan Problems: (1) Hypertensive urgency Assessment & Plan: She has been only on metoprolol as outpatient. She has had previous cough with LORNA inhibitor. As she has DM we have started ARB (losartan) in addition to the metoprolol. Troponins were negative in ER. EKG no acute ST changes. Will further modify regimen as needed. (2) Diastolic heart failure Status: Chronic Assessment & Plan: On previous echocardiogram from 09/2017. Will re-check echocardiogram to see if any changes. She does not appear to need acute diuresis. Continue to work on BP control. (3) Type 2 diabetes mellitus Status: Chronic Assessment & Plan: On long acting insulin (Lantus) 30units daily and mealtime Humalog 18units TID. We have decreased doses to 15units Lantus daily and Humalog 10units TID with meals. Monitor AC and HS. Heart Failure Ejection Fraction %: 62 RVSP (mmHg): 28 NYHA Class: I Is Patient on LORNA Inhibitor?: Yes Is Patient on Beta Agus?: Yes Admission Weight: 165 Exam Sepsis Risk: No Definite Risk KALYN MADISON MD January 16, 2019 10:42
[2019-01-16] MEDS: INSULIN HUM LISPRO 100 UN/ML 3 ML VIAL SUBQ PRN ×2 (12:27→21:07)
--- NOTE | 2019-01-16 14:15 | Medical Nutrition Therapy ---
Nutrition Anthropometrics Height (Inches): 64.00 Height (Calculated Centimeters: 162.544033 Weight (Pounds): 193 Weight (Calculated Kilograms): 87.543 BMI: 34.18 Jean-Paul Nutrition Score: Adequate Jean-Paul Nutrition Risk Score: 14 Dietary Referral Nutrition Risk Factors: Diff. Swallowing Nutrition Risk Comment: DIFF CHEWING Physical Findings Physical Appearance: Obese BMI 30-39 Skin Appearance Skin Appearance: Edema Edema Location Modifier: Both Edema Location: Lower Extremity Type of Edema: Degree of Edema: 2+ Gastrointestinal Symptoms GI Symtoms: Tube Present: Bowel Sounds: Recent Bowel Pattern: Stool Characteristics: Nutrition/Food History Good Skipped Meals: No Breakfast: 75 Dinner: 100 Nutritional Diagnosis Nutritional Risk Acuity 2: Swallowing Problem Nutritional Risk Acuity 3: Eat/Chew Problem Nutritional Risk Acuity 4: Good Appetite Past Medical History: pnuemonia, CAD, Fibromyalgia, DVT, HTN, DM2 Nutritional Acuity: 2-Moderate Nutrition Diagnosis: Swallowing Difficulties Nutrition Etiology: Physiological Causes Nutrition Problem/Etiology/Sym: Swallowing Difficulties related to physiological causes as evidence by dysphagia, needing assistance with feeding, and dementia. Adjusted Energy Requirement Re: 1473 (HB: 64" 193lb BMI 34.18 AF 1.2) Protein Requirement: 88 (87.78kg x 1g/kg) Fluid Requirement: 1473 (1473cal x 1mL/madelyn) Diet Type: Diabetic Nutrition Intervention: Cont diet as ordered, Encourage intake, Check glucose Nutrition Monitoring & Eval Nutrition Goals: Eat 50-100% Meal, Drink > 1200 cc/day RD Patient Assessment Time: [address] Assessment Type: RD Assessment Patient Nutrition Acuity: 2-Moderate Follow Up Date: January 18, 2019 Nutritional Comment: 01/16 Pt was admitted for chest pain and leg swelling. Pt hx of HTN, COPD, GERD, fibromyalgia, hypercholesterolemia, depression, and breast cancer. Pt is dx with T2DM, BLE 1+ and 2+ edema, hypertensive urgency, diastolic CHF, dementia. Pt is having difficulties swallowing and needs assistance with feeding. Pt has a high BNP of 372, a whole blood glucose ranging from 246-268, and a whole random blood glucose 213. Pt is consuming 75% and 100% of their two meals. Will continue to encourage intake and monitor for change. RIC YEN January 16, 2019 10:53
[2019-01-16] MEDS: ACETAMINOPHEN 500 MG TAB PO PRN (14:24)
--- NOTE | 2019-01-16 16:38 | NUR ---
Blood Glucose of 87 at this time- scheduled 10units Humalog held.
[2019-01-16] MEDS ORDERED: LOSARTAN POTASSIUM 50 MG TAB PO ONE (21:00)
[2019-01-16] MEDS: INSULIN GLARGINE 100 U/ML 3 ML PEN SUBQ SCH (21:07)
[2019-01-16] MEDS: PRAVASTATIN SOD 20 MG TAB PO SCH (21:08)
[2019-01-17] VITALS (9 sets, daily range): BP systolic 148–218; BP diastolic 69–102
[2019-01-17 06:28] LABS: PLATELET COUNT, AUTOMATED 166 K/uL (150-450)
[2019-01-17] MEDS: INSULIN HUM LISPRO 100 UN/ML 3 ML VIAL SUBQ SCH (07:35)
[2019-01-17] MEDS: METOPROLOL TART 50 MG TAB PO SCH (09:06)
[2019-01-17] MEDS: ASPIRIN 81 MG ENTERIC COATED PO SCH (09:11)
[2019-01-17] MEDS: GABAPENTIN 300 MG CAP PO SCH ×3 (09:12→20:33)
[2019-01-17] MEDS: PANTOPRAZOLE SOD 40 MG TABEC PO SCH (09:12)
[2019-01-17] MEDS: LOSARTAN POTASSIUM 50 MG TAB PO SCH (09:12)
[2019-01-17] MEDS: ENOXAPARIN 40 MG/0.4ML SYR SC SCH (09:12)
[2019-01-17] MEDS: SERTRALINE HCL 50 MG TAB PO SCH (09:12)
[2019-01-17] MEDS ORDERED: ASPIRIN 81 MG CHEW PO ONE ×2 (10:35→10:45)
[2019-01-17] MEDS ORDERED: hydrALAZINE HCL 20 MG/ML VIAL IVP PRN ×2 (10:40→11:40)
--- NOTE | 2019-01-17 10:51 | EKG ---
FACILITY: [facility] [place] PATIENT NAME: FAHAD MORENO : [id number] MR: [id number] V: [id number] EXAM DATE: ORDERING PHYSICIAN: PITA JAIN TECHNOLOGIST: UZRI Test Reason : CP Blood Pressure : / mmHG Vent. Rate : 063 BPM Atrial Rate : 063 BPM P-R Int : 188 ms QRS Dur : 088 ms QT Int : 428 ms P-R-T Axes : 077 -11 074 degrees QTc Int : 437 ms Normal sinus rhythm Possible Anterior infarct , age undetermined Abnormal ECG When compared with ECG of 01.15.2019 No significant change was found Confirmed by Pita Waters ([id number]) on 01/17/2019 10:00:30 PM Referred By: REILLY JAIN Confirmed By:Pita Jain
[2019-01-17] MEDS ORDERED: MAGNESIUM HYDROXIDE* 30ML UDCP PO PRN (11:40)
[2019-01-17] MEDS ORDERED: BISACODYL 10 MG SUPP PR PRN (11:40)
[2019-01-17] MEDS: INSULIN HUM LISPRO 100 UN/ML 3 ML VIAL SUBQ PRN ×3 (12:29→20:42)
[2019-01-17] MEDS: ACETAMINOPHEN 500 MG TAB PO PRN ×2 (12:30→20:33)
[2019-01-17] MEDS: DOCUSATE SODIUM 100 MG CAP PO SCH ×2 (12:30→20:33)
--- NOTE | 2019-01-17 13:27 | NUR ---
Physical Therapy Impression PT eval complete. Discussed with Dr. Swanson and following observations during PT eval: Pt reports headache, dizziness, and nausea and that overall she does not feel well. Pt found to have some R-sided weakness compared to L on manual muscle testing and R eyebrow droopier than left. Pt able to stand with CGA and ambulate around the bed using a RW and CGA. BP 192/99 at start of PT session and 202/123 after ambulation (verified with a manual BP by nursing at 212/102). HR in 60s and SO2 in 1 L at 93%. Pt, likely, at functional baseline, however, this PT is concerned about above listed. Physical Therapy Goals 1. SBA bed mobility. 2. SBA transfers. 3. SBA gait x 50' with RW. Patient's Goals
--- NOTE | 2019-01-17 14:35 | RADIOLOGY IMAGING REPORT ---
FACILITY: PATIENT NAME: Ambar Rodriguez : 1940 MR: [id number] V: [id number] EXAM DATE: ORDERING PHYSICIAN: PITA JAIN TECHNOLOGIST: Location: [facility] Patient: Ambar Rodriguez : 1940 Visit/Account:[id number] Date of Sevice: 01/17/2019 EXAMINATION: MRI brain without IV contrast HISTORY: Dizziness, weakness. COMPARISON: Brain MRI from 02/13/[address] head from 10/24/2017. TECHNIQUE: Multi-planar, multi-sequence brain MRI was performed without IV contrast. FINDINGS: Brain volume: Mild generalized atrophy with associated concordant prominence of the ventricular syst em. Sagittal midline structures: Normal. Ventricles: Normal. Acute ischemic changes: No diffusion restriction present to suggest acute ischemia. Hemorrhage: There are multiple punctate areas of hemosiderin staining peripherally at the mcmahan-white junction. Confluent areas of hemosiderin staining in the right thalamus and left putamen, and a few punctate areas of hemosiderin staining in the bilateral basal ganglia and maribell. Several of these area s of hemosiderin staining are new. Masses/edema: None. Mcmahan-white: Negative. White matter: Patchy and confluent T2/FLAIR hyperintensities in the maribell and deep white matter bilat erally, increased from prior exam. Vessels: Normal. Extra-axial: None. Calvarium/scalp: Negative. Skull base: Negative. Visualized sinuses/orbits: Mild mucosal thickening in the bilateral ethmoid air cells. Visualized upper neck: Negative. IMPRESSION: 1. No acute infarct, acute hemorrhage or intracranial mass lesion. 2. Moderate to severe nonspecific white matter disease has progressed since prior MRI, and is suspici ous for chronic small vessel ischemia. 3. 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 Report Dictated By: Heydi Yap MD at 01/17/2019 2:26 PM Report E-Signed By: Heydi Yap MD at 01/17/2019 2:31 PM WSN:[email or web address]
--- NOTE | 2019-01-17 15:20 | Hospitalist Progress Note ---
Subjective Progress Notes Subjective 78F presented for hypertensive urgency. This am had CP and blurred vision. Possible difference in chronic L sided weakness. MRI and CP work up ordered. Patient Complains of: Neurological: Confusion Cardiovascular: Chest Pain Physical Exam Vital Signs Date Time Temp Pulse Resp B/P (MAP) Pulse Ox O2 Delivery O2 Flow Rate FiO2 01/17/19 14:48 98.4 79 14 177/89 (118) 93 Nasal Cannula 1.0 Intake and Output 01/17/19 07:00 Intake Total 458 ml Balance 458 ml Intake Oral 458 ml # Voids 9 General Appearance: Alert, Awake, Afebrile Neuro: Other (chronic L arm weakness, mild facial asymetry) ENT: Other (poor dentition) Cardiovascular: Normal Rhythm & Peripheral Pulses Respiratory: No Respiratory Distress GI: Soft and Non-Tender Extremities: Soft and Non Tender, Warm, Pulses, Perfused Result Diagram: 01/17/19 0608 01/17/19 1040 Assessment and Plan Problems: (1) Hypertensive emergency Assessment & Plan: She has been only on metoprolol as outpatient. She has had previous cough with LORNA inhibitor. As she has DM we have started ARB (losartan). Troponins were negative in ER. EKG no acute ST changes. Coreg substituted for metoprolol and PRN hydralazine ordered. MRI showed no acute bleed but evidence of subacute microhemorrhages from hypertension. (2) Diastolic heart failure Status: Chronic Assessment & Plan: On previous echocardiogram from 09/2017. Will re-check echocardiogram to see if any changes. She does not appear to need acute diuresis. Continue to work on BP control. (3) Type 2 diabetes mellitus Status: Chronic Assessment & Plan: On long acting insulin (Lantus) 30units daily and mealtime Humalog 18units TID. We have decreased doses to 15units Lantus daily and Humalog 10units TID with meals. Monitor AC and HS. Heart Failure Ejection Fraction %: 62 RVSP (mmHg): 28 NYHA Class: I Is Patient on LORNA Inhibitor?: Yes Is Patient on Beta Agus?: Yes Admission Weight: 165 Exam Sepsis Risk: No Definite Risk GROVER PITA JAIN DO January 17, 2019 15:20
[2019-01-17] MEDS: CARVEDILOL 6.25 MG TAB PO SCH ×2 (15:46→20:33)
[2019-01-17] MEDS: PRAVASTATIN SOD 20 MG TAB PO SCH (20:33)
[2019-01-17] MEDS: INSULIN GLARGINE 100 U/ML 3 ML PEN SUBQ SCH (20:34)
[2019-01-18 07:31] VITALS: BP 177/83
[2019-01-18] MEDS: CARVEDILOL 6.25 MG TAB PO SCH (08:51)
[2019-01-18] MEDS: LOSARTAN POTASSIUM 50 MG TAB PO SCH (08:51)
[2019-01-18] MEDS: SERTRALINE HCL 50 MG TAB PO SCH (08:51)
[2019-01-18] MEDS: DOCUSATE SODIUM 100 MG CAP PO SCH (08:51)
[2019-01-18] MEDS: GABAPENTIN 300 MG CAP PO SCH (08:51)
[2019-01-18] MEDS: PANTOPRAZOLE SOD 40 MG TABEC PO SCH (08:51)
[2019-01-18] MEDS: ASPIRIN 81 MG ENTERIC COATED PO SCH (08:52)
[2019-01-18] MEDS ORDERED: POLYETHYLENE GLYCOL 17 GM PKT PO SCH (09:00)
--- NOTE | 2019-01-18 09:57 | Hospitalist Depart ---
Discharge Summary Reason for Hosp/Final Diag: (1) Hypertensive emergency Hospital Course & Plan: She did present with severe range hypertension and visual changes. She was treated with IV hydralazine and also started on oral carvedilol and losartan. Her pressure have decreased approximately 20%, but we will refrain from any further changes to avoid a precipitous drop. She will require further dose adjustment and possibly additional medication over the next several weeks. (2) Diastolic heart failure Status: Chronic Hospital Course & Plan: She did have increased lower extremity edema. This resolved with treatment of her blood pressure. Her echocardiogram showed an ejection fraction of 70%. (3) Type 2 diabetes mellitus Status: Chronic Hospital Course & Plan: She is on chronic treatment with insulin. Departure Latest Vital Signs Vital Signs 01/18/19 01/18/19 07:31 07:37 Temp 97.6 Pulse 60 Resp 16 B/P (MAP) 177/83 (114) Pulse Ox 94 O2 Delivery Nasal Cannula O2 Flow Rate 0.5 Weight (Pounds): 193 Result Diagram: 01/17/19 0608 01/17/19 1040 Condition: Improved Discharge: Home, Self Care Discharge Instructions Home Meds Active Scripts Gabapentin (GABAPENTIN) 300 Mg Capsule, 300 MG PO TID for 30 Days, CAPSULE Prov:VASU CURTIS MD 10/11/17 Reported Medications Insulin Glargine,Hum.rec.anlog (Basaglar Kwikpen U-100) 100 Unit/Ml (3 Ml) Insuln.pen, 30 UNIT SQ 01/15/19 Sertraline Hcl (SERTRALINE HCL) 50 Mg Tablet, 1 TAB PO QDAY, TAB 01/15/19 Insulin Lispro 200 UN/ML PEN (Humalog Kwikpen) 200 Unit/1 Ml Insuln.pen, 18 UNITS SQ TID 10/06/17 Oxygen (OXYGEN) Inha, 0 INH, L 06/21/15 Nitroglycerin (NITROSTAT) 0.4 Mg Subl, 0.4 MG SL PRN, TAB 06/21/15 Aspirin (ASPIR 81) 81 Mg Tablet.dr, 81 MG PO QDAY, TAB 06/21/15 Pravastatin Sodium (PRAVASTATIN SODIUM) 20 Mg Tablet, 20 MG PO HS, TAB 06/21/15 Pantoprazole Sodium (PANTOPRAZOLE SODIUM) 40 Mg Tablet.dr, 40 MG PO QDAY, TAB.SR 06/21/15 Metoprolol Tartrate (METOPROLOL TARTRATE) 100 Mg Tablet, 50 MG PO BID, TAB 06/21/15 Discontinued Scripts Tramadol Hcl (TRAMADOL HCL) 50 Mg Tablet, 50 MG PO Q6H PRN for PAIN, #10 TAB 0 Refills Prov:CONNIE PORTILLO DO 11/12/18 Insulin Glargine 100 Un/Ml Pen (LANTUS SOLOSTAR PEN) 100 Unit/1 Ml Insuln.pen, 15 UNIT SUBQ BID for 30 Days, Prov:VASU CURTIS MD 10/11/17 Diet: Diabetic Activity: As Tolerated Copies to: KAMRAN ALANIS MD ; Venous Thromboembolism Antithrombotics Is Pt On Any Antithrombotics?: Yes Heart Failure Ejection Fraction %: 62 RVSP (mmHg): 28 NYHA Class: I Is Patient on LORNA Inhibitor?: Yes Is Patient on Beta Agus?: Yes Admission Weight: 165 KAMRAN SANDERS DO January 18, 2019 09:57
[2019-01-18 11:21] VITALS: BP 190/85
[2019-01-18] MEDS ORDERED: LOSA50TA80 PO (11:29)
[2019-01-18] MEDS ORDERED: CAR6.25 PO (11:29)
== END 2019-01-18 12:00 | disposition home or self-care (01) | DRG 305 ==
LOC: ER 10:49 → INTOOBSV 15:09 → MED 15:09 → OBSVTOIN 01-17
PROVIDERS: ADMIT Internal Medicine; ATTEND Internal Medicine
DX: I16.0 Hypertensive urgency (principal); I50.32 Chronic diastolic (congestive) heart failure; G89.29 Other chronic pain; I11.0 Hypertensive heart disease with heart failure; E11.9 Type 2 diabetes mellitus without complications; J44.9 Chronic obstructive pulmonary disease, unspecified; M79.7 Fibromyalgia; R53.1 Weakness; Z88.5 Allergy status to narcotic agent; Z87.891 Personal history of nicotine dependence; Z99.81 Dependence on supplemental oxygen; Z79.4 Long term (current) use of insulin; I25.2 Old myocardial infarction
CPT/HCPCS: 36415; 36416; 70551; 71046; 71275; 74018; 82040; 82247; 82310; 82374; 82435; 82565; 82947; 82948; 83735; 83880; 84075; 84132; 84155; 84295; 84450; 84460; 84484; 84520; 85025; 85379; 93005; 93306; 93970; 96374; 97163; 99285; G0378; J0360; J1650; J1815; J1885; J7050; Q9967

== ENCOUNTER 2019-04-06 21:18 | Emergency (ER) | payer MEDICARE, MEDICAID ==
[2017-10-10 10:05] VITALS: Wt 87.7 kg
[~2019-04-06 21:18] MED LIST changes: -AMOX-362 PO; -PHEN200T32 PO
--- NOTE | 2019-04-06 21:29 | ER Report ---
History and Physical Time Seen By MD: 21:26 HPI/ROS CHIEF COMPLAINT: right lower and suprapubic abd pain HISTORY OF PRESENT ILLNESS: This is a 79 year old female. She was brought to the ER by EMS, called due to lower abdominal pain. Patient has had about 24 hours of increasing right lower abdominal pain. Suprapubic pressure and burning with u rination as well. Some lower right back pain. No fevers, but has had been feeling a little cold tonight. No cough or shortness of breath. No chest pain. No nausea or vomiting. No diarrhea. Allergies: Coded Allergies: morphine (Verified Allergy, Unknown, HIVES, 04/06/19) codeine (Verified Adverse Reaction, Unknown, NAUSEA/VOMITING, 04/06/19) Home Meds Active Scripts Phenazopyridine Hcl (PHENAZOPYRIDINE HCL) 200 Mg Tablet, 200 MG PO TID, #12 TAB 0 Refills Prov:MAHAD LLANES MD 04/06/19 Amoxicillin (AMOXICILLIN) 500 Mg Capsule, 1 CAP PO Q8H, #15 CAPSULE 0 Refills Prov:MAHAD LLANES MD 04/06/19 Losartan Potassium (LOSARTAN POTASSIUM) 50 Mg Tablet, 100 MG PO QDAY, #30 TAB Prov:KAMRAN SANDERS DO 01/18/19 Carvedilol (CARVEDILOL) 6.25 Mg Tab, 6.25 MG PO BID, #60 TAB Prov:KAMRAN SANDERS DO 01/18/19 Gabapentin (GABAPENTIN) 300 Mg Capsule, 300 MG PO TID for 30 Days, CAPSULE Prov:VASU CURTIS MD 10/11/17 Reported Medications Insulin Glargine,Hum.rec.anlog (Basaglar Kwikpen U-100) 100 Unit/Ml (3 Ml) Insuln.pen, 30 UNIT SQ 01/15/19 Sertraline Hcl (SERTRALINE HCL) 50 Mg Tablet, 1 TAB PO QDAY, TAB 01/15/19 Insulin Lispro 200 UN/ML PEN (Humalog Kwikpen) 200 Unit/1 Ml Insuln.pen, 18 UNITS SQ TID 10/06/17 Oxygen (OXYGEN) Inha, 0 INH, L 06/21/15 Nitroglycerin (NITROSTAT) 0.4 Mg Subl, 0.4 MG SL PRN, TAB 06/21/15 Aspirin (ASPIR 81) 81 Mg Tablet.dr, 81 MG PO QDAY, TAB 06/21/15 Pravastatin Sodium (PRAVASTATIN SODIUM) 20 Mg Tablet, 20 MG PO HS, TAB 06/21/15 Pantoprazole Sodium (PANTOPRAZOLE SODIUM) 40 Mg Tablet.dr, 40 MG PO QDAY, TAB.SR 06/21/15 Reviewed Nurses Notes: Yes Hx Smoking: Yes Smoking Status: Former Smoker Exposure to Second Hand Smoke?: Yes Hx Substance Use Disorder: No Hx Alcohol Use: No Constitutional Vital Sign - Last 24 Hours 04/06/19 04/06/19 04/06/19 04/06/19 21:24 21:30 21:33 21:48 Temp 98.5 Pulse 74 74 69 Resp 20 B/P (MAP) 200/96 220/95 (136) Pulse Ox 92 93 97 04/06/19 04/06/19 04/06/19 04/06/19 22:00 22:03 22:18 22:48 Pulse 68 66 65 B/P (MAP) 188/81 (116) Pulse Ox 96 96 97 04/06/19 04/06/19 04/06/19 04/06/19 23:00 23:03 23:08 23:23 Pulse 64 65 63 B/P (MAP) 163/71 (101) Pulse Ox 96 95 98 04/06/19 04/06/19 23:30 23:38 Pulse 64 B/P (MAP) 158/64 (95) Pulse Ox 97 Intake and Output 04/06/19 04/06/19 04/07/19 15:03 23:03 07:03 Intake Total 100 ml 1000 ml Output Total 10 ml Balance 90 ml 1000 ml Physical Exam General Appearance: The patient is alert. No acute distress. Eyes: Pupils are equal, round. No pallor, injection or icterus. ENT: Mucous membranes are moist. Neck: Supple and non tender. Respiratory: Lungs are clear to auscultation. Cardiovascular: Regular rate and rhythm. No murmurs, gallops or rubs. Normal capillary refill. Gastrointestinal: Abdomen is soft, tender in right lower quadrant and in suprapubic area. Nondistended. Guarding but no rebound. Normal active bowel sounds. No costovertebral angle tenderness with percussion. Neurological: Alert and oriented x3. No focal neurologic deficits Skin: Warm and dry. No rashes. Musculoskeletal: Some pain in palpation right lower back lumbar area. DIFFERENTIAL DIAGNOSIS: After history and physical exam, differential diagnosis was considered for abdominal pain including but not limited to appendicitis, colitis and urinary tract infection. Medical Decision Making Data Points Result Diagram: 04/06/19213204/06/192132 Laboratory Hematology Test 04/06/19 21:33 White Blood Count 6.6 k/uL (4.5-11.0) Red Blood Count 4.55 M/uL (4.17-5.56) Hemoglobin 12.4 g/dL (12.0-16.0) Hematocrit 37.9 % (34.0-47.0) Mean Corpuscular Volume 83.2 fL (80.0-96.0) Mean Corpuscular Hemoglobin 27.3 pg (26.0-33.0) Mean Corpuscular Hemoglobin Concent 32.8 g/dL (32.0-36.0) Red Cell Distribution Width 13.6 % (11.5-14.5) Platelet Count 174 K/uL (150-450) Mean Platelet Volume 9.9 fL (7.2-11.1) Neutrophils (%) (Auto) 43.0 % (39.4-72.5) Lymphocytes (%) (Auto) 44.3 % (17.6-49.6) Monocytes (%) (Auto) 8.7 % (4.1-12.4) Eosinophils (%) (Auto) 3.2 % (0.4-6.7) Basophils (%) (Auto) 0.8 % (0.3-1.4) Nucleated RBC Relative Count (auto) 0.1 /100WBC Neutrophils # (Auto) 2.8 K/uL (2.0-7.4) Lymphocytes # (Auto) 2.9 K/uL (1.3-3.6) Monocytes # (Auto) 0.6 K/uL (0.3-1.0) Eosinophils # (Auto) 0.2 K/uL (0.0-0.5) Basophils # (Auto) 0.1 K/uL (0.0-0.1) Nucleated RBC Absolute Count (auto) 0.00 K/uL Chemistry Test 04/06/19 21:33 Sodium Level 137 mmol/L (137-145) Potassium Level 3.9 mmol/L (3.5-5.0) Chloride Level 102 mmol/L (98-107) Carbon Dioxide Level 28 mmol/L (22-31) Blood Urea Nitrogen 18 mg/dl (7-18) Creatinine 0.80 mg/dl (0.52-1.04) Glomerular Filtration Rate Calc > 60.0 Random Glucose 245 mg/dl (75-110) Calcium Level 8.8 mg/dl (8.4-10.2) Total Bilirubin 0.3 mg/dl (0.2-1.3) Aspartate Amino Transf (AST/SGOT) 35 U/L (0-35) Alanine Aminotransferase (ALT/SGPT) 33 U/L (0-56) Alkaline Phosphatase 88 U/L (0-126) C-Reactive Protein < 0.5 mg/dl (<1.0) Total Protein 7.0 g/dl (6.3-8.2) Albumin 3.4 g/dl (3.5-5.0) Amylase Level 65 U/L (0-110) Lipase 17 U/L (23-300) Urinalysis Test 04/06/19 22:13 Urine Color Yellow Urine Clarity Slightly-cloudy Urine pH 6.0 pH (4.8-9.5) Urine Specific [place] 1.010 Urine Protein 100 mg/dL (NEGATIVE) Urine Glucose (UA) 500 mg/dL (NEGATIVE) Urine Ketones Negative mg/dL (NEGATIVE) Urine Blood Small (NEGATIVE) Urine Nitrite Negative (NEGATIVE) Urine Bilirubin Negative (NEGATIVE) Urine Urobilinogen 4.0 mg/dL (0.2-1.9) Urine Leukocyte Esterase Small (NEGATIVE) Urine RBC 4 /HPF (0-2/HPF) Urine WBC 7 /HPF (0-5/HPF) Urine Squamous Epithelial Cells Moderate /LPF (NONE-FEW) Urine Bacteria Many /HPF (NONE-FEW) Urine Mucus None /HPF (NONE-FEW) Urine Yeast (Budding) Many /HPF EKG/Imaging Imaging COMPUTED TOMOGRAPHY ABDOMEN AND PELVIS WITH INTRAVENOUS CONTRAST DATE OF EXAM: 04/06/2019 9:48 PM INDICATION: Right lower quadrant abdominal pain for 2 days. COMPARISON: CT abdomen and pelvis 01/01/2018 and others. TECHNIQUE: Contrast enhanced abdomen and pelvis CT performed during the injection of 75 ml of Isovue 370. Sagittal and coronal reconstructions were performed. One of the following dose optimization techniques was utilized in the performance of this exam: Automated exposure control; adjustment of the mA and/or kV according to the patient's size; or use of an iterative reconstruction technique. Specific details can be referenced in the facility's radiology CT exam operational policy. FINDINGS: Lung bases: Calcified granuloma in the right lung base and calcified right hilar/mediastinal lymph node consistent with remote granulomatous infection. Marked coronary artery calcification. Liver and hepatic vasculature: Normal. Gallbladder and bile ducts: Cholecystectomy. Spleen: Normal. Pancreas: Nonfocal. Adrenals: Normal. Kidneys, ureters and bladder: No acute abnormality or suspicious lesion. Retroperitoneum and aorta: Nonaneurysmal aorta with moderate atherosclerosis, with probable associated narrowing of branch vessel origins. No retroperitoneal adenopathy. GI tract, mesentery and peritoneum: No evidence of obstruction. No pneumatosis, pneumoperitoneum or free fluid. The appendix is not identified and may be surgically absent. No acute inflammation the right lower quadrant. Small duodenal diverticula. Uterus and adnexa: Hysterectomy. Bones and soft tissues: No acute abnormality or suspicious lesion. Unchanged irregular subcutaneous soft tissue densities on either side of the umbilicus likely related to injection sites. Small fat-containing umbilical hernia with no associated complication. IMPRESSION: 1. No apparent acute abnormality. 2. Hysterectomy and cholecystectomy. Question appendectomy. 3. Marked coronary artery calcification. Report Dictated By: Oleg Lopez MD at 04/06/2019 10:56 PM ED Course/Re-evaluation Clinical Indication for ER IV: Hydration, IV Access ED Course Reviewed labs with the patient. White count is normal. Kidney function show she is a little bit dry. Urinalysis shows urinary tract infection. Starting amoxicillin and also providing some Pyridium Decision to Disposition Date: Apr 06, 2019 Decision to Disposition Time: 23:31 Depart Departure Latest Vital Signs Vital Signs Date Time Temp Pulse Resp B/P (MAP) Pulse Ox O2 Delivery O2 Flow Rate FiO2 04/06/19 23:38 64 97 04/06/19 23:30 158/64 (95) 04/06/19 21:24 98.5 20 Impression: Primary Impression: Urinary tract infection Condition: Improved Disposition: HOME OR SELF-CARE Referrals: KAMRAN ALANIS MD (PCP) New Scripts Phenazopyridine Hcl (PHENAZOPYRIDINE HCL) 200 Mg Tablet 200 MG PO TID, #12 TAB 0 Refills Prov: MAHAD LLANES MD 04/06/19 Amoxicillin (AMOXICILLIN) 500 Mg Capsule 1 CAP PO Q8H, #15 CAPSULE 0 Refills Prov: MAHAD LLANES MD 04/06/19 Patient Instructions: Urinary Tract Infection in Women (ED) Additional Instructions: Take Amoxicillin 500mg three times a day for 5 days. Follow-up with your primary care provider this week. Call in the morning to schedule an appointment. Take Pyridium 200mg three times a day as needed for burning with urination. Tylenol as needed for pain. Problem Qualifiers Primary Impression: Urinary tract infection Urinary tract infection type: acute cystitis Hematuria presence: without hematuria Qualified Codes: N30.00 - Acute cystitis without hematuria MAHAD LLANES MD Apr 06, 2019 21:29
[2019-04-06] MEDS ORDERED: NS(*) 0.9% 1000 ML BAG 1,000 ML IV ONE (21:48)
[2019-04-06] MEDS ORDERED: ACETAMINOPHEN(*)1000 MG/100 ML 100 ML IVPB ONE (21:50)
[2019-04-06] MEDS ORDERED: ONDANSETRON 4 MG/2 ML VIAL IVP ONE (21:50)
[2019-04-06] MEDS ORDERED: IOPAMIDOL 76% 100 ML INFUS BTL 100 ML ONE (22:02)
[2019-04-06 22:12] LABS: PLATELET COUNT, AUTOMATED 174 K/uL (150-450)
--- NOTE | 2019-04-06 23:12 | RADIOLOGY IMAGING REPORT ---
FACILITY: [facility] - [place] PATIENT NAME: Ambar Rodriguez : 1940 MR: [id number] V: [id number] EXAM DATE: ORDERING PHYSICIAN: MAHAD LLANES TECHNOLOGIST: Location: [facility] - [place] Patient: Ambar Rodriguez : 1940 Visit/Account:[id number] Date of Sevice: 04/06/2019 COMPUTED TOMOGRAPHY ABDOMEN AND PELVIS WITH INTRAVENOUS CONTRAST DATE OF EXAM: 04/06/2019 9:48 PM INDICATION: Right lower quadrant abdominal pain for 2 days. COMPARISON: CT abdomen and pelvis 01/01/2018 and others. TECHNIQUE: Contrast enhanced abdomen and pelvis CT performed during the injection of 75 ml of Isovue 370. Sagittal and coronal reconstructions were performed. One of the following dose optimization te chniques was utilized in the performance of this exam: Automated exposure control; adjustment of the mA and/or kV according to the patient's size; or use of an iterative reconstruction technique. Spec [facility] details can be referenced in the facility's radiology CT exam operational policy. FINDINGS: Lung bases: Calcified granuloma in the right lung base and calcified right hilar/mediastinal lymph no de consistent with remote granulomatous infection. Marked coronary artery calcification. Liver and hepatic vasculature: Normal. Gallbladder and bile ducts: Cholecystectomy. Spleen: Normal. Pancreas: Nonfocal. Adrenals: Normal. Kidneys, ureters and bladder: No acute abnormality or suspicious lesion. Retroperitoneum and aorta: Nonaneurysmal aorta with moderate atherosclerosis, with probable associat ed narrowing of branch vessel origins. No retroperitoneal adenopathy. GI tract, mesentery and peritoneum: No evidence of obstruction. No pneumatosis, pneumoperitoneum or free fluid. The appendix is not identified and may be surgically absent. No acute inflammation the right lower quadrant. Small duodenal diverticula. Uterus and adnexa: Hysterectomy. Bones and soft tissues: No acute abnormality or suspicious lesion. Unchanged irregular subcutaneous soft tissue densities on either side of the umbilicus likely related to injection sites. Small fat- containing umbilical hernia with no associated complication. IMPRESSION: 1. No apparent acute abnormality. 2. Hysterectomy and cholecystectomy. Question appendectomy. 3. Marked coronary artery calcification. Report Dictated By: Oleg Lopez MD at 04/06/2019 10:56 PM Report E-Signed By: Oleg Lopez MD at 04/06/2019 11:06 PM WSN:[id number]
[2019-04-06 23:30] VITALS: BP 158/64
[2019-04-06] MEDS ORDERED: AMOXICILLIN 500 MG CAP PO ONE (23:35)
[2019-04-06] MEDS ORDERED: PHENAZOPYRIDINE 200 MG TAB TH 2 TAB/BOTTLE PO ONE (23:35)
[2019-04-06] MEDS ORDERED: AMOX-362 PO (23:40)
[2019-04-06] MEDS ORDERED: PHEN200T32 PO (23:40)
== END 2019-04-06 23:55 | disposition home or self-care (01) ==
LOC: ER 21:38
DX: N30.00 Acute cystitis without hematuria (principal)
CPT/HCPCS: 74177; 81001; 82150; 83690; 85025; 86140; 87077; 87088; 87186; 96361; 96365; 96375; 99284; A4353; A9270; J0131; J2405; J7030; Q9967; 82040; 82247; 82310; 82374; 82435; 82565; 82947; 84075; 84132; 84155; 84295; 84450; 84460; 84520

== ENCOUNTER → 2019-04-06 | Outpatient (CLI) | payer MEDICARE, MEDICAID ==
[2017-10-10 10:05] VITALS: BMI 34.2
[~2019-04-06] MED LIST changes: +AMOX-362 PO; -CALC-488 PO; +CALC-743 PO; +CAR6.25 PO; +INSU100I10 SQ; +LOSA50TA80 PO; +PHEN200T32 PO
== END ==
LOC: AMB 20:56
PROVIDERS: ATTEND Nurse Practitioner
DX: R10.31 Right lower quadrant pain (principal); R53.1 Weakness
CPT/HCPCS: A0425; A0427

== ENCOUNTER 2019-05-03 20:43 | Observation (INO) | payer MEDICARE, MEDICAID ==
[~2019-05-03] VITALS: Ht 167.6 cm; Wt 89.0 kg
[~2019-05-03 20:43] MED LIST changes: -PRED20TA6 PO
[2019-05-03] MEDS ORDERED: NS(*) 0.9% 1000 ML BAG 1,000 ML IV ONE (20:45)
[2019-05-03] MEDS ORDERED: ACETAMINOPHEN 325 MG TAB PO ONE (20:45)
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
[2019-05-03 21:06] LABS: PLATELET COUNT, AUTOMATED 191 K/uL (150-450)
--- NOTE | 2019-05-03 21:13 | EKG ---
FACILITY: [facility] PATIENT NAME: FAHAD MORENO : [id number] MR: [id number] V: [id number] EXAM DATE: ORDERING PHYSICIAN: MAYA EASON TECHNOLOGIST: LACHO Test Reason : CP Blood Pressure : / mmHG Vent. Rate : 071 BPM Atrial Rate : 071 BPM P-R Int : 172 ms QRS Dur : 090 ms QT Int : 426 ms P-R-T Axes : 070 -06 072 degrees QTc Int : 462 ms Normal sinus rhythm Normal ECG When compared with ECG of 17-JAN-2019 10:41, Borderline criteria for Anterior infarct are no longer present Confirmed by KAMRAN SANDERS ([id number]) on 05/04/2019 4:36:49 AM Referred By: Confirmed By:KAMRAN SANDERS
[2019-05-03] MEDS ORDERED: fentaNYL CITR 100 MCG/2 ML AMP IVP ONE (21:50)
--- NOTE | 2019-05-03 22:04 | RADIOLOGY IMAGING REPORT ---
FACILITY: [facility] - [place] PATIENT NAME: Ambar Rodriguez : 1940 MR: [id number] V: [id number] EXAM DATE: ORDERING PHYSICIAN: MAYA EASON TECHNOLOGIST: Location: [facility] Patient: Ambar Rodriguez : 1940 Visit/Account:[id number] Date of Sevice: 05/03/2019 PORTABLE CHEST: Indication: Fever. Technique: A single frontal film was obtained. Comparison: 01/15/2019 Skeletal and soft tissue structures: There are stable degenerative changes in the shoulders. No acute skeletal deformity is identified. Heart and mediastinum: Within normal limits. Lung gusman: Well-expanded. No focal consolidation or volume loss. No evidence of vascular congestion . Pleural spaces: Unremarkable. Impression: No acute process or significant change. Report Dictated By: Nav Rodriguez MD at 05/03/2019 9:50 PM Report E-Signed By: Nav Rodriguez MD at 05/03/2019 9:56 PM WSN:[id number]
--- NOTE | 2019-05-03 22:12 | RADIOLOGY IMAGING REPORT ---
FACILITY: [facility] - [place] PATIENT NAME: Ambar Rodriguez : 1940 MR: [id number] V: [id number] EXAM DATE: ORDERING PHYSICIAN: MAYA EASON TECHNOLOGIST: Location: [facility] - [place] Patient: Ambar Rodriguez : 1940 Visit/Account:[id number] Date of Sevice: 05/03/2019 Pelvis and right hip: Indication: Pain. Technique: Two views were obtained. Comparison: 11/12/2018 Findings: There is no evidence of fracture, dislocation, or other acute deformity. There is no eviden ce of significant joint space narrowing or osteophyte formation. There is uniform mineralization of t he skeletal structures in the pelvis. There are chronic degenerative changes in the lower lumbar spine. Multiple surgical clips are present in the right groin. There is diffuse atherosclerotic calcificatio n of the arterial structures. There has been no significant change. IMPRESSION: No acute deformity or significant change. Report Dictated By: Nav Rodriguez MD at 05/03/2019 9:56 PM Report E-Signed By: Nav Rodriguez MD at 05/03/2019 10:03 PM WSN:[id number]
[2019-05-03] MEDS ORDERED: hydrALAZINE HCL 20 MG/ML VIAL IVP ONE (22:25)
--- NOTE | 2019-05-03 22:36 | RADIOLOGY IMAGING REPORT ---
FACILITY: [facility] [place]IENT NAME: Ambar Rodriguez : 1940 MR: [id number] V: [id number] EXAM DATE: ORDERING PHYSICIAN: MAYA EASON TECHNOLOGIST: Location: [facility] Patient: Ambar Rodriguez : 1940 Visit/Account:[id number] Date of Sevice: 05/03/2019 KNEE 3 VIEW RIGHT HISTORY: Right knee pain. No trauma. COMPARISON: None. TECHNIQUE: AP, oblique, and crosstable lateral views of the right knee. FINDINGS: There are a few surgical clips in the thigh and lower leg. There is no fracture or dislocat ion. There is severe narrowing of the patellofemoral joint compartment. There are marginal patellar osteop hytes. There is narrowing of the lateral greater than medial tibiofemoral joint compartments. There i s spurring of the tibial spines. There is chondrocalcinosis, greatest laterally. There are moderate vascular calcifications. No joint effusion. IMPRESSION: 1. Degenerative changes, but no acute osseous abnormality of the right knee. 2. Chondrocalcinosis, which can be seen with CPPD. 3. Moderate vascular calcifications. Report Dictated By: Angelica Franklin at 05/03/2019 10:24 PM Report E-Signed By: Angelica Franklin at 05/03/2019 10:28 PM WSN:[id number]
--- NOTE | 2019-05-03 22:38 | RADIOLOGY IMAGING REPORT ---
FACILITY: [facility] - [place] PATIENT NAME: Ambar Rodriguez : 1940 MR: [id number] V: [id number] EXAM DATE: [id number] ORDERING PHYSICIAN: MAYA EASON TECHNOLOGIST: Location: [facility] Patient: Ambar Rodriguez : 1940 Visit/Account:[id number] Date of Sevice: 05/03/2019 CT Head without contrast Indication: Altered mental status. Comparison: 10/24/2017. Technique: Axial CT images were obtained through the brain from the skull base to the vertex without administration of IV contrast. Reformatted coronal and sagittal images were also obtained. One of the following dose optimization techniques was utilized in the performance of this exam: autom ated exposure control; adjustment of the mA and/or kV according to the patient's size; or use of an i terative reconstruction technique. Specific details can be referenced in the facility's radiology CT exam operational policy. Findings: No evidence of mass, mass effect, or midline shift. No acute intracranial hemorrhage or acute territorial infarction. No extra-axial fluid collection or hydrocephalus. Age-related cerebral atrophy. There is again promin ent periventricular white matter ischemic changes consistent small vessel disease. Mcmahan/white matter differentiation appears normal. Mild bilateral internal carotid artery calcifications. Bony structures show no fractures or lesions. The visualized paranasal sinuses and mastoid air cells are clear. IMPRESSION: 1. Continued senescent changes without acute abnormality. Report Dictated By: Dave Mckenna at 05/03/2019 10:25 PM Report E-Signed By: Dave Mckenna at 05/03/2019 10:30 PM WSN:[id number]
[2019-05-03] MEDS ORDERED: methylPREDNIS SUCC 125 MG/2ML IVP ONE (23:25)
[2019-05-03] MEDS ORDERED: PRED20TA6 PO (23:29)
[2019-05-03] MEDS ORDERED: TRAM-420 PO (23:29)
[2019-05-03] MEDS ORDERED: traMADol 50 MG TAB TH 2 TAB/BOTTLE PO ONE (23:30)
[2019-05-04] VITALS (7 sets, daily range): BP systolic 95–220; BP diastolic 57–110; Ht 167.6 cm; Wt 89.0 kg
[2019-05-04] MEDS ORDERED: fentaNYL CITR 100 MCG/2 ML AMP IVP ONE (02:55)
[2019-05-04] MEDS ORDERED: INFLUENZA VIRUS VAC 0.5ML SYR IM ONLY ONE (04:25)
--- NOTE | 2019-05-04 04:39 | History & Physical ---
History of Present Illness Chief Complaint Right leg pain History of Present Illness This patient presented to the emergency room complaining of pain in the right knee and hip. She reports that the pain started 2 days ago, and has progressed to the point where she is no longer to move the leg. She points specifically to the lateral upper thigh. History Problems: (1) Type 2 diabetes mellitus Status: Chronic (2) Hypertension Status: Acute (3) Hypertensive emergency (4) DVT (deep venous thrombosis) Status: Resolved (5) Depression with anxiety Status: Chronic (6) CAD (coronary artery disease) Status: Chronic Home Meds Active Scripts Prednisone (PREDNISONE) 20 Mg Tablet, 20 MG PO QDAY for reduction of inflammation, #5 Prov:YUMIMAYA Fernando CARRASCO 05/03/19 Tramadol Hcl (TRAMADOL HCL) 50 Mg Tablet, 1 TAB PO Q4-6H for PAIN, #15 MG TAKE ONE TABLET BY MOUTH EVERY FOUR TO SIX HOURS NEEDED Prov:YUMIMAYA King DO 05/03/19 Phenazopyridine Hcl (PHENAZOPYRIDINE HCL) 200 Mg Tablet, 200 MG PO TID, #12 TAB 0 Refills Prov:MAHAD LLANES MD 04/06/19 Losartan Potassium (LOSARTAN POTASSIUM) 50 Mg Tablet, 100 MG PO QDAY, #30 TAB Prov:KAMRAN SANDERS DO 01/18/19 Carvedilol (CARVEDILOL) 6.25 Mg Tab, 6.25 MG PO BID, #60 TAB Prov:KAMRAN SANDERS DO 01/18/19 Gabapentin (GABAPENTIN) 300 Mg Capsule, 300 MG PO TID for 30 Days, CAPSULE Prov:VASU CURTIS MD 10/11/17 Reported Medications Insulin Glargine,Hum.rec.anlog (Basaglar Kwikpen U-100) 100 Unit/Ml (3 Ml) Insuln.pen, 30 UNIT SQ 01/15/19 Sertraline Hcl (SERTRALINE HCL) 50 Mg Tablet, 1 TAB PO QDAY, TAB 01/15/19 Insulin Lispro 200 UN/ML PEN (Humalog Kwikpen) 200 Unit/1 Ml Insuln.pen, 18 UNITS SQ TID 10/06/17 Oxygen (OXYGEN) Inha, 0 INH, L 06/21/15 Nitroglycerin (NITROSTAT) 0.4 Mg Subl, 0.4 MG SL PRN, TAB 06/21/15 Aspirin (ASPIR 81) 81 Mg Tablet.dr, 81 MG PO QDAY, TAB 06/21/15 Pravastatin Sodium (PRAVASTATIN SODIUM) 20 Mg Tablet, 20 MG PO HS, TAB 06/21/15 Pantoprazole Sodium (PANTOPRAZOLE SODIUM) 40 Mg Tablet.dr, 40 MG PO QDAY, TAB.SR 06/21/15 Discontinued Scripts Amoxicillin (AMOXICILLIN) 500 Mg Capsule, 1 CAP PO Q8H, #15 CAPSULE 0 Refills Prov:MAHAD LLANES MD 04/06/19 Allergies: Coded Allergies: morphine (Verified Allergy, Unknown, HIVES, 04/06/19) codeine (Verified Adverse Reaction, Unknown, NAUSEA/VOMITING, 04/06/19) Patient History: FH: diabetes mellitus FATHER, , Age:56 MOTHER, BROTHER OR SISTER CHILD FH: hypertension FATHER, , Age:56 MOTHER, BROTHER OR SISTER CHILD CHILD Gangrene FATHER, , Age:56 Hx Smoking: Yes Smoking Status: Former Smoker Exposure to Second Hand Smoke?: Yes Caffeine Intake: Coffee, Soda Caffeine/Cups Per Day: 2-3 Hx Alcohol Use: No Hx Substance Use Disorder: No Social Drug Use: Former Review of Systems All Systems Reviewed/Normal: Yes, Except as Noted Musculoskeletal: Pain Exam Vital Signs Vital Signs Date Time Temp Pulse Resp B/P (MAP) Pulse Ox O2 Delivery O2 Flow Rate FiO2 05/04/19 03:53 97.8 87 18 171/88 (115) 96 Nasal Cannula 2.0 Neuro: No Gross deficits Eyes: PERRLA Cardiovascular: Regular Rate and Rhythm Respiratory: Clear to Auscultation GI: Abd Soft and Non-Tender Extremities: Other (Tenderness along right lateral thigh.) Medical Decision Making Data Points Result Diagram: 05/03/19204705/03/192047 Assessment and Plan Problems: (1) Right leg pain Status: Acute Assessment & Plan: She complains of right leg pain and inability to move. Her sed rate is elevated, but her symptoms are unilateral. She did receive a dose of steroids in the emergency room so we will monitor how she responds to that to rule out polymyalgia rheumatica. She does point specifically to the lateral thigh and is tender along the IT band. She also has a history of fibromyalgia. Physical therapy has been consulted. (2) Type 2 diabetes mellitus Status: Chronic Assessment & Plan: She is on chronic treatment with Basaglar. We have placed h er on Lantus and sliding scale level #2. (3) Hypertension Status: Acute Assessment & Plan: She is on chronic treatment with losartan. (4) Depression with anxiety Status: Chronic Assessment & Plan: She is on chronic treatment with sertraline. (5) CAD (coronary artery disease) Status: Chronic Assessment & Plan: She is on chronic treatment with aspirin and carvedilol. Copies to: KENYON FRANKLIN MD ; Venous Thromboembolism Antithrombotics Is Pt On Any Antithrombotics?: No Heart Failure Ejection Fraction %: 62 RVSP (mmHg): 28 NYHA Class: I Is Patient on LORNA Inhibitor?: Yes Is Patient on Beta Agus?: Yes Admission Weight: 165 Exam Sepsis Risk: No Definite Risk Problem Qualifiers (1) Hypertension: Hypertension type: essential hypertension Qualified Codes: I10 - Essential (primary) hypertension KAMRAN SANDERS DO May 04, 2019 04:39
[2019-05-04] MEDS: ACETAMINOPHEN 325 MG TAB PO PRN ×2 (04:47→17:16)
[2019-05-04] MEDS: oxyCODONE HCL 5 MG CAP PO PRN ×3 (04:48→15:16)
[2019-05-04] MEDS ORDERED: CYCLOBENZAPRINE HCL 10 MG TAB PO PRN (08:00)
[2019-05-04] MEDS: INSULIN HUM LISPRO 100 UN/ML 3 ML VIAL SUBQ PRN ×4 (08:29→21:39)
[2019-05-04] MEDS: ASPIRIN 81 MG ENTERIC COATED PO SCH (08:29)
[2019-05-04] MEDS: LOSARTAN POTASSIUM 50 MG TAB PO SCH (08:29)
[2019-05-04] MEDS: PANTOPRAZOLE SOD 40 MG TABEC PO SCH (08:30)
[2019-05-04] MEDS: GABAPENTIN 300 MG CAP PO SCH ×3 (08:30→21:39)
[2019-05-04] MEDS: SERTRALINE HCL 50 MG TAB PO SCH (08:30)
[2019-05-04] MEDS: CARVEDILOL 6.25 MG TAB PO SCH ×2 (08:30→21:40)
--- NOTE | 2019-05-04 10:21 | Hospitalist Progress Note ---
Subjective Progress Notes Subjective She was admitted with leg pain. She reports severe pain in her quad muscle of her right leg. She reports minimal improvement with steroids. Patient Complains of: Cardiovascular: No: Chest Pain Respiratory: No: Shortness of Breath Physical Exam Vital Signs Date Time Temp Pulse Resp B/P (MAP) Pulse Ox O2 Delivery O2 Flow Rate FiO2 05/04/19 07:41 97.8 84 16 154/92 (112) 97 Nasal Cannula 1.5 Intake and Output 05/04/19 07:04 Intake Total 1000 ml Balance 1000 ml Intake IV Total 1000 ml # Voids 5 General Appearance: Alert, Awake, No Acute Distress, Afebrile Neuro: No Gross deficits Cardiovascular: Regular Rate and Rhythm Respiratory: No Respiratory Distress, Clear to Auscultation Extremities: Other (right quad muscle painful to palpation, no knee effusion seen, warm, no erythema seen) Psych: Alert & Oriented X3, Appropriate Mood & Affect Result Diagram: 05/03/19204705/03/192047 Assessment and Plan Problems: (1) Right leg pain Status: Acute Assessment & Plan: She complains of right leg pain and inability to move. Her sed rate is elevated, but her symptoms are unilateral. She did receive a dose of steroids in the emergency room , which she reports had no improvement in symptoms. Likely, rules out possible polymyalgia rheumatica. She does point specifically to the lateral thigh and is tender along the IT band. She also has a history of fibromyalgia. Physical therapy has been consulted. She will get CT of her leg today to assess for possible abscess. (2) Type 2 diabetes mellitus Status: Chronic Assessment & Plan: She is on chronic treatment with Basaglar. We have placed her on Lantus and sliding scale level #2. (3) Hypertension Status: Acute Assessment & Plan: She is on chronic treatment with losartan. (4) Depression with anxiety Status: Chronic Assessment & Plan: She is on chronic treatment with sertraline. (5) CAD (coronary artery disease) Status: Chronic Assessment & Plan: She is on chronic treatment with aspirin and carvedilol. Heart Failure Ejection Fraction %: 62 RVSP (mmHg): 28 NYHA Class: I Is Patient on LORNA Inhibitor?: Yes Is Patient on Beta Agus?: Yes Admission Weight: 165 Exam Sepsis Risk: No Definite Risk Problem Qualifiers (1) Hypertension: Hypertension type: essential hypertension Qualified Codes: I10 - Essential (primary) hypertension AUNG YBARRAP May 04, 2019 10:21
[2019-05-04 11:16] LABS: PLATELET COUNT, AUTOMATED 195 K/uL (150-450)
--- NOTE | 2019-05-04 11:37 | EKG ---
FACILITY: [facility] - [place] PATIENT NAME: FAHAD MORENO : [id number] MR: [id number] V: [id number] EXAM DATE: ORDERING PHYSICIAN: AUNG YBARRA TECHNOLOGIST: Test Reason : CP Blood Pressure : / mmHG Vent. Rate : 089 BPM Atrial Rate : 089 BPM P-R Int : 190 ms QRS Dur : 084 ms QT Int : 392 ms P-R-T Axes : 065 -17 078 degrees QTc Int : 476 ms Sinus rhythm Probable left atrial enlargement Left axis Poor R wave progression anteriorly - question previous infarct Abnormal ECG Similar to EKG from 10/07/12 Confirmed by KALYN MADISON ([id number]) on 05/04/2019 12:35:01 PM Referred By: Confirmed By:KALYN MADISON
--- NOTE | 2019-05-04 12:38 | Miscellaneous Provider Note ---
Miscellaneous Provider Note Note Patient was noted to have change in status by nursing staff. She became agitated and anxious and was noted to have headache and blurry vision. She was given Flexeril approximately 1.5 hours before change in status, which could cause all symptoms noted. Checked labs and EKG, all were normal. This change was likely related to the Flexeril, she appears to be improving with time. She will no longer receive Flexeril for muscle ache. She will be monitored closely throughout the day. AUNG YBARRA [facility] May 04, 2019 12:38
[2019-05-04] MEDS ORDERED: GADOBENATE 529MG/1ML 15ML VIAL IVP ONE (16:01)
--- NOTE | 2019-05-04 18:01 | RADIOLOGY IMAGING REPORT ---
FACILITY: [facility] [place] PATIENT NAME: Ambar Rodriguez : 1940 MR: [id number] V: [id number] EXAM DATE: ORDERING PHYSICIAN: AUNG YBARRA TECHNOLOGIST: Location: [facility] - [place] Patient: Ambar Rodriguez : 1940 Visit/Account:[id number] Date of Sevice: 05/04/2019 MR FEMUR WO/W RT INDICATION: Right lower sternal pain and weakness. Assess for abscess. COMPARISON: Right femur x-ray on 04/28/2013. X-ray of the right hip and right knee on 05/03/2019. FINDINGS: Multiplanar multisequence images of the right femur were obtained prior to and after admi nistration of intravenous contrast 15 mL MultiHance. No reaction to contrast noted. Soft tissues of the right hip and right thigh show normal fat and muscle planes. No masses or fluid c ollections. No abnormal enhancement or enhancing lesions. The muscles all appear symmetric without fo madelyn abnormality The neurovascular structures appear to be grossly normal. Visualized ligaments and te ndons are grossly normal. The intrapelvic structures visualized within normal limits. The very small amount free fluid seen in the pelvis. The bony structures show no fracture or dislocation. No bony lesions. No periosteal abnormality. The hip shows no significant effusion. There is very mild degenerative change seen in the hips including mild joint space narrowing subchondral bony changes. The knee joint shows no significant effusion. IMPRESSION: 1. No indication of acute abnormality. No fluid collections or mass. Bony structures are intact. No a ppreciable joint effusions. 2. The right hip shows very mild osteoarthritic changes. 3. Very small amount of free fluid in pelvis is nonspecific. Report Dictated By: Dave Mckenna at 05/04/2019 5:37 PM Report E-Signed By: Dave Mckenna at 05/04/2019 5:52 PM WSN:[id number]
[2019-05-04] MEDS ORDERED: INSULIN GLARGINE 100 U/ML 3 ML PEN SUBQ SCH (21:00)
[2019-05-04] MEDS ORDERED: PRAVASTATIN SOD 20 MG TAB PO SCH (21:00)
[2019-05-05 03:01] VITALS: BP 148/73
[2019-05-05] MEDS: oxyCODONE HCL 5 MG CAP PO PRN ×2 (06:26→12:21)
[2019-05-05 07:56] VITALS: BP 114/65
[2019-05-05] MEDS: INSULIN HUM LISPRO 100 UN/ML 3 ML VIAL SUBQ PRN ×2 (08:56→12:21)
[2019-05-05] MEDS: PANTOPRAZOLE SOD 40 MG TABEC PO SCH (08:58)
[2019-05-05] MEDS: LOSARTAN POTASSIUM 50 MG TAB PO SCH (08:58)
[2019-05-05] MEDS: SERTRALINE HCL 50 MG TAB PO SCH (08:58)
[2019-05-05] MEDS: ASPIRIN 81 MG ENTERIC COATED PO SCH (08:58)
[2019-05-05] MEDS: CARVEDILOL 6.25 MG TAB PO SCH (08:58)
[2019-05-05] MEDS: GABAPENTIN 300 MG CAP PO SCH (08:58)
[2019-05-05] MEDS ORDERED: LIDOCAINE 5% PATCH TP SCH (09:00)
--- NOTE | 2019-05-05 10:03 | Medical Nutrition Therapy ---
Nutrition Anthropometrics Height (Inches): 66.00 Height (Calculated Centimeters: 167.482797 Weight (Pounds): 196 Weight (Calculated Kilograms): 88.989 BMI: 31.7 Jean-Paul Nutrition Score: Adequate Jean-Paul Nutrition Risk Score: 16 Dietary Referral Nutrition Risk Factors: Diff. Swallowing Nutrition Risk Comment: DIFF CHEWING Physical Findings Physical Appearance: Obese BMI 30-39 Skin Appearance Skin Appearance: Edema Edema Location Modifier: Both Edema Location: Lower Extremity Type of Edema: Degree of Edema: Gastrointestinal Symptoms GI Symtoms: Tube Present: Bowel Sounds: Recent Bowel Pattern: Stool Characteristics: Nutritional Diagnosis Nutritional Risk Acuity 2: Blood Glucose > 300mg/dl Nutritional Risk Acuity 3: Eat/Chew Problem Nutritional Risk Acuity 4: Good Appetite Past Medical History: pnuemonia, CAD, Fibromyalgia, DVT, HTN, DM2, dysphagia, dementia Nutritional Acuity: 2-Moderate Nutrition Diagnosis: Inconsistent Carb. Intake Nutrition Etiology: Physiological Causes, Prolonged Hospitalization Nutrition Problem/Etiology/Sym: AEB RBG 406 Adjusted Energy Requirement Re: 1455 (HB= 1515, IJ= 1400, adj for obesity) Protein Requirement: 71 (.8gm/kg) Fluid Requirement: 1455 (1ml/kcal) Diet Type: Diabetic Nutrition Intervention: Cont diet as ordered, Encourage intake Nutrition Monitoring & Eval Nutrition Goals: Eat 75-100% Meal Nutrition Follow-Up: Good Intake RD Patient Assessment Time: [address] Assessment Type: RD Assessment Patient Nutrition Acuity: 2-Moderate Follow Up Date: May 08, 2019 Nutritional Comment: 05/04 pt admitted with leg pain. Pt on diabetic diet and reporting chewing difficulits. Will offer soft, moist foods. Nursing reported swallowing difficulties last admission 01/2019. Will monitor for s/s of swallowing problems. No intake currently reported. BG elevated up to 315. Pt did receieve steroid in ER which may have contributed to elevated BG. Will cont to monitor and encourage intake. ASHLEE 05/05 Pt cont on diabetic diet. No swallowing issues reported. Pt eating 100% of meals. RBG was elevated up to 406 but is declining with last RBG of 184. Alb 3.9. Will cont to monitor and encourage intake. SHANI BLANCA May 05, 2019 10:03
[2019-05-05] MEDS: ACETAMINOPHEN 325 MG TAB PO PRN (10:37)
--- NOTE | 2019-05-05 10:47 | Hospitalist Progress Note ---
Subjective Progress Notes Subjective She was admitted with leg pain. She is crying from her pain this morning. Patient Complains of: Cardiovascular: No: Chest Pain Respiratory: No: Shortness of Breath Physical Exam Vital Signs Date Time Temp Pulse Resp B/P (MAP) Pulse Ox O2 Delivery O2 Flow Rate FiO2 05/05/19 07:56 98.9 79 12 114/65 (81) 96 Nasal Cannula 05/05/19 03:01 2.0 Intake and Output 05/05/19 01:04 Intake Total 440 ml Balance 440 ml Intake Oral 440 ml # Voids 8 General Appearance: Alert, Awake, No Acute Distress, Afebrile Neuro: No Gross deficits Cardiovascular: Regular Rate and Rhythm Respiratory: No Respiratory Distress, Clear to Auscultation Extremities: Warm, Perfused, Other (no swelling noted to right leg, no reddness) Psych: Appropriate Mood & Affect Result Diagram: 05/04/19 1105 05/04/19 1105 Assessment and Plan Problems: (1) Right leg pain Status: Acute Assessment & Plan: She complains of right leg pain and inability to move. Her sed rate is elevated, but her symptoms are unilateral. She did receive a dose of steroids in the emergency room , which she reports had no improvement in symptoms. Likely, rules out possible polymyalgia rheumatica. She does point specifically to the lateral thigh and is tender along the IT band. She also has a history of fibromyalgia. Physical therapy has been consulted. She had MRI of her leg which was essentially negative. It did show some osteoarthritis of her hip, but the knee had no effusions present. Will add Lidocaine patch and PT to evaluate today. (2) Type 2 diabetes mellitus Status: Chronic Assessment & Plan: She is on chronic treatment with Basaglar. We have placed her on Lantus and sliding scale level #2. (3) Hypertension Status: Acute Assessment & Plan: She is on chronic treatment with losartan. (4) Depression with anxiety Status: Chronic Assessment & Plan: She is on chronic treatment with sertraline. (5) CAD (coronary artery disease) Status: Chronic Assessment & Plan: She is on chronic treatment with aspirin and carvedilol. Heart Failure Ejection Fraction %: 62 RVSP (mmHg): 28 NYHA Class: I Is Patient on LORNA Inhibitor?: Yes Is Patient on Beta Agus?: Yes Admission Weight: 165 Exam Sepsis Risk: No Definite Risk Problem Qualifiers (1) Hypertension: Hypertension type: essential hypertension Qualified Codes: I10 - Essential (primary) hypertension AUNG YBARRA [employer] May 05, 2019 10:47
--- NOTE | 2019-05-05 11:01 | NUR ---
Physical Therapy Impression Pt demos decreased wt bearing on R) LE due in part to previous CVAs with R) sided hemiparesis. Pain significantly improved after muscle energy technique treatment to address SI joint pain and pt was then able to side step at EOB to facilitate repositioning. Pt would be safe at a W/C level of mobility within her home and have [facility] agency continue to address further strengthening and SI joint mobilization needs as pain indicates. Physical Therapy Goals Pt met goals with initial visit; no further visits planned. 1. Pt to tolerate muscle energy technique for R) anterior rotation of ilium 2. Pt to demo improved pain management and tolerate sitting at EOB with Min assist 3. Pt to complete sit to/from stand and side step at EOB with min assist and pain in manageable range. Patient's Goals
[2019-05-05 11:23] VITALS: BP 97/68
[2019-05-05] MEDS ORDERED: TRAM-420 PO ×2 (11:23→11:37)
--- NOTE | 2019-05-05 11:41 | Hospitalist Depart ---
Discharge Summary Reason for Hosp/Final Diag: (1) Right leg pain Status: Acute Hospital Course & Plan: She complains of right leg pain and inability to move. Her sed rate was elevated, but her symptoms are unilateral. She did receive a dose of steroids in the emergency room , which she reports had no improvement in symptoms. Likely, rules out possible polymyalgia rheumatica. She does point specifically to the lateral thigh and is tender along the IT band. She also has a history of fibromyalgia. Physical therapy was consulted and helped patient to return to her baseline and now denies any pain. She had MRI of her leg which was essentially negative. It did show some osteoarthritis of her hip, but the knee had no effusions present. She will be sent home with small amount of pain medications. She should follow up with PCP in 1-2 weeks. She should continue with home health physical therapy. (2) Type 2 diabetes mellitus Status: Chronic Hospital Course & Plan: She is on chronic treatment with Basaglar. We have placed her on Lantus and sliding scale level #2. (3) Hypertension Status: Acute Hospital Course & Plan: She is on chronic treatment with losartan. (4) Depression with anxiety Status: Chronic Hospital Course & Plan: She is on chronic treatment with sertraline. (5) CAD (coronary artery disease) Status: Chronic Hospital Course & Plan: She is on chronic treatment with aspirin and carvedilol. 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pen, 30 UNIT SQ 01/15/19 Sertraline Hcl (SERTRALINE HCL) 50 Mg Tablet, 1 TAB PO QDAY, TAB 01/15/19 Insulin Lispro 200 UN/ML PEN (Humalog Kwikpen) 200 Unit/1 Ml Insuln.pen, 18 UNITS SQ TID 10/06/17 Oxygen (OXYGEN) Inha, 0 INH, L 06/21/15 Nitroglycerin (NITROSTAT) 0.4 Mg Subl, 0.4 MG SL PRN, TAB 06/21/15 Aspirin (ASPIR 81) 81 Mg Tablet.dr, 81 MG PO QDAY, TAB 06/21/15 Pravastatin Sodium (PRAVASTATIN SODIUM) 20 Mg Tablet, 20 MG PO HS, TAB 06/21/15 Pantoprazole Sodium (PANTOPRAZOLE SODIUM) 40 Mg Tablet.dr, 40 MG PO QDAY, TAB.SR 06/21/15 Discontinued Scripts Prednisone (PREDNISONE) 20 Mg Tablet, 20 MG PO QDAY for reduction of infla mmation, #5 Prov:MAYA EASON Fernando CARRASCO 05/03/19 Tramadol Hcl (TRAMADOL HCL) 50 Mg Tablet, 1 TAB PO Q4-6H for PAIN, #15 MG TAKE ONE TABLET BY MOUTH EVERY FOUR TO SIX HOURS NEEDED Prov:YUMIMAYA King DO 05/03/19 Phenazopyridine Hcl (PHENAZOPYRIDINE HCL) 200 Mg Tablet, 200 MG PO TID, #12 TAB 0 Refills Prov:MAHAD LLANES MD 04/06/19 Amoxicillin (AMOXICILLIN) 500 Mg Capsule, 1 CAP PO Q8H, #15 CAPSULE 0 Refills Prov:MAHAD LLANES MD 04/06/19 Diet: Diabetic Activity: As Tolerated, With Walker Special Instructions: Take pain medication for severe pain. Follow up with primary care provider in 1-2 weeks. Continue physical therapy at home. Copies to: KAMRAN ALANIS MD ; Venous Thromboembolism Antithrombotics Is Pt On Any Antithrombotics?: No Heart Failure Ejection Fraction %: 62 RVSP (mmHg): 28 NYHA Class: I Is Patient on LORNA Inhibitor?: Yes Is Patient on Beta Agus?: Yes Admission Weight: 165 [id number] Certification Face to Face Home Health Certification Patient's Primary Care Provider: Kamran Alanis MD Institutional Provider conducted the [id number]-ab-[id number] encounter. Electronic Undersigning Physician Certifies Home Health. I certify that the patient has been under my care and that I had a eyqx-yy-szik encounter that meets the physician vuwq-rs-dphy encounter requirements with this patient. This patient is home-bound due to safety issues and continues to require assistance with ADL's. I certify that based on my findings, that Nursing, Aides and the following Home Health services are medically necessary: Medical Necessity: Nursing, Rehab Date Face to Face Conducted: May 05, 2019 Problem Qualifiers (1) Hypertension: Hypertension type: essential hypertension Qualified Codes: I10 - Essential (primary) hypertension AUNG YBARRA PROGRAM SUPERVISOR May 05, 2019 11:41
[2019-05-05] MEDS ORDERED: PATCH REMOVAL 1 EA TP SCH (21:00)
== END 2019-05-05 11:33 | disposition home health service (06) ==
LOC: ER 20:46 → INTOOBSV 05-04 03:24 → MED 05-04 03:24
PROVIDERS: ADMIT Family Medicine; ATTEND Family Medicine
DX: M79.604 Pain in right leg (principal); R70.0 Elevated erythrocyte sedimentation rate; R41.82 Altered mental status, unspecified; Z87.828 Personal history of other (healed) physical injury and trauma; E11.9 Type 2 diabetes mellitus without complications; I11.0 Hypertensive heart disease with heart failure; I50.30 Unspecified diastolic (congestive) heart failure; F32.9 Major depressive disorder, single episode, unspecified; F41.9 Anxiety disorder, unspecified; M79.7 Fibromyalgia; I25.10 Atherosclerotic heart disease of native coronary artery without angina pectoris; R09.02 Hypoxemia; Z79.4 Long term (current) use of insulin; Z79.82 Long term (current) use of aspirin; Z79.899 Other long term (current) drug therapy; Z99.81 Dependence on supplemental oxygen; Z87.891 Personal history of nicotine dependence
CPT/HCPCS: 36415; 36416; 70450; 71045; 73502; 73562; 73720; 81001; 82550; 82948; 83605; 84484; 85025; 85651; 87040; 93005; 96372; 96374; 96375; 97110; 97162; 97530; 99284; A9270; A9577; G0378; J0360; J1815; J2930; J3010; J7030; 82040; 82247; 82310; 82374; 82435; 82565; 82947; 84075; 84132; 84155; 84295; 84450; 84460; 84520

== ENCOUNTER → 2019-05-03 | Outpatient (CLI) | payer MEDICARE, MEDICAID ==
[~2019-05-03] MED LIST changes: +AMOX-362 PO; +PHEN200T32 PO; +PRED20TA6 PO
[2019-05-04 10:12] VITALS: BMI 31.6
== END ==
LOC: AMB 19:56
PROVIDERS: ATTEND Nurse Practitioner
DX: M25.551 Pain in right hip (principal)
CPT/HCPCS: A0425; A0433